=== PATIENT | female | born 1990 | race Caucasian/White ===

== ENCOUNTER 2020-01-20 15:25 | Outpatient (REF) | payer OTHER, MEDICAID, SELFPAY | END 2020-01-20 15:26 | disposition home or self-care (01) | LOC: HO.LAB 15:25 | PROVIDERS: Visit Provider Internal Medicine | DX: Z20.828 Contact with and (suspected) exposure to other viral communicable diseases (principal) | CPT/HCPCS: C9803; U0003 ==

== ENCOUNTER 2022-06-26 18:51 | Emergency (ER) | payer MEDICAID, SELFPAY ==
--- NOTE | ~2022-06-26 | US_ITS ---
EXAMINATION: US OB LIMITED CLINICAL INFORMATION: Fall. Assess movement, evaluate for hemorrhage. COMPARISON: None available. TECHNIQUE: Grayscale, Doppler, and cine images were obtained. FINDINGS: Single intrauterine gestation identified. heart rate measuring 115 bpm. Normal movement. Unremarkable-appearing posterior placenta. US/US OB limited IMPRESSION: Single intrauterine gestation with a heart rate measuring 115 bpm and normal movement. Unremarkable placenta.
[2022-06-26 18:55] VITALS: BP 105/61; PULSE 100; RESP 20; TEMP 36.6; O2SAT 100; BMI 34.7
[2022-06-26 19:29] LABS: MANUAL DIFF FLAG NO
[2022-06-26 19:31] LABS: Basophils Percent Auto 0.1 % (0-2); Eosinophils Absolute Auto 0.1 X10*3/uL (0.0-0.4); Eosinophils Percent Auto 0.8 % (0-4); Hematocrit 31.8 % (37.0-47.0); Hemoglobin 10.4 g/dl (12.0-16.0); Imm Gran Abs Auto 0.04 X10*3/uL (0.00-0.03); Imm Gran Pct Auto 0.5 % (0.0-0.4); Lymphocytes Absolute Auto 1.8 X10*3/uL (1.2-4.9); Lymphocytes Percent Auto 19.8 % (20-40); Mean Corpuscular HGB Conc 32.7 g/dl (31.0-35.0); Mean Corpuscular Hemoglobin 29.7 pg (27.0-33.0); Mean Corpuscular Volume 90.9 fL (80.0-98.0); Mean Platelet Volume 10.4 fL (9.4-12.3); Monocytes Absolute Auto 0.7 X10*3/uL (0.1-1.2); Monocytes Percent Auto 7.8 % (2-11); Neutrophils Absolute Auto 6.3 x10*3/uL (2.0-8.3); Platelet Count 218 X10*3/uL (160-400); Red Cell Distribution Width 11.9 % (11.0-16.0); White Blood Count 8.9 X10*3/uL (4.8-10.8)
[2022-06-26 19:46] LABS: COVID-19 Test Negative (Negative); IDNOW Serial# 08D9AD1C
[2022-06-26 19:54] LABS: Alanine Aminotransferase 9 U/L (0-31); Albumin Level 3.5 g/dL (3.5-5.0); Alkaline Phosphatase 88 U/L (39-117); Anion Gap 10 (12-20); Aspartate Amino Transferase 15 U/L (5-31); Bilirubin Total 0.2 mg/dL (0.0-1.0); Blood Urea Nitrogen 7 mg/dL (9-16); Calcium 8.8 mg/dL (8.4-10.2); Carbon Dioxide 25 mmol/L (22-29); Chloride 107 mmol/L (96-108); Creatinine Clr Calc Pharmacy 130.6; Estimated Glomerular Filt Rate > 60; Glucose Random 101 mg/dL (60-115); Magnesium 1.8 mg/dL (1.6-2.6); Potassium 4.1 mmol/L (3.3-5.1); Sodium 138 mmol/L (135-145); Total Protein 6.2 g/dL (6.5-8.0)
[2022-06-26 20:11] LABS: HCG Quantitative 29242 mIU/mL
[2022-06-26 20:16] VITALS: BP 99/46; PULSE 79
[2022-06-26 20:17] VITALS: BP 103/41; PULSE 80
[2022-06-26 20:20] VITALS: BP 101/51; PULSE 80
[2022-06-26 20:22] VITALS: BP 103/41; PULSE 82; RESP 16; TEMP 36.8; O2SAT 98
[2022-06-26] MEDS: 0.9 % Sodium Chloride 1,000 ML 999 ML IV (20:31)
[2022-06-26 20:40] LABS: Appearance Urine Cloudy; Color Urine Yellow; Glucose Urine UA Negative (Negative); Leukocyte Esterase Urine Trace (Negative); Nitrite Urine Negative (Negative); UMIC TRIGGER UACC YES; Urine Blood Negative (Negative); Urine Ketones Negative (Negative); Urine Protein Negative (Neg-Trace)
[2022-06-26 20:45] LABS: Bacteria Urine 3+ (None Seen); Hyaline Casts Urine 0-2 /LPF (0-2); RBC Urine 0-2 /HPF (0-2); WBC Urine 0-5 /HPF (0-5)
--- NOTE | 2022-06-26 20:46 | ED_ITS ---
HPI - General Adult General Chief complaint: Fall Stated complaint: Fall/Dizziness/7 months Time Seen by Provider: 06/26/22 19:56 Source: patient, family, RN notes reviewed, old records reviewed and flag signalman Mode of arrival: ambulatory Limitations: no limitations History of Present Illness HPI narrative: 32-year-old female with past medical history significant for anemia presents for evaluation of dizziness and fall. Patient reports that she is 29 weeks , . She states that around noon today she felt dizzy causing her to fall to the ground. She states that ?the room is spinning and I felt lightheaded. ? She states that this has happened in the past with her Patient complains of mild right hip pain Denies hitting head or losing consciousness. No abdominal pain, vaginal bleeding or discharge Related Data Previous Rx's Medication Instructions Recorded amoxicillin 500 mg tablet 500 mg PO TID #15 tabs 06/26/22 Allergies Allergy/AdvReac Type Severity Reaction Status Date / Time latex [LATEX] AdvReac Mild RASH Unverified 10/27/19 19:48 Review of Systems Constitutional: Constitutional: Reports as per HPI, Denies chills, Denies fatigue, Denies fever(s) and Denies headache(s) Comments: Reports dizziness ENT: Denies headache(s) Cardiovascular: Cardiovascular: Denies chest pain and Denies dyspnea Respiratory: Respiratory: Denies cough and Denies dyspnea Gastrointestinal: Gastrointestinal: Denies abdominal pain, Denies constipation and Denies vomiting Genitourinary: Genitourinary: Denies dysuria Musculoskeletal: Musculoskeletal: Reports arthralgias (Reports right hip pain) Neurologic: Denies headache(s) and Denies focal weakness Endocrine: Endocrine: Denies fatigue PMFSH Social History Social History Advance Directives: No Advance Directives Information Provided: No Physical Exam ED Vital Signs: Vital Signs - 24 hr 06/26/22 18:55 06/26/22 20:16 06/26/22 20:22 Temperature 97.9 F 98.2 F Pulse Rate 100 79 82 Respiratory Rate 20 16 Blood Pressure 105/61 99/46 L 103/41 L Pulse Oximetry 100 98 Oxygen Delivery Method Room Air Room Air 06/26/22 20:17 06/26/22 20:20 Temperature Pulse Rate 80 80 Respiratory Rate Blood Pressure 103/41 L 101/51 L Pulse Oximetry Oxygen Delivery Method BMI result Body Mass Index 34.7 Const General: healthy appearing, comfortable, no acute distress, alert and awake Nutritional Appearance: well nourished Orientation/consciousness: patient oriented x3 HENMT Head: Yes normocephalic and Yes atraumatic Eyes Eyelids: Yes eyelids normal Conjunctivae: conjunctivae normal Sclerae: sclerae normal Corneas: corneas normal Pupils: Equal, round and reactive pupils present EOM: EOMs intact bilaterally Neck Neck: Yes full ROM Resp Effort & Inspection: normal respiratory effort, able to speak in complete sentences, no audible wheezes and not labored Auscultation: clear to auscultation bilaterally Cardio Rate: regular rate Rhythm: regular rhythm GI Inspection: Yes distended (Gravid abdomen) Palpation (GI): nontender and no guarding Back/Spine/Pelvis Other: No visual or palpable deformities the hips or pelvis. Patient has full range of motion to the H lower extremities bilaterally without deformity. No tenderness to the hips bilaterally. Skin General skin exam: no rashes or lesions noted and elasticity normal Neuro General: patient oriented x3 Cranial nerves: Yes CN's II-XII intact bilaterally, Yes Equal, round and reactive pupils present and Yes Bilaterally intact EOM present Cognition (Neuro): normal cognition Extrem Other: Moving all extremities well without any obvious deformities Medications Administered Generic Name Dose Route Start Last Admin Trade Name Freq PRN Reason Stop Dose Admin Sodium Chloride 1,000 mls @ 999 mls/hr 06/26/22 20:30 06/26/22 20:31 Ns IV 06/26/22 21:30 999 mls/hr .Q1H1M SEGUNDO Administration Medical Decision Making Medical Decision Making [facility] Narrative: Patient complains of right hip pain no has no objective findings that area. She is able to stand without any difficulty, very low suspicion for hip or pelvis fracture. She was slightly hypotensive which could explain the patient's dizziness. She which she with IV fluids. She was not orthostatic. The patient has a history of anemia. She denies any bleeding from anywhere, denies black or bloody stool. She will follow-up with her OBGYN for this. Ultrasound does not show any evidence of traumatic subchronic hemorrhage or concerns with the fetus. All other mild anemia, the labs are without significant abnormality. The patient is ambulatory with a steady, even gait. Patient's urine sample has leukocyte esterase with 3+ bacteria. Difficult to determine if the specimen is contaminated versus actual UTI. Given that she is will treat with amoxicillin Differential Diagnosis Dizziness Orthostasis Vertigo UTI Dehydration Anemia Lab Data MDM Lab Attestation statement: I reviewed the patient's lab results. 06/26/22 19:25 06/26/22 19:25 Labs: Lab Results 06/26/22 06/26/22 06/26/22 Range/Units 19:25 19:25 19:25 WBC 8.9 (4.8-10.8) X10*3/uL RBC 3.50 L (4.20-5.50) X10*6/uL Hgb 10.4 L (12.0-16.0) g/dl Hct 31.8 L (37.0-47.0) % MCV 90.9 (80.0-98.0) fL MCH 29.7 (27.0-33.0) pg MCHC 32.7 (31.0-35.0) g/dl RDW 11.9 (11.0-16.0) % Plt Count 218 (160-400) X10*3/uL MPV 10.4 (9.4-12.3) fL Immature Gran % (Auto) 0.5 H (0.0-0.4) % Neut % (Auto) 71.0 (45-73) % Lymph % (Auto) 19.8 L (20-40) % [place] % (Auto) 7.8 (2-11) % Eos % (Auto) 0.8 (0-4) % Baso % (Auto) 0.1 (0-2) % Lymph # (Auto) 1.8 (1.2-4.9) X10*3/uL [place] # (Auto) 0.7 (0.1-1.2) X10*3/uL Eos # (Auto) 0.1 (0.0-0.4) X10*3/uL Baso # (Auto) 0.0 (0.0-0.2) X10*3/uL Abs Immat Gran (auto) 0.04 H (0.00-0.03) X10*3/uL Absolute Neuts (auto) 6.3 (2.0-8.3) x10*3/uL Absolute Nucleated RBC 0.000 (0.0-0.012) X10*3/uL Nucleated RBC % (auto) 0.0 (0.0-0.2) /100WBC Sodium 138 (135-145) mmol/L Potassium 4.1 (3.3-5.1) mmol/L Chloride 107 (96-108) mmol/L Carbon Dioxide 25 (22-29) mmol/L Anion Gap 10 L (12-20) BUN 7 L (9-16) mg/dL Creatinine 0.63 (0.5-1.4) mg/dL Estim Creat Clear Calc 130.6 Estimated GFR > 60 Random Glucose 101 (60-115) mg/dL Calcium 8.8 (8.4-10.2) mg/dL Magnesium 1.8 (1.6-2.6) mg/dL Total Bilirubin 0.2 (0.0-1.0) mg/dL AST 15 (5-31) U/L ALT 9 (0-31) U/L Alkaline Phosphatase 88 (39-117) U/L Total Protein 6.2 L (6.5-8.0) g/dL Albumin 3.5 (3.5-5.0) g/dL Beta HCG, Quant 41029 mIU/mL Urine Color Urine Appearance Urine pH (5.0-9.0) Ur Specific [place] (1.005-1.025) Urine Protein (Neg-Trace) mg/dL Urine Glucose (UA) (Negative) mg/dL Urine Ketones (Negative) mg/dL Urine Blood (Negative) Urine Nitrite (Negative) Ur Leukocyte Esterase (Negative) COVID-19 (JESUS) Negative (Negative) COVID-19 Clin Com See Note 06/26/22 Range/Units 20:33 WBC (4.8-10.8) X10*3/uL RBC (4.20-5.50) X10*6/uL Hgb (12.0-16.0) g/dl Hct (37.0-47.0) % MCV (80.0-98.0) fL MCH (27.0-33.0) pg MCHC (31.0-35.0) g/dl RDW (11.0-16.0) % Plt Count (160-400) X10*3/uL MPV (9.4-12.3) fL Immature Gran % (Auto) (0.0-0.4) % Neut % (Auto) (45-73) % Lymph % (Auto) (20-40) % [place] % (Auto) (2-11) % Eos % (Auto) (0-4) % Baso % (Auto) (0-2) % Lymph # (Auto) (1.2-4.9) X10*3/uL [place] # (Auto) (0.1-1.2) X10*3/uL Eos # (Auto) (0.0-0.4) X10*3/uL Baso # (Auto) (0.0-0.2) X10*3/uL Abs Immat Gran (auto) (0.00-0.03) X10*3/uL Absolute Neuts (auto) (2.0-8.3) x10*3/uL Absolute Nucleated RBC (0.0-0.012) X10*3/uL Nucleated RBC % (auto) (0.0-0.2) /100WBC Sodium (135-145) mmol/L Potassium (3.3-5.1) mmol/L Chloride (96-108) mmol/L Carbon Dioxide (22-29) mmol/L Anion Gap (12-20) BUN (9-16) mg/dL Creatinine (0.5-1.4) mg/dL Estim Creat Clear Calc Estimated GFR Random Glucose (60-115) mg/dL Calcium (8.4-10.2) mg/dL Magnesium (1.6-2.6) mg/dL Total Bilirubin (0.0-1.0) mg/dL AST (5-31) U/L ALT (0-31) U/L Alkaline Phosphatase (39-117) U/L Total Protein (6.5-8.0) g/dL Albumin (3.5-5.0) g/dL Beta HCG, Quant mIU/mL Urine Color Yellow Urine Appearance Cloudy Urine pH 7.0 (5.0-9.0) Ur Specific [place] 1.020 (1.005-1.025) Urine Protein Negative (Neg-Trace) mg/dL Urine Glucose (UA) Negative (Negative) mg/dL Urine Ketones Negative (Negative) mg/dL Urine Blood Negative (Negative) Urine Nitrite Negative (Negative) Ur Leukocyte Esterase Trace H (Negative) COVID-19 (JESUS) (Negative) COVID-19 Clin Com Radiology Impression Discussion of test interpretation with radiology: I have reviewed the radiologist's reading. (Unremarkable 29 week ultrasound) Discharge Plan Discharge Clinical Impression: Dizziness, , UTI (urinary tract infection) in in third trimester Patient Disposition: Home, Self-Care Instructions: Urinary Tract Infection in (ED) Additional Instructions: Your blood work showed a mild anemia. This is not likely to be the cause of your dizziness Your blood pressure was somewhat low and you will treat with IV fluids Your urine sample shows concern for urinary tract infection Take the amoxicillin 3 times daily for the next 5 days Follow-up with your OBGYN Prescriptions: New amoxicillin 500 mg tablet 500 mg PO TID Qty: 15 0RF
== END 2022-06-26 22:16 | disposition home or self-care (01) ==
PROVIDERS: Physician Assistant; Emergency Provider Internal Medicine
DX: O26.893 Other specified pregnancy related conditions, third trimester (principal); R42 Dizziness and giddiness; M25.551 Pain in right hip; O23.43 Unspecified infection of urinary tract in pregnancy, third trimester; N39.0 Urinary tract infection, site not specified; Z3A.29 29 weeks gestation of pregnancy; Z20.822 Contact with and (suspected) exposure to COVID-19
CPT/HCPCS: 76815; 80053; 81001; 83735; 84702; 85025; 87635; 96360; 96361; 99284; 99285

== ENCOUNTER 2023-03-19 09:17 | Emergency (ER) | payer MEDICAID, SELFPAY ==
--- NOTE | ~2023-03-19 | CT_ITS ---
EXAMINATION: CT ABDOMEN AND PELVIS WITH CONTRAST CLINICAL INFORMATION: Right lower quadrant abdominal pain COMPARISON: None available. TECHNIQUE: Multidetector volumetric images were obtained from the superior aspect of the liver through the pubic symphysis following administration 85 mL of Omnipaque 350 intravenous contrast. Sagittal and coronal reformatted images were obtained on the technologist's workstation. This CT examination was performed using dose optimization techniques as appropriate, variously including the following: *Automated exposure control *Adjustment of mA and/or kV according to patient size (this includes techniques or standardized protocols for targeted exams where dose is matched to indication/reason for exam; i.e. extremities or head) *Use of iterative reconstruction technique DLP: 459 mGy-cm FINDINGS: Visualized lung bases are well aerated. The liver is normal in size. The gallbladder is normal in appearance. The pancreas, spleen and adrenal glands are unremarkable. Symmetrically enhancing kidneys. No hydronephrosis of either kidney. Debris-filled stomach. Normal caliber loops of small and large bowel. Mild colonic stool burden. Normal appendix. Normal caliber abdominal aorta. Dilated refluxing bilateral ovarian veins, more prominent on the left. Mild bilateral periuterine varices. The bladder is normal in appearance. Anteverted uterus. Uterus appears adherent to the anterior abdominal wall, possibly a post change. Numerous follicles noted within the right ovary. Trace amount of free pelvic fluid, likely physiologic. No inguinal lymphadenopathy. No acute osseous abnormality. CT/CT abdomen pelvis w IV con IMPRESSION: 1. No CT evidence for acute abnormality within the abdomen or pelvis. Normal appendix. 2. Dilated refluxing bilateral ovarian veins, more prominent on the left. Mild bilateral periuterine varices. Findings are nonspecific but can be seen in the setting of retroperitoneal venous malformation. 3. Uterus appears adherent to the anterior abdominal wall, possibly a post change. Fleischner guidelines were followed.
[2023-03-19 09:20] VITALS: BP 108/49; PULSE 81; RESP 18; TEMP 36.4; O2SAT 97; BMI 29.5
[2023-03-19 09:39] LABS: MANUAL DIFF FLAG NO
[2023-03-19 09:40] LABS: Basophils Percent Auto 0.2 % (0-2); Eosinophils Absolute Auto 0.1 X10*3/uL (0.0-0.4); Eosinophils Percent Auto 1.7 % (0-4); Hematocrit 36.9 % (37.0-47.0); Hemoglobin 12.3 g/dl (12.0-16.0); Imm Gran Abs Auto 0.01 X10*3/uL (0.00-0.03); Imm Gran Pct Auto 0.2 % (0.0-0.4); Lymphocytes Absolute Auto 1.8 X10*3/uL (1.2-4.9); Lymphocytes Percent Auto 31.5 % (20-40); Mean Corpuscular HGB Conc 33.3 g/dl (31.0-35.0); Mean Corpuscular Hemoglobin 28.3 pg (27.0-33.0); Mean Corpuscular Volume 84.8 fL (80.0-98.0); Mean Platelet Volume 10.1 fL (9.4-12.3); Monocytes Absolute Auto 0.3 X10*3/uL (0.1-1.2); Monocytes Percent Auto 5.2 % (2-11); Neutrophils Absolute Auto 3.6 x10*3/uL (2.0-8.3); Neutrophils Percent Auto 61.2 % (45-73); Platelet Count 265 X10*3/uL (160-400); Red Blood Count 4.35 X10*6/uL (4.20-5.50); White Blood Count 5.8 X10*3/uL (4.8-10.8)
[2023-03-19 09:41] LABS: Appearance Urine Clear; Color Urine Yellow; Glucose Urine UA Negative (Negative); Leukocyte Esterase Urine Negative (Negative); Nitrite Urine Negative (Negative); PH 6.5 (5.0-9.0); Specific Gravity - Urine 1.025 (1.005-1.025); Urine Blood Negative (Negative); Urine Ketones Negative (Negative); Urine Protein Negative (Neg-Trace)
[2023-03-19 09:43] LABS: UPreg QC Valid YES; Urine Pregnancy NEGATIVE (NEGATIVE)
[2023-03-19 09:53] LABS: Bacteria Urine None Seen (None Seen); Hyaline Casts Urine 0-2 /LPF (0-2); RBC Urine 0-2 /HPF (0-2); WBC Urine 0-5 /HPF (0-5)
[2023-03-19 09:54] LABS: Alanine Aminotransferase 16 U/L (0-31); Albumin Level 4.2 g/dL (3.5-5.0); Alkaline Phosphatase 118 U/L (39-117); Anion Gap 11 (12-20); Aspartate Amino Transferase 16 U/L (5-31); Bilirubin Direct 0.2 mg/dL (0.0-0.5); Bilirubin Total 0.6 mg/dL (0.0-1.0); Blood Urea Nitrogen 10 mg/dL (9-16); Calcium 8.9 mg/dL (8.4-10.2); Carbon Dioxide 23 mmol/L (22-29); Chloride 108 mmol/L (96-108); Estimated Glomerular Filt Rate > 60; Glucose Random 94 mg/dL (60-115); Lipase 15 U/L (8-78); Potassium 3.8 mmol/L (3.3-5.1); Sodium 138 mmol/L (135-145); Total Protein 7.3 g/dL (6.5-8.0)
--- OUTSIDE RECORDS SUMMARY | 2023-03-19 09:59 | XMS_ITS | Continuity of Care Document ---
Author Name Unknown Organization [facility] Address [address] [place] [id number]- Care Team Providers Care Detail Maker And Fitter Name Role Phone Chitra Rodriguez MD Primary Care Physician Encounter [facility] [place] Date(s): 07/07/22 - 07/07/[address] [address]- Encounter Diagnosis Anemia(Final) - 07/07/22 (Final) - 07/07/22 Dizziness(Final) - 07/07/22 Discharge Disposition: Transferred to an intermediate care faci Attending Physician: Kellie Reeves MD Admitting Physician: Kellie Reeves MD Referring Physician: Not on Staff, Referring MD Allergies, Adverse Reactions, Alerts Substance Reaction Severity Status Latex Active Medications fluconazole 150 mg oral tablet See Instructions, 1 tablet By Mouth. May repeat in 3 days if symptoms persist., # 2 tablet, 0 Refills, Maintenance, 12/13/20 16:31:00 EDT, Tablet, [facility] #[id number], Partial fill upon patient request if the prescription is for a schedule II... Start Date: 12/13/20 Status: Ordered Ibuprofen 600 mg, By Mouth, Every 6 hours, Refills 0, Maintenance, 11/11/18 15:52:11 EDT Start Date: 11/11/18 Status: Ordered Ibuprofen 800 mg, By Mouth, Refills 0, Maintenance, 04/06/18 8:16:18 EST Start Date: 04/06/18 Status: Ordered Icy Hot - ointment 1 applicator, Topically, 2 times a day, 0 Refills, Maintenance, 04/06/18 8:27:33 EST Start Date: 04/06/18 Status: Ordered levOCARNitine 330 mg oral tablet 660 mg, 2, tablet, By Mouth, 3 times a day, # 540 tablet, Refills 6, Tot. Refills 6, Maintenance, 12/23/16 14:13:05, Print Requisition Start Date: 12/23/16 Stop Date: 09/14/18 Status: Ordered methocarbamol 750 mg oral tablet 2 tablet = 1,500 mg, By Mouth, 4 times a day, # 42 tablet, 0 Refills, Maintenance, 11/11/18 15:51:45 EDT, Tablet Start Date: 11/11/18 Stop Date: 11/18/18 Status: Ordered Performix P5 Performix P5, See Instructions, # 180 Gm, Refills 1, Tot. Refills 1, Maintenance, Ketamine 10% Baclofen 2% Cyclobenzaprine 2% Diclofenac 3% Gabapentin 10% Bupivicaine 2% in Liposomal cream, 06/08/18 16:04:38 EDT, Compound Start Date: 06/08/18 Status: Ordered PNV By Mouth, Daily, 0 Refills, Maintenance, 06/23/22 10:29:00 EDT, Partial fill upon patient request if the prescription is for a schedule II opioid drug. 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 Vital Signs Most recent to oldest [Reference Range]: 1 2 3 Height 158 cm (07/07/22 2:40 PM) Oxygen Saturation [94-100 %] 99 % (07/07/22 6:30 PM) 100 % (07/07/22 6:00 PM) 99 % (07/07/22 5:00 PM) Pulse Rate [55-90 bpm] 80 bpm (07/07/22 6:30 PM) 85 bpm (07/07/22 6:00 PM) 65 bpm (07/07/22 5:00 PM) Blood Pressure [90-138/55-84 mm Hg] 100/64mm Hg (07/07/22 6:30 PM) 90/64mm Hg (07/07/22 6:00 PM) 97/47mm Hg (07/07/22 5:00 PM) Respiratory Rate [16-30 br/min] 16 br/min (07/07/22 6:30 PM) 18 br/min (07/07/22 6:00 PM) 16 br/min (07/07/22 5:00 PM) Temperature [96.8-100.4 DegF] 98 DegF (07/07/22 6:00 PM) 98.3 DegF (07/07/22 2:40 PM) Mode of Delivery (Oxygen) Room air (07/07/22 6:30 PM) Room air (07/07/22 6:00 PM) Room air (07/07/22 5:00 PM) Temperature Route Oral (07/07/22 6:00 PM) Oral (07/07/22 2:40 PM) Social History Social History Type Response Smoking Status Former smoker, quit more than 30 days ago; Exposure to Secondhand Smoke: No; Tobacco user in household: No; Other: quit with ; entered on: 06/23/22 Sex Note * Sharron Jarvis MD: PERFORM, SIGN, VERIFY Event Display: Patient Education Handout Authored Date: [id number] Patient Care team information Care Team Personnel Name: Maegan Schmitz RN Position: [facility] ED RN W/OE and Tasks Member Role: Patient Care Provider Name: Sharron Jarvis MD Position: [facility] Resident Member Role: ED Resident Address: Address: [address] [place] [address] Name: Kellie Reeves MD Position: [facility] Resident Member Role: Admitting Physician Address: Address: [address] [place] [address] Care Team Related Persons Name: LUC BONDS Address: home [address] [place] [address] Name: MENA MOSHER Name: GEOVANY SHAW
--- OUTSIDE RECORDS SUMMARY | 2023-03-19 09:59 | XMS_ITS | Continuity of Care Document ---
Author Name Unknown Organization [facility] Address [address] [place] [address], [address] [place] [address]- Care Team Providers Care Recreational Facilities Motel Manager Name Role Phone Michael RHODES, Chitra Primary Care Physician [place] [facility] [place]04[place] - 08/11/[place] [facility] [address] [facility], [address]th [place] [address]- Attending Physician: Shady RHODES [OB], Adeline Angulo Referring Physician: Gustavo RHODES, Mariposa Escobedo Allergies, Adverse Reactions, Alerts Substance Reaction Severity Status Latex Active Immunizations Given and Recorded Vaccine Date Status Refusal Reason tetanus/diphtheria/pertussis, acel(Tdap) 07/17/22 Given tetanus/diphtheria/pertussis, acel(Tdap) 03/06/21 Recorded tetanus/diphtheria/pertussis, acel(Tdap) 02/05/17 Recorded influenza virus vaccine, inactivated 10/16/16 Shadi rded Medications clotrimazole 2% vaginal cream with applicator 1 application, Vaginally, Daily at bedtime, for 3 days, use as needed for yeast infection symptoms,# 21 Gm, 1 Refills, Acute 08/17/22 12:33:00 EDT, 08/11/22 12:33:00 EDT, Cream, [facility][id number], Partial fill upon patient request if the pr... Start Date: 08/11/22 Stop Date: 08/17/22 Status: Ordered iron sulfate By Mouth, 0 Refills, Maintenance, 07/21/22 11:10:00 EDT, Partial fill upon patient request if the prescription is for a schedule II opioid drug. Start Date: 07/21/22 Status: Ordered levOCARNitine 330 mg oral tablet 990 mg, 3, tablet, By Mouth, 4 times a day, with meals, # 360 tablet, Refills 3, Tot. Refills 3, Maintenance, 08/04/22 14:08:00 EDT, Route to Pharmacy Electronically, [facility] #[id number], Partial fill upon patient request if the prescription i... Start Date: 08/04/22 Status: Ordered MiraLax oral powder for reconstitution = 17 Gm, By Mouth, Daily, dissolve in water before taking, # 527 Gm, 0 Refills, Maintenance, 07/21/22 12:39:00 EDT, REC Powder, [facility] #[id number], Partial fill upon patient request if the prescription is for a schedule II opioid drug., 17 Gm... Start Date: 07/21/22 Status: Ordered PNV By Mouth, Daily, 0 Refills, Maintenance, 06/23/22 10:29:00 EDT, Partial fill upon patient request if the prescription is for a schedule II opioid drug. Start Date: 06/23/22 Status: Ordered Vandazole 0.75% vaginal gel with applicator 1 applicator, Vaginally, Daily at bedtime, for 5 days, # 70 Gm, 1 Refills, Acute 08/21/22 12:33:00 EDT, 08/11/22 12:33:00 EDT, Gel, [facility] #[id number], Partial fill upon patient request if the prescription is for a schedule II opioid drug., 1... Start Date: 08/11/22 Stop Date: 08/21/22 Status: Ordered Problem List Condition Confirmation Course Effective Dates Status Health St atus Informant Anemia Confirmed Active Carnitine degeneration Confirmed Active Size of fetus inconsistent with dates, antepartum Confirmed Active History of delivery affecting Confirmed Active History of HPV infection Confirmed Active Uses Moroccan as primary spoken language Confirmed Active Vital Signs Most recent to oldest [Reference Range]: 1 Height 158 cm (08/04/22 11:36 AM) Weight 68.65 kg (08/04/22 11:36 AM) Body Mass Index [18.5-24.99 kg/m2] 27.5 kg/m2 *H* (08/04/22 11:36 AM) Blood Pressure [90-138/55-84 mm Hg] 109/ 56mm Hg (08/04/22 11:36 AM) Blood pressure sites Arm, right (08/04/22 11:36 AM) Weight Obtained Via Standing scale (08/04/22 11:36 AM) Social History Social History Type Response Smoking Status Former smoker, quit more than 30 days ago; Exposure to Secondhand Smoke: No; Tobacco user in household: No; Other: quit with ; entered on: 06/23/22 Sex Patient Care team information Care Team Related Persons Name: LCU BONDS Address: [address] [address] Name: MENA MOSHER Name: CAROL ANN CROCKETT Address: home [address] [place] [address] Name: GEOVANY SHAW
--- OUTSIDE RECORDS SUMMARY | 2023-03-19 09:59 | XMS_ITS | Continuity of Care Document ---
Author Name Unknown [facility] Address [address] [facility] [address] [facility], [address] [place] [address]- Care Team Providers Care Inventory Transcriber Name Role Phone Chitra Rodriguez MD [id number] [address] [facility] [address] [facility]th [address] [place], [place] [address] Attending Physician: Not on Staff, Attending MD Referring Physician: Lakshmi Bhatia MD Allergies, Adverse Reactions, Alerts Substance Reaction Severity Status Latex Active Immunizations Given and Recorded Vaccine Date Status Refusal Reason tetanus/diphtheria/pertussis, acel(Tdap) 07/17/22 Given tetanus/diphtheria/pertussis, acel(Tdap) 03/06/21 Recorded tetanus/diphtheria/pertussis, acel(Tdap) 02/05/17 Recorded influenza virus vaccine, inactivated 10/16/16 Shadi rded Medications acetaminophen 500 mg oral tablet 2 tablet = 1,000 mg, By Mouth, Every 6 hours, PRN as needed for pain, , 90 day supply notindicated., # 50 tablet, 0 Refills, Maintenance, 09/04/22 8:30:00 EDT, Tablet, [facility]#[id number], Partial fill upon patient request if the pr... Start Date: 09/04/22 Status: Ordered ibuprofen 600 mg oral tablet 600 mg, 1, tablet, By Mouth, 4 times a day, PRN, , 90 day supply not indicated., # 120 tablet, Refills 0, Tot. Refills 0, Maintenance, for pain, 09/04/22 8:30:00 EDT, Route to Pharmacy Electronically, [facility] #[id number], Partial lindy... Start Date: 09/04/22 Status: Ordered iron sulfate By Mouth, 0 Refills, Maintenance, 07/21/22 11:10:00 EDT, Partial fill upon patient request if the prescription is for a schedule II opioid drug. Start Date: 07/21/22 Status: Ordered levOCARNitine 330 mg oral tablet 990 mg, 3, tablet, By Mouth, 3 times a day, with meals, # 360 tablet, Refills 3, Tot. Refills 3, Maintenance, 01/07/23 15:16:00 EST, Route to Pharmacy Electronically, [facility] #[id number], Partial fill upon patient request if the prescription i... Start Date: 01/07/23 Status: Ordered MiraLax oral powder for reconstitution = 17 Gm, By Mouth, Daily, dissolve in water before taking; , 90 day supply not indicated., # 255 Gm, 0 Refills, Maintenance, 09/04/22 8:30:00 EDT, REC Powder, [facility] #[id number], Partial fill upon patient request if the prescription... Start Date: 09/04/22 Status: Ordered MiraLax oral powder for reconstitution = 17 Gm, By Mouth, Daily, dissolve in water before taking, # 527 Gm, 0 Refills, Maintenance, 07/21/22 12:39:00 EDT, REC Powder, [facility] #[id number], Partial fill upon patient request if the prescription is for a schedule II opioid drug., 17 Gm... Start Date: 07/21/22 Status: Ordered oxyCODONE 5 mg oral tablet 5 mg, 1, tablet, By Mouth, Every 6 hours, PRN, , 90 day supply not indicated., # 10 tablet, Refills 0, Tot. Refills 0, Maintenance, for pain, 09/04/22 8:30:00 EDT, Route to Pharmacy Electronically, [facility] #[id number], Partial fill u... Start Date: 09/04/22 Status: Ordered PNV By Mouth, Daily, 0 Refills, Maintenance, 06/23/22 10:29:00 EDT, Partial fill upon patient request if the prescription is for a schedule II opioid drug. Start Date: 06/23/22 Status: Ordered senna - oral tablet 2 tablet, By Mouth, Daily at bedtime, PRN for constipation, , 90 day supply not indicated., # 60 tablet, 0 Refills, Maintenance, 09/04/22 8:30:00 EDT, Tablet, [facility] #[id number], Partial fill upon patient request if the prescription... 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
--- OUTSIDE RECORDS SUMMARY | 2023-03-19 09:59 | XMS_ITS | Continuity of Care Document ---
Author Name Unknown Organization [facility] [employer] [facility] Address [address], 4t [place] [address]- Care Team Providers Care Computer Systems Designer Name Role Phone Michael RHODES, Chitra Primary Care Phys[id number] Date(s): 07/25/22 - 08/01/22 [facility] [employer] [facility] [address], 4th [place] [address]- Attending Physician: Tova Bell MD Referring Physician: Delia Ortega MD Allergies, Adverse Reactions, Alerts Substance Reaction Severity Status Latex Active Immunizations Given and Recorded Vaccine Date Status Refusal Reason tetanus/diphtheria/pertussis, acel(Tdap) 07/17/22 Given tetanus/diphtheria/pertussis, acel(Tdap) 03/06/21 Recorded tetanus/diphtheria/pertussis, acel(Tdap) 02/05/17 Recorded influenza virus vaccine, inactivated 10/16/16 Shadi rded Medications iron sulfate By Mouth, 0 Refills, Maintenance, 07/21/22 11:10:00 EDT, Partial fill upon patient request if the prescription is for a schedule II opioid drug. Start Date: 07/21/22 Status: Ordered MiraLax oral powder for reconstitution = 17 Gm, By Mouth, Daily, dissolve in water before taking, # 527 Gm, 0 Refills, Maintenance, 07/21/22 12:39:00 EDT, REC Powder, [id number], Partial fill upon patient request if the prescription is for a schedule II opioid drug., 17 Gm... Start Date: 07/21/22 Status: Ordered PNV By Mouth, Daily, 0 Refills, Maintenance, 06/23/22 10:29:00 EDT, Partial fill upon patient request if the prescription is for a schedule II opioid drug. Start Date: 06/23/22 Status: Ordered Problem List Condition Confirmation Course Effective Dates Status Health St atus Informant Anemia Confirmed Active Carnitine degeneration Confirmed Active Size of fetus inconsistent with dates, antepartum Confirmed Active History of delivery affecting Confirmed Active History of HPV infection Confirmed Active Uses Moroccan as primary spoken language Confirmed Active Social History Social History Type Response Smoking Status Former smoker, quit more than 30 days ago; Exposure to Secondhand Smoke: No; Tobacco user in household: No; Other: quit with ; entered on: 06/23/22 Sex Radiology * Event Display: [facility] Standard Anatomy Survey, Lvl 1 * Event Display: [facility] Standard Anatomy Survey, Lvl 1 Authored Date: [id number] OBSTETRICS REPORT PATIENT INFO: CMRN: [id number] BMRN: [id number] : [birth year] (32 yrs)(F) Name: ANDRZEJ SERRANO Visit Date: 07/25/2022 08:09 am VIDHI PERFORMED BY: Performed By: Valerie Cruz RDMS Attending: Adeline Dc MD Referred By: Delia Ortega MD Location: [address] INDICATIONS: Size of fetus inconsistent with dates, O26.849 antepartum History of delivery affecting O34.219 EVALUATION: Num Of Fetuses: 1 Heart Rate(bpm): 150 Cardiac Activity: Present Presentation: Cephalic Placenta: Posterior Amniotic Fluid PENG FV: Within normal limits PENG Sum(cm) Largest Pocket(cm) 12.2 3.6 RUQ(cm) RLQ(cm) LUQ(cm) LLQ(cm) 2.7 3.5 3.6 2.4 BIOMETRY: BPD: 81.1 mm G.Age: 32w 4d 10 % HC: 296.3 mm G.Age: 32w 5d 2 % AC: 293.5 mm G.Age: 33w 2d 30 % FL: 61.9 mm G.Age: 32w 1d 4 % HUM: 55.8 mm G.Age: 32w 3d 24 % CI: 75.35 % 70 - 86 FL/HC: 20.9 % 19.4 - 21.8 HC/AC: 1.01 0.96 - 1.11 FL/BPD: 76.3 % 71 - 87 FL/AC: 21.1 % 20 - 24 Est. FW: 2064 gm 4 lb 9 oz 13 % GESTATIONAL AGE: LMP: 34w 1d Date: 11/28/21 STACY: 09/04/22 U/S Today: 32w 5d STACY: 09/14/22 Best: 34w 1d Det. By: LMP (11/28/21) STACY: 09/04/22 ANATOMY: Cranium: No anomalies seen Cavum: No anomalies seen Ventricles: No anomalies seen Choroid Plexus: No anomalies seen Cerebellum: NOT WELL SEEN Posterior Fossa: NOT WELL SEEN Nuchal Fold: Not measured due to GA Face: No anomalies but LIMITED views Lips: No anomalies but LIMITED views Heart: 4-chamber appeared normal RVOT: No anomalies seen LVOT: No anomalies seen Diaphragm: No anomalies seen Stomach: No anomalies seen Abdomen: No anomalies seen Abdominal Wall: NOT WELL SEEN Cord Vessels: 3-vessel cord Kidneys: No anomalies seen Bladder: No anomalies seen Spine: No anomalies but LIMITED views Upper Extremities: NOT WELL SEEN Lower Extremities: NOT WELL SEEN CERVIX UTERUS ADNEXA: Cervix Not well seen COMMENTS: The exam was limited due to late gestational age. Otherwise, the anatomy survey was unremarkable. growth is adequate. Adeline Dc MD Electronically Signed Final Report 07/25/2022 02:55 pm * Event Display: [facility] Standard Anatomy Survey, Lvl 1 Authored Date: [id number] Please click on pdf link to open report Patient Care team information Care Team Related Persons Name: LUC BONDS Address: [address] [address] Name: MENA MOSHER Name: CAROL ANN CROCKETT Address: home [address] [place] [address] Name: GEOVANY SHAW
--- OUTSIDE RECORDS SUMMARY | 2023-03-19 09:59 | XMS_ITS | Continuity of Care Document ---
Author Name Unknown Organization [facility] Address [address] [place] [address]- Care Team Providers Care Civil Service Clerk Name Role Phone Chitra Rodriguez MD Primary Care Physician [id number]10[facility] - 12/17/20 [facility] [address] [place] [address]- Encounter Diagnosis Pelvic pain(Discharge Diagnosis) - 12/10/20 Low back pain(Discharge Diagnosis) - 12/10/20 Attending Physician: Kerline Saxena MD Referring Physician: Chitra Rodriguez MD Allergies, Adverse Reactions, Alerts Substance Reaction Severity Status Latex Active Medications cyclobenzaprine 10 mg oral tablet 10 mg, 1, tablet, By Mouth, 2 times a day, PRN, for 10 days, # 20 tablet, Refills 0, Tot. Refills 0, Acute 12/20/20 16:26:00 EST, Spasm for spasm, 12/10/20 16:26:00 EDT, Route to Pharmacy Electronically, [facility] #[id number], Partial fill upo... Start Date: 12/10/20 Stop Date: 12/20/20 Status: Ordered fluconazole 150 mg oral tablet See Instructions, 1 tablet By Mouth. May repeat in 3 days if symptoms persist., # 2 tablet, 0 Refills, Maintenance, 12/13/20 16:31:00 EDT, Tablet, [facility] #[id number], Partial fill upon patient request if the [...] EDT, Compound Start Date: 06/08/18 Status: Ordered PredniSONE = 40 mg, By Mouth, Daily, 0 Refills, Maintenance, 11/11/18 15:48:40 EDT Start Date: 11/11/18 Stop Date: 11/14/18 Status: Ordered Problem List Diagnosis Diagnosis Type Effective Dates Health Status inical Service Informant Pelvic pain Discharge Diagnosis 12/10/20 Low back pain Discharge Diagnosis 12/10/20 Vital Signs Most recent to oldest [Reference Range]: 1 Height 155.7 cm (12/10/20 2:11 PM) Oxygen Saturation [94-100 %] 100 % (12/10/20 2:11 PM) Pulse Rate [55-90 bpm] 58 bpm (12/10/20 2:11 PM) Blood Pressure [90-138/55-84 mm Hg] 115/ 43mm Hg (12/10/20 2:11 PM) Temperature [96.8-100.4 DegF] 98.2 DegF (12/10/20 2:11 PM) Blood pressure sites Arm, right (12/10/20 2:11 PM) Temperature Route Temporal (12/10/20 2:11 PM)
--- OUTSIDE RECORDS SUMMARY | 2023-03-19 09:59 | XMS_ITS | Continuity of Care Document ---
Author Name Unknown Organization [facility] [employer] [facility] [facility] Address [address], 4t [place] [address]- Care Team Providers Care Manager Trust Name Role Phone Michael RHODES, Chitra Primary Care Physician [phone] [place] [facility] [place] - 08/25/22 [facility] [employer] [facility] [address], [address]th [place] [address]- Attending Physician: Shady RHODES [OB], Adeline Angulo [...] 08/04/22 14:08:00 EDT, Route to Pharmacy Electronically, [facility][id number], Partial fill upon patient request if the prescription i... Start Date: 08/04/22 Status: Ordered MiraLax oral powder for reconstitution = 17 Gm, By Mouth, Daily, dissolve in water before taking, # 527 Gm, 0 Refills, Maintenance, 07/21/22 12:39:00 EDT, REC Powder, [facility] #[id number], Partial fill upon patient request if the prescription is for a schedule II opioid drug., 17 Gm... Start Date: 07/21/22 Status: Ordered PNV By Mouth, Daily, 0 Refills, Maintenance, 06/23/22 10:29:00 EDT, Partial fill upon patient request if the prescription is for a schedule II opioid drug. Start Date: 06/23/22 Status: Ordered Valtrex 1 gm oral tablet 1 tablet = 1 Gm, By Mouth, 2 times a day, for 10 days, # 20 tablet, 0 Refills, Acute 08/28/22 10:36:00 EDT, 08/18/22 10:36:00 EDT, Tablet, [facility] #[id number], Partial fill upon patient request if the prescription is for a schedule II opioid d... Start Date: 08/18/22 Stop Date: 08/28/22 Status: Ordered Valtrex 500 mg oral tablet 500 mg, 1, tablet, By Mouth, 2 times a day, # 30 tablet, Refills 1, Tot. Refills 1, Acute 10/19/22 10:42:00 EDT, 08/28/22 10:36:00 EDT, Route to Pharmacy Electronically, [id number], Partial fill upon patient request if the prescriptio... 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 Uses Guatemalan as primary spoken language Confirmed Active Vital Signs Most recent to oldest [Reference Range]: 1 Height 158 cm (08/18/22 10:32 AM) Weight 70.83 kg (08/18/22 10:32 AM) Body Mass Index [18.5-24.99 kg/m2] 28.37 kg/m2 *H* (08/18/22 10:32 AM) Blood Pressure [90-138/55-84 mm Hg] 107/ 63mm Hg (08/18/22 10:32 AM) Blood pressure sites Arm, right (08/18/22 10:32 AM) Weight Obtained Via Standing scale (08/18/22 10:32 AM) Social History Social History Type Response Smoking Status Former smoker, quit more than 30 days ago; Exposure to Secondhand Smoke: No; Tobacco user in household: No; Other: quit with ; entered on: 06/23/22 Sex Patient Care team information Care Team Related Persons Name: LUC BONDS Address: [address] [address] Name: MENA MOSHER Name: CAROL ANN CROCKETT Address: [address] [place] [address] Name: GEOVANY SHAW
--- OUTSIDE RECORDS SUMMARY | 2023-03-19 09:59 | XMS_ITS | Continuity of Care Document ---
Author Name Unknown Organization [facility] Address [address], [address] [place] [address]- Care Team Providers Care Oxide Furnace Tender Name Role Phone Chitra Rodriguez MD Primary Care Physician [phone] [facility] [id number] Date(s): 01/19/23 - 02/18/23 [facility] [address], [address] [place], [place] [address] Attending Physician: AdmLin bowman Admitting Physician: AdmtrLin Referring Physician: Admtr, Lin Allergies, Adverse Reactions, Alerts Substance Reaction Severity [...] 0 Refills, Maintenance, 09/04/22 8:30:00 EDT, Tablet, [id number], Partial fill upon patient request if the pr... Start Date: 09/04/22 Status: Ordered ibuprofen 600 mg oral tablet 600 mg, 1, tablet, By Mouth, 4 times a day, PRN, , 90 day supply not indicated., # 120 tablet, Refills 0, Tot. Refills 0, Maintenance, for pain, 09/04/22 8:30:00 EDT, Route to Pharmacy Electronically, [facility] #[id number], Partial lindy... Start Date: 09/04/22 Status: Ordered [...] 01/07/23 15:16:00 EST, Route to Pharmacy Electronically, [facility] #[id number], Partial fill upon patient request if the prescription i... Start Date: 01/07/23 Status: Ordered MiraLax oral powder for reconstitution = 17 Gm, By Mouth, Daily, dissolve in water before taking; , 90 day supply not indicated., # 255 Gm, 0 Refills, Maintenance, 09/04/22 8:30:00 EDT, REC Powder, [facility] #[id number], Partial fill upon patient request if the prescription... Start Date: 09/04/22 Status: Ordered MiraLax oral powder for reconstitution = 17 Gm, By Mouth, Daily, dissolve in water before taking, # 527 Gm, 0 Refills, Maintenance, 07/21/22 12:39:00 EDT, REC Powder, [facility] #[id number], Partial fill upon patient request if the prescription is for a schedule II opioid drug., 17 Gm... Start Date: 07/21/22 Status: Ordered oxyCODONE 5 mg oral tablet 5 mg, 1, tablet, By Mouth, Every 6 hours, PRN, , 90 day supply not indicated., # 10 tablet, Refills 0, Tot. Refills 0, Maintenance, for pain, 09/04/22 8:30:00 EDT, Route to Pharmacy Electronically, [facility] #[id number], Partial fill u... Start Date: 09/04/22 Status: [...] 09/04/22 8:30:00 EDT, Tablet, [facility] #[id number], Partial fill upon patient request if the prescription... 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
--- OUTSIDE RECORDS SUMMARY | 2023-03-19 09:59 | XMS_ITS | Continuity of Care Document ---
Author Name Unknown Organization [facility] [facility] Address [address], 4t [place] [address]- Care Team Providers Care Tile Grader Name Role Phone Michael RHODES, Chitra Primary Care Physician [facility] [id number] Date(s): 08/04/22 - 09/03/22 [facility] [address], 4th [place] [address]- Allergies, Adverse Reactions, Alerts Substance Reaction Severity [...] 08/04/22 14:08:00 EDT, Route to Pharmacy Electronically, [facility] #[id number], Partial fill upon patient request if the prescription i... Start Date: 08/04/22 Status: Ordered MiraLax oral powder for reconstitution = 17 Gm, By Mouth, Daily, dissolve in water before taking, # 527 Gm, 0 Refills, Maintenance, 07/21/22 12:39:00 EDT, REC Powder, [facility] #[id number], Partial fill upon patient request if the prescription is for a schedule II opioid drug., 17 Gm... Start Date: 07/21/22 Status: Ordered PNV By Mouth, Daily, 0 Refills, Maintenance, 06/23/22 10:29:00 EDT, Partial fill upon patient request if the prescription is for a schedule II opioid drug. Start Date: 06/23/22 Status: Ordered Valtrex 500 mg oral tablet 500 mg, 1, tablet, By Mouth, 2 times a day, # 30 tablet, Refills 1, Tot. Refills 1, Acute 10/19/22 10:42:00 EDT, 08/28/22 10:36:00 EDT, Route to Pharmacy Electronically, [facility] #[id number], Partial fill upon patient request if the prescriptio... 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
--- OUTSIDE RECORDS SUMMARY | 2023-03-19 09:59 | XMS_ITS | Continuity of Care Document ---
Author Name Unknown Organization [facility] Address [address], 4t [place] [address]- Care Team Providers Care Burr Bench Hand Name Role Phone Michael RHODES, Chitra Primary Care Phys[id number] Date(s[facility] 07/17[facility]22 - 07/24/22 [facility] [facility] [address], [address]th [place] [address]- Attending Physician: Delia Ortega MD Allergies, Adverse Reactions, [...] Refills, Maintenance, 07/21/22 12:39:00 EDT, REC Powder, [facility] #[id number], Partial fill upon patient request if the [...] History of HPV infection Confirmed Active Uses Turkish as primary spoken language Confirmed Active Vital Signs Most recent to oldest [Reference Range]: 1 Height 158 cm (07/17/22 2:23 PM) Weight 67.2 kg (07/17/22 2:23 PM) Body Mass Index [18.5-24.99 kg/m2] 26.92 kg/m2 *H* (07/17/22 2:23 PM) Blood Pressure [90-138/55-84 mm Hg] 119/ 58mm Hg (07/17/22 2:23 PM) Blood pressure sites Arm, right (07/17/22 2:23 PM) Weight Obtained Via Standing scale (07/17/22 2:23 PM) Social History Social History Type Response Smoking Status Former smoker, quit more than 30 days ago; Exposure to Secondhand Smoke: No; Tobacco user in household: No; Other: quit with ; entered on: 06/23/22 Sex Laboratory * Event Display: CONSTRUCTION SITE CROSSING GUARD Pap Test, Non-BH Authored Date: * Event Display: CONSTRUCTION SITE CROSSING GUARD Pap Test, Non-BH Authored Date: Radiology * Event Display: Ultrasound Obstetric, Non-BH Authored Date: * Event Display: Ultrasound Obstetric, Non-BH Authored Date: * Event Display: Ultrasound Obstetric, Non-BH Authored Date: Patient Care team information Care Team Related Persons Name: LUC BONDS Address: home [address] [facility] [address] [place] [address] Name: MENA MOSHER Name: CAROL ANN CROCKETT Address: home [address] [place] [address] Name: GEOVANY SHAW
--- OUTSIDE RECORDS SUMMARY | 2023-03-19 09:59 | XMS_ITS | Continuity of Care Document ---
Author Name Unknown Organization [facility] [employer] [facility] Address [address], [address] [place] [address]- Care Team Providers Care Director Product Development Name Role Phone Michael RHODES, Chitra Primary Care Physician [phone] [place] [facility] [place] Date(s): 09/19/22 - 10/19/22 [facility] [employer] [facility] [address], [address]th [place] [address]- Allergies, Adverse Reactions, Alerts Substance Reaction Severity [...] 0 Refills, Maintenance, 09/04/22 8:30:00 EDT, Tablet, [id number], Partial fill upon patient request if the pr... Start Date: 09/04/22 Status: Ordered ibuprofen 600 mg oral tablet 600 mg, 1, tablet, By Mouth, 4 times a day, PRN, , 90 day supply not indicated., # 120 tablet, Refills 0, Tot. Refills 0, Maintenance, for pain, 09/04/22 8:30:00 EDT, Route to Pharmacy Electronically, [facility] #[id number], Partial lindy... Start Date: 09/04/22 Status: Ordered [...] 08/04/22 14:08:00 EDT, Route to Pharmacy Electronically, [facility] #[id number], Partial fill upon patient request if the prescription i... Start Date: 08/04/22 Status: Ordered MiraLax oral powder for reconstitution = 17 Gm, By Mouth, Daily, dissolve in water before taking; , 90 day supply not indicated., # 255 Gm, 0 Refills, Maintenance, 09/04/22 8:30:00 EDT, REC Powder, [facility] #[id number], Partial fill upon patient request if the prescription... Start Date: 09/04/22 Status: Ordered MiraLax oral powder for reconstitution = 17 Gm, By Mouth, Daily, dissolve in water before taking, # 527 Gm, 0 Refills, Maintenance, 07/21/22 12:39:00 EDT, REC Powder, [facility] #[id number], Partial fill upon patient request if the prescription is for a schedule II opioid drug., 17 Gm... Start Date: 07/21/22 Status: Ordered oxyCODONE 5 mg oral tablet 5 mg, 1, tablet, By Mouth, Every 6 hours, PRN, , 90 day supply not indicated., # 10 tablet, Refills 0, Tot. Refills 0, Maintenance, for pain, 09/04/22 8:30:00 EDT, Route to Pharmacy Electronically, [facility] #[id number], Partial fill u... Start Date: 09/04/22 Status: [...] 09/04/22 8:30:00 EDT, Tablet, [facility] #[id number], Partial fill upon patient request if the prescription... 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
--- OUTSIDE RECORDS SUMMARY | 2023-03-19 09:59 | XMS_ITS | Continuity of Care Document ---
Author Name Unknown Organization [facility] Address [address] [place] [address]- Care Team Providers Care Plastic Tile Setter Name Role Phone Michael RHODES, Chitra Primary Care Physician [place] [facility] [place]10[place] - 01/09[place]21 [facility] [address] [place], [place] [address] Attending Physician: Lin Dixon Admitting Physician: AdmtrLin Referring Physician: AdmtrLin Allergies, Adverse Reactions, Alerts Substance Reaction Severity Status Latex Active Medications fluconazole 150 mg oral tablet See Instructions, 1 tablet By Mouth. May repeat in 3 days if symptoms persist., # 2 tablet, 0 Refills, Maintenance, 12/13/20 16:31:00 EDT, Tablet, [facility] #[id number], Partial fill upon patient request if the [...]
--- OUTSIDE RECORDS SUMMARY | 2023-03-19 09:59 | XMS_ITS | Continuity of Care Document ---
Author Name Unknown Organization [facility] Address [address], [address]t [place] [address]- Care Team Providers Care Apprentice Lineman Third Step Name Role Phone Chitra Rodriguez MD [id number] Date(s): 10/21/22 - 10/28/22 [facility] [facility] [address], 4th [address] [place], [place] [address] Attending Physician: Lakshmi Bhatia MD Referring Physician: Shady RHODES [OB], Adeline Angulo Allergies, Adverse Reactions, Alerts Substance Reaction Severity [...] 0 Refills, Maintenance, 09/04/22 8:30:00 EDT, Tablet, [facility][id number], Partial fill upon patient request if the pr... Start Date: 09/04/22 Status: Ordered ibuprofen 600 mg oral tablet 600 mg, 1, tablet, By Mouth, 4 times a day, PRN, , 90 day supply not indicated., # 120 tablet, Refills 0, Tot. Refills 0, Maintenance, for pain, 09/04/22 8:30:00 EDT, Route to Pharmacy Electronically, [facility] #[id number], Partial lindy... Start Date: 09/04/22 Status: Ordered [...] 08/04/22 14:08:00 EDT, Route to Pharmacy Electronically, [facility] #[id number], Partial fill upon patient request if the prescription i... Start Date: 08/04/22 Status: Ordered MiraLax oral powder for reconstitution = 17 Gm, By Mouth, Daily, dissolve in water before taking; , 90 day supply not indicated., # 255 Gm, 0 Refills, Maintenance, 09/04/22 8:30:00 EDT, REC Powder, [facility] #[id number], Partial fill upon patient request if the prescription... Start Date: 09/04/22 Status: Ordered MiraLax oral powder for reconstitution = 17 Gm, By Mouth, Daily, dissolve in water before taking, # 527 Gm, 0 Refills, Maintenance, 07/21/22 12:39:00 EDT, REC Powder, [facility] #[id number], Partial fill upon patient request if the prescription is for a schedule II opioid drug., 17 Gm... Start Date: 07/21/22 Status: Ordered oxyCODONE 5 mg oral tablet 5 mg, 1, tablet, By Mouth, Every 6 hours, PRN, , 90 day supply not indicated., # 10 tablet, Refills 0, Tot. Refills 0, Maintenance, for pain, 09/04/22 8:30:00 EDT, Route to Pharmacy Electronically, [facility] #[id number], Partial fill u... Start Date: 09/04/22 Status: [...] 09/04/22 8:30:00 EDT, Tablet, [facility][id number], Partial fill upon patient request if the prescription... 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 Uses Thai as primary spoken language Confirmed Active Vital Signs Most recent to oldest [Reference Range]: 1 Height 158 cm (10/21/22 3:57 PM) Weight 65.18 kg (10/21/22 3:57 PM) Pulse Rate [55-90 bpm] 77 bpm (10/21/22 3:57 PM) Body Mass Index [18.5-24.99 kg/m2] 26.11 kg/m2 *H* (10/21/22 3:57 PM) Blood Pressure [90-138/55-84 mm Hg] 106/ 60mm Hg (10/21/22 3:57 PM) Respiratory Rate [16-30 br/min] 19 br/mi n (10/21/22 3:57 PM) Blood pressure sites Arm, right (10/21/22 3:57 PM) Dry Weight Obtained Via Standing scale (10/21/22 3:57 PM) Social History Social History Type Response Smoking Status Former smoker, quit more than 30 days ago; Exposure to Secondhand Smoke: No; Tobacco user in household: No; Other: quit with ; entered on: 06/23/22 Sex Note * Neha Franks: PERFORM, SIGN, VERIFY Event Display: Patient Education/Instruction Authored Date: [id number] [facility] *[facility] 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 Future Appointments ?[facility] [address] ?[address] ?[place],??[place],??[address] ?Phone:??--?Fax:??-- ?Appt. Date:??12/08/2022?10:00 AM ?Scheduled Provider:??Estuardo CORCORAN , Chelly Angulo ?*[facility] ?[address]??[place],??[place],??[address] ?Phone:??--?Fax:??-- ?Appt. Date:??01/19/2023?10:00 AM ?Scheduled Provider:??Garima Carolina Follow-Up Instructions ?? Diagnosis Anemia, unspecified; Encounter for sterilization; Maternal care for unspecified type scar from previous delivery; Other specified health status; Disorder of carnitine metabolism, unspecified Medications: Please continue your medications until treatment is completed or stopped by your provider. Discuss any questions related to medications with your provider. Medications to Continue with No Changes These medications were not printed or sent to your pharmacy Acetaminophen (acetaminophen 500 mg oral tablet) 2 tab(s) Oral every 6 hours as needed as needed for pain. , 90 day supply not indicated.. Refills: 0. Next Dose: Ferrous Sulfate (iron sulfate) Oral. Next Dose: Ibuprofen (ibuprofen 600 mg oral tablet) 1 tab(s) Oral 4 times a day as needed for pain. , 90 day supply not indicated.. Refills: 0. Next Dose: Levocarnitine (levOCARNitine 330 mg oral tablet) 3 tab(s) Oral 4 times a day. with meals. Refills: 3. Next Dose: Multivitamin, (PNV ) Oral Daily. Next Dose: Oxycodone (oxyCODONE 5 mg oral tablet) 1 tab(s) Oral every 6 hours as needed for pain. , 90 day supply not indicated.. Refills: 0. Next Dose: Polyethylene Glycol 3350 (MiraLax oral powder for reconstitution) 17 gram Oral Daily. dissolve in water before taking. Refills: 0. Next Dose: Polyethylene Glycol 3350 (MiraLax oral powder for reconstitution) 17 gram Oral Daily. dissolve in water before taking; , 90 day supply not indicated.. Refills: 0. Next Dose: Senna (senna - oral tablet) 2 tab(s) Oral Daily at Bedtime as needed for constipation. , 90 day supply not indicated.. Refills: 0. Next Dose: Allergy Info:?? Latex Medications Given This Visit Future Orders ?No future orders Vital Signs Height Weight BMI Blood Pressure / Temperature Pulse Rate Respiratory Rate 02 Sat Mode of Delivery / You can now view a summary of your hospital visit from the comfort of your home through a free online portal called [employer]. [employer] is a website that allows you to securely view your medical information including discharge summary, medications and follow-up visits. ??You can alsosend a secure electronic message to your doctor???s office to request appointments, renew medications or just ask a question. You can enroll at [email or web address] or register during your next office visit. Disclaimer:?? The information provided is of a general nature and is intended to be used in conjunction with the recommendations and advice of your health care practitioner. ??Every effort has been made to ensure that the information provided is accurate and complete at the time it is provided to you however, as your needs change, or, as new ??information becomes available, different or additional instructions may be required. If you have questions, please consult with your primary care provider or pharmacist, as appropriate. ??This information is not intended to serve as substitution for assessment and evaluation by a qualified health care provider. If you do not have a primary care provider, you may find a [facility] provider by calling [facility] [employer] [facility] at [phone]. [facility], in keeping with [facility] guidance, no longer requires face masks for staff, patientsor visitors in most situations. Similar to time spent indoors at other locations, there is the chance that you were exposed to respiratory viruses during your time with us (such as flu or COVID-19).? If you develop symptoms concerning for a viral respiratory infection, please seek testing (and treatment if indicated) from your medical provider or home test kit. For information about the plan of care including goals and instructions for your diagnosis, please see the patient education orders section of this document. Patient Education Materials?? The content of this educational material or handout may have been modified, supplemented, or adapted from its original content and format to support your individualized medical care. Please follow instructions discussed with your provider during this visit as well as any education documents you were given today. Patient Care team information Care Team Related Persons Name: RUTHY BONDSGAR Address: [place] [address] [address] Name: MENA MOSHER Address: [address] [address] Name: OMEGA CROWLEY Address: [address] Address: home [address] [place] [address] Name: CAROL ANN CROCKETT Address: home [address] [place] [address] Name: GEOVANY SHAW
--- OUTSIDE RECORDS SUMMARY | 2023-03-19 09:59 | XMS_ITS | Continuity of Care Document ---
Author Name Unknown Organization [facility] [employer] [email or web address] Address [address], [address] [place] [address]- Care Team Providers Care Recordings Librarian Name Role Phone Chitra Rodriguez MD Primary Care Physician [phone] [id number] Date(s): 08/11/22 - 08/18/22 [facility] [address], [address] [place], [place] [address] Attending Physician: Art Medina MD Referring Physician: Gustavo RHODES, Mariposa Escobedo Allergies, [...] 08/04/22 14:08:00 EDT, Route to Pharmacy Electronically, [facility] #[id number], Partial fill upon patient request if the prescription i... Start Date: 08/04/22 Status: Ordered MiraLax oral powder for reconstitution = 17 Gm, By Mouth, Daily, dissolve in water before taking, # 527 Gm, 0 Refills, Maintenance, 07/21/22 12:39:00 EDT, REC Powder, [facility] #[id number], Partial fill upon patient request if the [...] 08/28/22 10:36:00 EDT, 08/18/22 10:36:00 EDT, Tablet, [facility] #[id number], Partial fill upon patient request if the prescription is for a schedule II opioid d... Start Date: 08/18/22 Stop Date: 08/28/22 Status: Ordered Valtrex 500 mg oral tablet 500 mg, 1, tablet, By Mouth, 2 times a day, # 30 tablet, Refills 1, Tot. Refills 1, Acute 10/19/22 10:42:00 EDT, 08/28/22 10:36:00 EDT, Route to Pharmacy Electronically, [facility] #[id number], Partial fill upon patient request if the prescriptio... Start Date: 08/28/22 Stop Date: 10/19/22 Status: Ordered Vandazole 0.75% vaginal gel with applicator 1 applicator, Vaginally, Daily at bedtime, for 5 days, # 70 Gm, 1 Refills, Acute 08/21/22 12:33:00 EDT, 08/11/22 12:33:00 EDT, Gel, [facility] #[id number], Partial fill upon patient request if the [...] History of HPV infection Confirmed Active Uses Vietnamese as primary spoken language Confirmed Active Vital Signs Most recent to oldest [Reference Range]: 1 Height 158 cm (08/11/22 11:56 AM) Weight 70 kg (08/11/22 11:56 AM) Body Mass Index [18.5-24.99 kg/m2] 28.04 kg/m2 *H* (08/11/22 11:56 AM) Blood Pressure [90-138/55-84 mm Hg] 111/ 55mm Hg (08/11/22 11:56 AM) Blood pressure sites Arm, right (08/11/22 11:56 AM) Weight Obtained Via Standing scale (08/11/22 11:56 AM) Social History Social History Type Response Smoking Status Former smoker, quit more than 30 days ago; Exposure to Secondhand Smoke: No; Tobacco user in household: No; Other: quit with ; entered on: 06/23/22 Sex Patient Care team information Care Team Related Persons Name: LUC BONDS Address: [address] [address] Name: MENA MOSHER Name: CAROL ANN CROCKETT Address: [address] [place] [address] Name: GEOVANY SHAW
--- OUTSIDE RECORDS SUMMARY | 2023-03-19 09:59 | XMS_ITS | Continuity of Care Document ---
Author Name Unknown Organization [facility] Address [address], [address] [place] [address]- Care Team Providers Care Pan Washer Name Role Phone Michael RHODES, Chitra Primary Care Physician Encounter [facility] [id number] Date(s): 05/08/22 - 06/07/22 [facility] [address], [address] [place], [place] [address] Allergies, Adverse Reactions, Alerts Substance Reaction Severity Status Latex Active Medications fluconazole 150 mg oral tablet See Instructions, 1 tablet By Mouth. May repeat in 3 days if symptoms persist., # 2 tablet, 0 Refills, Maintenance, 12/13/20 16:31:00 EDT, Tablet, [facility] #[id number], Partial fill upon patient request if the [...] Date: 11/11/18 Stop Date: 11/14/18 Status: Ordered Patient Care team information Care Team Related Persons Name: LUC BONDS Address: home [address] [place] [address] Name: MENA MOSHER Name: GEOVANY SHAW
--- OUTSIDE RECORDS SUMMARY | 2023-03-19 10:00 | XMS_ITS | Continuity of Care Document ---
Author Name Unknown Organization [facility] Address [address], [address] [place] [address]- Care Team Providers Care Electric Powerline Examiner Name Role Phone Michael RHODES, Chitra Primary Care Physician Encounter [facility] Date(s): 08/25/22 - 09/01/22 [facility] [address], [address]th [place] [address]- Attending Physician: Delia Ortega MD Referring Physician: Mariposa Chen MD Allergies, Adverse Reactions, Alerts Substance Reaction [...] 08/04/22 14:08:00 EDT, Route to Pharmacy Electronically, [facility] #[id number], Partial fill upon patient request if the prescription i... Start Date: 08/04/22 Status: Ordered MiraLax oral powder for reconstitution = 17 Gm, By Mouth, Daily, dissolve in water before taking, # 527 Gm, 0 Refills, Maintenance, 07/21/22 12:39:00 EDT, REC Powder, [facility] #[id number], Partial fill upon patient request if the [...] 08/28/22 10:36:00 EDT, Route to Pharmacy Electronically, [facility] #[id number], Partial fill upon patient request if the prescriptio... 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 Uses Singaporean as primary spoken language Confirmed Active Vital Signs Most recent to oldest [Reference Range]: 1 Height 158 cm (08/25/22 9:21 AM) Weight 71.5 kg (08/25/22 9:21 AM) Body Mass Index [18.5-24.99 kg/m2] 28.64 kg/m2 *H* (08/25/22 9:21 AM) Blood Pressure [90-138/55-84 mm Hg] 99/5 3mm Hg (08/25/22 9:21 AM) Blood pressure sites Arm, right (08/25/22 9:21 AM) Dry Weight 71.5 kg (08/25/22 9:21 AM) Weight Obtained Via Standing scale (08/25/22 9:21 AM) Dry Weight Obtained Via Standing scale (08/25/22 9:21 AM) Social History Social History Type Response Smoking Status Former smoker, quit more than 30 days ago; Exposure to Secondhand Smoke: No; Tobacco user in household: No; Other: quit with ; entered on: 06/23/22 Sex Note * Neha Franks: PERFORM, SIGN, VERIFY Event Display: Patient Education/Instruction Authored Date: [id number] [facility] *[facility] [employer] Clinical Summary Name ANDRZEJ BRAVO Age 32 Years 1990 PCP PCP Phone Visit Date 08/25/2022 08:56:00 Additional Instructions: Scheduled Appointments?? Future Appointments ?[facility] ?[address]??[place],??[address] ?Phone:??[phone]?Fax:??-- ?Appt. Date:??09/02/2022?11:30 AM ?Scheduled Provider:??[id number] Follow-Up Instructions ?? Diagnosis state, incidental; Anemia, unspecified; Disorder of carnitine metabolism, unspecified; Maternal care for unspecified type scar from previous delivery; Herpesviral infection, unspecified; Uterine size-date discrepancy, unspecified trimester; Other specified health status Medications: Please continue your medications until treatment is completed or stopped by your provider. Discuss any questions related to medications with your provider. Medications to Continue with No Changes These medications were not printed or sent to your pharmacy Ferrous Sulfate (iron sulfate) Oral. Next Dose: Levocarnitine (levOCARNitine 330 mg oral tablet) 3 tab(s) Oral 4 times a day. with meals. Refills: 3. Next Dose: Multivitamin, (PNV ) Oral Daily. Next Dose: Polyethylene Glycol 3350 (MiraLax oral powder for reconstitution) 17 gram Oral Daily. dissolve in water before taking. Refills: 0. Next Dose: ValACYclovir (Valtrex 1 gm oral tablet) 1 tab(s) Oral twice a day for 10 Days. Refills: 0. Next Dose: ValACYclovir (Valtrex 500 mg oral tablet) 1 tab(s) Oral twice a day. Refills: 1. Next Dose: Allergy Info:?? Latex Medications Given This Visit Future Orders ?No future orders Vital Signs Height 158 cm Weight 71.5 kg BMI 28.64 kg/m2 Blood Pressure 99 mm Hg/53 mm Hg Temperature Pulse Rate Respiratory Rate 02 Sat Mode of Delivery / You can now view a summary of your hospital visit from the comfort of your home through a free online portal called [employer]. [employer] is a website that allows you to securely view your medical information including discharge summary, medications and follow-up visits. ??You can alsosend a secure electronic message to your doctor???s office to request appointments, renew medications or just ask a question. You can enroll at [email or web address] or register during your next office visit. [...] [facility] provider by calling [facility] [employer] at [phone]. For information about the plan of care [...] any education documents you were given today. * Neha Franks: PERFORM, SIGN, VERIFY Event Display: Patient Education/Instruction Authored Date: [id number] [facility] *[facility] MANA[facility] [employer]S Clinical Summary Name ANDRZEJ BRAVO Age 32 Years 1990 PCP PCP Phone Visit Date 08/25/2022 08:56:00 Additional Instructions: Scheduled Appointments?? Future Appointments ?[facility] ?[address]??[place],??[place],??[address] ?Phone:??[phone]?Fax:??-- ?Appt. Date:??09/02/2022?11:30 AM ?Scheduled Provider:??[id number] Follow-Up Instructions ?? Diagnosis state, incidental; Anemia, unspecified; Disorder of carnitine metabolism, unspecified; Maternal care for unspecified type scar from previous delivery; Herpesviral infection, unspecified; Uterine size-date discrepancy, unspecified trimester; Other specified health status Medications: Please continue your medications until treatment is completed or stopped by your provider. Discuss any questions related to medications with your provider. Medications to Continue with No Changes These medications were not printed or sent to your pharmacy Ferrous Sulfate (iron sulfate) Oral. Next Dose: Levocarnitine (levOCARNitine 330 mg oral tablet) 3 tab(s) Oral 4 times a day. with meals. Refills: 3. Next Dose: Multivitamin, (PNV ) Oral Daily. Next Dose: Polyethylene Glycol 3350 (MiraLax oral powder for reconstitution) 17 gram Oral Daily. dissolve in water before taking. Refills: 0. Next Dose: ValACYclovir (Valtrex 1 gm oral tablet) 1 tab(s) Oral twice a day for 10 Days. Refills: 0. Next Dose: ValACYclovir (Valtrex 500 mg oral tablet) 1 tab(s) Oral twice a day. Refills: 1. Next Dose: Allergy Info:?? Latex Medications Given This Visit Future Orders ?No future orders Vital Signs Height 158 cm Weight 71.5 kg BMI 28.64 kg/m2 Blood Pressure 99 mm Hg/53 mm Hg Temperature Pulse Rate Respiratory Rate 02 Sat Mode of Delivery / You can now view a summary of your hospital visit from the comfort of your home through a free online portal called [employer]. [employer] is a website that allows you to securely view your medical information including discharge summary, medications and follow-up visits. ??You can alsosend a secure electronic message to your doctor???s office to request appointments, renew medications or just ask a question. You can enroll at [email or web address] or register during your next office visit. [...] [facility] provider by calling [facility] [employer] at [phone]. For information about the plan of care [...] Persons Name: LUC BONDS Address: [address] [address] Name: MENA MOSHER Address: [address] [place] [address] Name: CAROL ANN CROCKETT Address: home [address] [place] [id number] Name: GEOVANY SHAW
--- OUTSIDE RECORDS SUMMARY | 2023-03-19 10:00 | XMS_ITS | Continuity of Care Document ---
Author Name Unknown Organization [facility] ter Address [address] [place] [id number] Care Team Providers Care Sql Dba Name Role Phone Chitra Rodriguez MD Primary Care Physician Encounter [facility] Date(s): 09/02/22 - 09/05/[address] [id number] Discharge Disposition: A-D/C Home Attending Physician: Shady RHODES [OB], Adeline Angulo Admitting Physician: Shady RHODES [OB], Adeline Angulo Referring Physician: Shady RHODES [OB]Adeline Allergies, Adverse Reactions, Alerts Substance Reaction Severity [...] 0 Refills, Maintenance, 09/04/22 8:30:00 EDT, Tablet, [facility][id number], Partial fill upon patient request if the pr... Start Date: 09/04/22 Status: Ordered Acetaminophen Tablet 650 mg, Tablet, By Mouth, (1-3), may give 325mg per patient preference and re- dose with 325mg within 4 hours if needed. Patient should only receive a total of 650mg of Acetaminophen every 4 hours., 09/05/22 11:00:00 EDT Start Date: 09/05/22 Stop Date: 09/05/22 Status: Completed ibuprofen 600 mg oral tablet 600 mg, 1, tablet, By Mouth, 4 times a day, PRN, , 90 day supply not indicated., # 120 tablet, Refills 0, Tot. Refills 0, Maintenance, for pain, 09/04/22 8:30:00 EDT, Route to Pharmacy Electronically, [facility] #[id number], Partial lindy... Start Date: 09/04/22 Status: Ordered [...] 08/04/22 14:08:00 EDT, Route to Pharmacy Electronically, [facility] #[id number], Partial fill upon patient request if the prescription i... Start Date: 08/04/22 Status: Ordered MiraLax oral powder for reconstitution = 17 Gm, By Mouth, Daily, dissolve in water before taking; , 90 day supply not indicated., # 255 Gm, 0 Refills, Maintenance, 09/04/22 8:30:00 EDT, REC Powder, [facility] #[id number], Partial fill upon patient request if the prescription... Start Date: 09/04/22 Status: Ordered MiraLax oral powder for reconstitution = 17 Gm, By Mouth, Daily, dissolve in water before taking, # 527 Gm, 0 Refills, Maintenance, 07/21/22 12:39:00 EDT, REC Powder, [facility] #[id number], Partial fill upon patient request if the prescription is for a schedule II opioid drug., 17 Gm... Start Date: 07/21/22 Status: Ordered oxyCODONE 5 mg oral tablet 5 mg, 1, tablet, By Mouth, Every 6 hours, PRN, , 90 day supply not indicated., # 10 tablet, Refills 0, Tot. Refills 0, Maintenance, for pain, 09/04/22 8:30:00 EDT, Route to Pharmacy Electronically, [facility] #[id number], Partial fill u... Start Date: 09/04/22 Status: Ordered OxyCODONE IR Tablet 5 mg, Tablet, By Mouth, Every 3 hours, PRN for Pain , Severe, (7-10), Routine, 09/03/22 17:35:00 EDT Start Date: 09/03/22 Stop Date: 09/05/22 Status: Discontinued PNV By Mouth, Daily, 0 Refills, Maintenance, 06/23/22 10:29:00 EDT, Partial fill upon patient request if the prescription is for a schedule II opioid drug. Start Date: 06/23/22 Status: Ordered senna - oral tablet 2 tablet, By Mouth, Daily at bedtime, PRN for constipation, , 90 day supply not indicated., # 60 tablet, 0 Refills, Maintenance, 09/04/22 8:30:00 EDT, Tablet, [facility] #[id number], Partial fill upon patient request if the prescription... Start Date: 09/04/22 Status: Ordered Valtrex 500 mg oral tablet 500 mg, 1, tablet, By Mouth, 2 times a day, # 30 tablet, Refills 1, Tot. Refills 1, Acute 10/19/22 10:42:00 EDT, 08/28/22 10:36:00 EDT, Route to Pharmacy Electronically, [facility] #[id number], Partial fill upon patient request if the prescriptio... 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 Uses Belarusian as primary spoken language Confirmed Active Procedures Procedure Date Related Diagnosis Body Site Status delivery only; 09/02/22 C ompleted Vital Signs Most recent to oldest [Reference Range]: 1 2 3 Height 158 cm (09/05/22 8:00 AM) 158 cm (09/05/22 12:00 AM) 158 cm (09/04/22 4:13 PM) Weight 71 kg (09/02/22 11:00 AM) 71 kg (09/02/22 10:16 AM) Oxygen Saturation [94-100 %] 97 % (09/05/22 8:00 AM) 100 % (09/05/22 12:00 AM) 100 % (09/04/22 4:13 PM) Pulse Rate [55-90 bpm] 90 bpm (09/05/22 8:00 AM) 95 bpm *H* (09/05/22 12:00 AM) 85 bpm (09/04/22 4:13 PM) Body Mass Index [18.5-24.99 kg/m2] 28.44 kg/m2 *H* (09/02/22 10:16 AM) Blood Pressure [90-138/55-84 mm Hg] 105/58mm Hg (09/05/22 8:00 AM) 111/58mm Hg (09/05/22 12:00 AM) 110/56mm Hg (09/04/22 4:13 PM) Respiratory Rate [16-30 br/min] 18 br/min (09/05/22 11:03 AM) 18 br/min (09/05/22 11:03 AM) 18 br/min (09/05/22 10:03 AM) Temperature [96.8-100.4 DegF] 97.9 DegF (09/05/22 8:00 AM) 98.0 DegF (09/05/22 12:00 AM) 99.1 DegF (09/04/22 4:13 PM) Mode of Delivery (Oxygen) Room air (09/05/22 8:00 AM) Room air (09/05/22 12:00 AM) Room air (09/04/22 12:08 AM) Blood pressure sites Arm, right (09/05/22 8:00 AM) Arm, right (09/05/22 12:00 AM) Arm, right (09/04/22 12:08 AM) Temperature Route Oral (09/05/22 8:00 AM) Oral (09/05/22 12:00 AM) Oral (09/04/22 4:13 PM) Dry Weight 71 kg (09/02/22 10:16 AM) Social History Social History Type Response Smoking Status Former smoker, quit more than 30 days ago; Exposure to Secondhand Smoke: No; Tobacco user in household: No; Other: quit with ; entered on: 06/23/22 Sex History and physical note * Yane Velasquez MD: PERFORM Event Display: History and Physical Hospital Authored Date: [id number] Patient: ??LUCRECIA BRAVO ? Age:??32 Years?Sex:??Female?:??1990?? OB Reason for Admission OB Reason for Admission Reason for admission: Repeat Reason for Planned : Elective repeat LMP/EGA/STACY Gestational Age (EGA) and STACY? * Note: EGA calculated as of 09/02/2022 ?? STACY:??09/06/2022?EGA*:??39 weeks 3 days ? History?(1,0,0,1)?Method:??Last Menstrual Period??(11/28/2021) History of Present Illness Lucrecia is a 32 yo at 39+2 presenting for scheduled repeat delivery and bilateral salpingectomy. Today she feels well. No contractions, bleeding, or leaking of fluid. Last PO intake 8 am. Physical Exam Vitals & Measurements T:??98.3?F?? HR:??55??(Peripheral)?? RR:??18?? BP:??127/64?? HT:??158??cm?? WT:??71??kg?? BMI:??28.44?? Constitutional:??No acute distress, resting comfortably. Respiratory:??Normal work of breathing. Lungs clear to auscultation bilaterally. Cardiovascular:??Regular rate and rhythm, no murmurs.? Abdomen/GI:??Gravid uterus. Soft, nontender. Extremities:??No calf tenderness or edema. Skin:??No rash or jaundice. Neurological/Psychiatric:??Mood and affect congruent and stable. OB Assessment Reassuring FH on bedside doppler Assessment/Plan Assessment:??Lucrecia is a 32 yo at 39+2 presenting for scheduled repeat delivery and bilateral salpingectomy. ?? section consent signed with patient. Risks of procedure discussed, including bleeding, infection, damage to surrounding structures (fallopian tubes, ovaries, bladder, bowel, blood vessels). Patient accepts these risks. She will accept a blood transfusion in the event of significant blood loss. ?? Discussed that given last PO intake was this morning her delivery will be delayed until 4 pm this afternoon. ?? Anemia (D64.9):? Admission??hgb 10.3 ?? 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 She was not found tohave the gene, but did have deficiency on multiple testing. She was treated with carnitine for a while but was lost to follow up Asymptomatic Restarted supplement at genetics recommendations: - oral levocarnitine (L-carnitine) supplementation. 100 mg/kg/day, divided in 3 doses. ?? 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 History of delivery affecting (O34.219):? Planned RCS and bilateral salpingectomy Placenta posterior 2 grams ancef Proceed to OR ?? Uses Belarusian as primary spoken language (Z78.9):? sole polisher to be used for this encounter ? History and plan reviewed with Dr. Caruso. OB History History?(1,0,0,1)? # 1 ?Baby 1 ?Outcome Date:??01/20/2015?Outcome or Result:?Gest Age:??41 weeks ? Outcome:??Live ? Sex:??Male?Wt:?3515 g ?Comment:??failure to progress Labs Labs Labs & Tests ABO: A (08/25/22) Antibody Screen: Negative (09/01/22) Blood Type: A Positive (09/01/22) Creatinine-Blood:??0.4 mg/dL??Low (07/07/22) Glucose 50 Gm, +60 Minutes: 120 mg/dL (07/17/22) Hct:??31.8 %??Low (09/02/22) Hemoglobinopathy Interpretation: Normal hemoglobins, with anemia. (07/17/22) Hgb:??10.3 Gm/dL??Low (09/02/22) RH Test Only: Positive (08/25/22) RPR Titer Result: NOT INDICATED (07/17/22) Syphilis Screen by SHARON: NEGATIVE (07/17/22) Transcribed Labs Amphetamine Urine Screen-Transcribed: Negative (02/26/22) Antibody Screen-Transcribed Result: Negative (02/26/22) Barbiturate Urine Screen-Transcribed: Negative (02/26/22) Benzodiazepine Urine Screen-Transcribed: Negative (02/26/22) Blood Type-Transcribed Result: A (02/26/22) Cannabinoid Urine Screen-Transcribed: Positive (02/26/22) Chlamydia-Transcribed Result: Negative (02/28/22) Cocaine Urine Screen-Transcribed ??Result: Negative (02/26/22) Fentanyl Urine-Transcribed Result: Negative (02/26/22) Gonorrhea-Transcribed Result: Negative (02/28/22) Hematocrit-Transcribed Result: 35 (02/26/22) Hemoglobin-Transcribed Result: 11.3 (02/26/22) Hep B Surface Antigen-Transcribed Result: Negative (02/26/22) HIV-Transcribed Result: Negative (02/26/22) Opiate Screen Urine-Transcribed Result: Negative (02/26/22) Oxycodone Screen Urine-Transcribed: Negative (02/26/22) Platelet-Transcribed Result: 221 (02/26/22) Rh-Transcribed Result: Positive (02/26/22) Rubella IgG -Transcribed Result: Positive (02/26/22) Syphilis screen-Transcribed Result: Negative (02/26/22) Varicella-Transcribed Result: Negative (02/26/22) Problem List Active Active Problem List Anemia: (Medical) Carnitine degeneration: (Medical) History of delivery affecting : (Medical) History of HPV infection: (Medical) HSV-2 infection: (Medical) : (Obstetric) (11/28/21) Size of fetus inconsistent with dates, antepartum: (Medical) Uses Belarusian as primary spoken language: (Medical) Procedure/Surgical History section: 01/1899 Jaw Home Medications Ferrous Sulfate: By Mouth Levocarnitine: 990 mg = 3 tablet, By Mouth, 4 times a day, with meals Multivitamin, : By Mouth, Daily Polyethylene Glycol 3350: 17 Gm, By Mouth, Daily, dissolve in water before taking ValACYclovir: 500 mg = 1 tablet, By Mouth, 2 times a day Allergies Latex Social History Alcohol Use: Past. Frequency: 1-2 times per week. Alcohol use in household: No. Other: occasional use on weekends prior to . Electronic Cigarette/Vaping Electronic Cigarette Use: Never. 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 Other: Works for [employer]. Exercise Self assessment: Good condition. Home/Environment Living situation: Home/Independent. Lives with: Children, Spouse, no pets. Nutrition/Health Diet: Regular. Sexual Sexually involved in last 6 months: Yes. Gender identity: Identifies as female. Self described orientation: Straight or heterosexual. Preferred pronoun: She/her. Substance Abuse Substance abuse in household: No. Tobacco Use: Former smoker, quit more than 30 days ago. Other: quit with . Exposure to Secondhand Smoke: No. Tobacco user in household: No. Family History Mother: Arthritis; Cancer; Cancer of ovary; Depression; High blood pressure ? 2015 23:30:17<$> Father: Cancer Mat. Grandmother: Alzheimer's disease Sister: Asthma Plan No Data Found * Shady RHODES [OB], Adeline Angulo: PERFORM Event Display: History and Physical Hospital Authored Date: ?Attending Attestation:??I have seen and evaluated this patient. ??I have discussed the caseand its management with the resident and agree with the findings and plan as documented above in the resident???s note. ?Pt ate breakfast, case delayed into afternoon. Hospital Progress note * Susan Tracy RN: PERFORM, SIGN, VERIFY Event Display: Progress Note Hospital Authored Date: [id number] Patient: LUCRECIA BRAVO Age: 32 years Sex: Female : 1990 Associated Diagnoses: None Author: Susan Tracy RN Patient discharged home. Discharge instructions given, patient verbalized understanding. * Susan Tracy RN: PERFORM, SIGN, VERIFY Event Display: Progress Note Hospital Authored Date: Patient: LUCRECIA BRAVO Age: 32 years Sex: Female : 1990 Associated Diagnoses: None Author: Susan Tracy RN Patient 3 days s/p c/s. Abdomen soft. Patient voiding, passing gas, no BM yet. Fundus firm, -1. Mild flow. Incision well approximated, no drainage noted, steri strips in place. Anticipating d/c Findings Problem Related to Alteration in Comfort : Alteration in Comfort/new 09/05/2022 10:00 EDT Alteration in Comfort Related to Surgery, Other: pp c/s Goals & Outcomes: Comfort Pt will report acceptable level of comfort & pain control Interventions Implemented: Comfort Assess pain using appropriate pain scale/tools, Assess aggravating factors & prevent them accordingly, Assess alleviating factors & promote them accordingly Goals/Interventions, Comfort Yes Comfort, Problem Start 09/02/2022 19:46 Reviewed plan with, Comfort Patient Patient Progression, Comfort Pt progressing according to plan Comfort, Problem Ongoing Yes . * Yenni Dolan RN: PERFORM, SIGN, VERIFY Event Display: Progress Note Hospital Authored Date: Patient: LUCRECIA BRAVO Age: 32 years Sex: Female : 1990 Associated Diagnoses: None Author: Yenni Dolan RN Pt alert and oriented x3, VSS, and resting comfortably. Pt OOB and ambulating independently in room. Incision is well approximated, clean, dry, and intact. Fundus is -1 with mild lochia rubra. Abdomen is soft, non distended. Pt is responding appropriately to medication as needed. Pt is voiding independently and /formula feeding with no difficulties. FOB in room providing supportive care to pt and baby. Call choudhury within reach. Findings Problem Related to Alteration in Comfort : Alteration in Comfort/new 09/04/2022 19:00 EDT Alteration in Comfort Related to Surgery, Other: pp c/s Goals & Outcomes: Comfort Pt will report acceptable level of comfort & pain control Interventions Implemented: Comfort Assess pain using appropriate pain scale/tools Goals/Interventions, Comfort Yes Comfort, Problem Start 09/02/2022 19:46 Reviewed plan with, Comfort Patient Patient Progression, Comfort Pt progressing according to plan Comfort, Problem Ongoing Yes . Note * Emma Pacheco: PERFORM Event Display: Care Team Progress Note Authored Date: [id number] Patient: ??LUCRECIA BRAVO ? Age:??32 Years?Sex:??Female?:??1990?? Subjective cart ??2 assessment for assistance Patient??some previous experience Patient used shield with first baby Feeding sheet?? adequately filled out Patient?? obtained personal pump Belarusian Speaking only Assessment/Plan Used Language Line for interpretation. Lucrecia reports that she nursed the baby every 2-3 hours throughout the night and the baby has been doing well. She is using the shield which she has experienceusing from her first child. She was not as successful with her first baby and is hoping to breastfeed longer with this child. She is feeling discouraged that she seems to get less colostrum with pumping than she did the first time pumping. Education on how milk changes and that stimulation is the most important thing- adding HE to pumping can help yield more volume . Lucrecia says that she can feel some tingling and such in her breasts like she did and is feeling like it might be the start of milk coming. Encouragement to trust the process and keep stimulating and using the shield. Discussed how to transition off the shield over time. Once milk is in and baby latches- shield can be removed mid feeding and attempts without shield should be made. Follow up care with to help transition off shield over time. As long as shield is being used- pumping for increased stimulation should be 3x per day. discharge plan today- ensured family has contact information and known supports available. OB Summary : 2 Parity: 1 . Baby A - Weight: 2.774 kg Baby A - Date, Time of : 09/02/22 16:51:00 Baby A - Gender: Female Baby A - Complications: None EGA at Documented Date, Time: 39W 3D Weight at Delivery Baby A - Delivery Type: , low transverse OB History History?(1,0,0,1)? # 1 ?Baby 1 ?Outcome Date:??01/20/2015?Outcome or Result:?Gest Age:??41 weeks ? Outcome:??Live ? Sex:??Male?Wt:?3515 g ?Comment:??failure to progress Active Problem List Active Problem List Anemia: (Medical) Carnitine degeneration: (Medical) History of delivery affecting : (Medical) History of HPV infection: (Medical) HSV-2 infection: (Medical) : (Obstetric) (11/28/21) Size of fetus inconsistent with dates, antepartum: (Medical) Uses Belarusian as primary spoken language: (Medical) Home Medications Acetaminophen: 1,000 mg = 2 tablet, By Mouth, Every 6 hours, PRN (as needed for pain), , 90 day supply not indicated. Ferrous Sulfate: By Mouth Ibuprofen: 600 mg = 1 tablet, By Mouth, 4 times a day, PRN (for pain), , 90 day supply not indicated. Levocarnitine: 990 mg = 3 tablet, By Mouth, 4 times a day, with meals Multivitamin, : By Mouth, Daily Oxycodone: 5 mg = 1 tablet, By Mouth, Every 6 hours, PRN (for pain), , 90 day supply not indicated. Polyethylene Glycol 3350: 17 Gm, By Mouth, Daily, dissolve in water before taking Polyethylene Glycol 3350: 17 Gm, By Mouth, Daily, dissolve in water before taking; , 90 day supply not indicated. Senna: 2 tablet, By Mouth, Daily at bedtime, PRN (for constipation), , 90 day supply not indicated. ValACYclovir: 500 mg = 1 tablet, By Mouth, 2 times a day Medications Medications (22) Active SCHEDULED: (12) Acetaminophen 325 mg Tablet (Acetaminophen Tablet) ??650 mg, By Mouth, Every 4 hours Docusate Sodium 100 mg Capsule (Docusate Sodium Capsule) ??100 mg 1 capsule, By Mouth, 2 times a day Enoxaparin 40 mg Inj (Enoxaparin Inj) ??40 mg 0.4 mL, Subcutaneous Injection, Every 24 hours Etonogestrel 68 mg Implant (Nexplanon 68mg SQ Implant) ??68 mg 1 each, Intradermal, side framer to Procedure Famotidine 20 mg Tablet (Famotidine Tablet) ??20 mg, By Mouth, 2 times a day Ferrous Sulfate 325 mg EC Tablet (ferrous sulfate 325 mg oral enteric coated tablet) ??325 mg, By Mouth, Daily Ibuprofen 800 mg Tablet (Ibuprofen Tablet) ??800 mg, By Mouth, Every 8 hours Levocarnitine 330 mg Tablet (levOCARNitine 330 mg oral tablet) ??990 mg, By Mouth, 4 times a day Lidocaine 5% Topical Patch (Lidocaine 5% Patch) ??2 each, Topically, Daily Multivitamin Tablet ( Multivitamin Tablet) ??1 tablet, By Mouth, Daily Remove Patch (Remove Lidocaine Patch) ??2 each, Topically, Daily at bedtime ValACYclovir 500 mg Tablet (Valtrex 500 mg oral tablet) ??500 mg, By Mouth, 2 times a day CONTINUOUS: (1) Lactated Ringers (1000 mL) Cont IV 1,000 mL (Lactated Ringers 1,000 mL) ??1,000 mL, IV Infusion, 125 mL/hr PRN: (9) diphenhydrAMINE 25 mg Tablet (DiphenhydrAMINE Tablet) ??25 mg, By Mouth, Every 4 hours diphenhydrAMINE 50 mg/mL Inj (DiphenhydrAMINE Inj) ??25 mg 0.5 mL, IV Push, Once FENTanyl 50 mcg/mL Inj (2 mL) (FENTanyl Inj) ??25 mcg 0.5 mL, IV Push, Every 5 minutes Metoclopramide 5 mg/mL Inj (2 mL) (Metoclopramide Inj) ??10 mg, IV Push, Every 6 hours nalOXONE ??400mcg/mL Inj (nalOXONE Inj) ??0.1 mg 0.25 mL, IV Push Slowly, Every 15 minutes Ondansetron 2mg/mL Inj (2mL Vial) (Ondansetron Inj) ??4 mg, IV Push, Once OxyCODONE 5 mg IR Tablet (OxyCODONE IR Tablet) ??5 mg, By Mouth, Every 3 hours Polyethylene Glycol 17 Gm Powder (Polyethylene Glycol Powder) ??8.5 Gm 0.5 pack/packet, By Mouth, Daily Simethicone 80 mg Chewable Tablet (Simethicone Tablet) ??80 mg, Chew, 3 times a day * Susan Tracy RN: PERFORM Event Display: Discharge/Transfer Note Hospital Authored Date: [id number] Nursing Discharge Note Entered On: 09/05/2022 13:34 EDT Performed On: 09/05/2022 13:34 EDT by Susan Tracy RN Nursing Discharge Note 2 Discharge Time : 09/05/2022 13:20 EDT Discharge Level of Care at Discharge : Home/Longterm/Foster Care Patient Left Unit Via : Ambulatory Patient Accompanied Off Unit with : Significant other DC Instructions Provided & Signed by Pt : Yes Patient Understands D/C Instructions : Yes Verbalized Understanding of D/C Plan By : Patient Patient Instructions Discharge Signed : Yes Did Pt have Specialty Bed or Wound Vac : No Susan Tracy RN - 09/05/2022 13:34 EDT * Yane Velasquez MD: PERFORM, MODIFY Event Display: Discharge/Transfer Note Hospital Authored Date: [id number] Patient: ??LUCRECIA BRAVO ? Age:??32 Years?Sex:??Female?:??1990?? Admit Date Admission Date: 09/02/2022 Discharge Date 09/05/2022 OB Reason for Admission OB Reason for Admission Reason for admission: Repeat Reason for Planned : [facility] Course Lucrecia is a 32 yo G2 now P2 s/p??scheduled repeat delivery on 09/02. Her delivery and course were uncomplicated. ?? Patient is feeling well and would like to be discharged today. States her pain is well controlled with routine medications. Her lochia is light. She is ambulating, voiding spontaneously s/p [place], tolerating regular diet and passing flatus. She has no concerns at this time. ?? Discussed self care, and depression. Patient was counseled on warning signs for calling or returning to care including but not limited to fever of 100.4 or greater, heavy vaginal bleeding, foul-smelling vaginal discharge, difficulty or burning with urination, nausea and vomiting with inability to tolerate food, pain not controlled by medications, shortness of breath or chest pain, and depression. Counseled to place nothing in the vagina in the next 4-6wks. Patient verbalized understanding.?? Objective/Physical Exam on Day of Discharge Vitals & Measurements T:??98.0?F?? HR:??95??(Peripheral)?? RR:??18?? BP:??111/58?? SpO2:??100%?? HT:??158??cm?? WT:??71??kg?? BMI:??28.44?? Constitutional: No acute distress, resting comfortably. Respiratory: Normal work of breathing. Abdomen/GI: Soft, non-distended, no guarding, no rebound tenderness. Fundus firm at umbilicus with mild tenderness. Low transverse incision covered with steri strips, appears clean, dry and intact. Gynecologic: Minimal lochia. Extremities: No calf tenderness or edema. Skin: No rash or jaundice. Neurological/Psychiatric: Mood and affect congruent and stable. Assessment/Plan/Discharge Diagnosis Assessment:??Lucrecia is a 32 yo G2 now P2 s/p??scheduled repeat delivery 09/02. She is meeting post-op milestones. Lidocaine patch ordered for pain at right side of incision. Appropriate for discharge at this time, pending nexplanon placement. ?? 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 Asymptomatic - oral levocarnitine (L-carnitine) supplementation. 100 mg/kg/day, divided in 3 doses. ?? 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 examination following delivery (Z39.2):? Continue routine & postoperative care Pain Management: continue Ibuprofen & Tylenol, oxy as needed (x) Rx on discharge Incision: appears well healing Infant feeding: Breast and formula [place]: removed, voiding spontaneously VTE prophylaxis: SCDs while in bed, encourage ambulation Contraception: Nexplanon ( ) ?? hemorrhage (O72.1):? QBL 1347 Hgb stable Lovenox while in-patient for VTE prophylaxis ?? Uses Belarusian as primary spoken language (Z78.9):? sole polisher to be used for this encounter ?? Delivery Summary Delivery Summary Maternal Information ??Delivery Information ?Gestational Age at Delivery: ??39W 3D ?Blood Loss - Quantitative: ??1347 mL ? Baby A ??Delivery Information ?Delivery Type: ??, low transverse ?Reason for : ??Elective repeat ?Date, Time of : ??09/02/22 16:51:00 ?Delayed Cord Clamping: ??Yes ?Placenta Delivery Date/Time: ??09/02/22 16:53:00 ?Placenta Delivery Method: ??Assisted ?Placenta Appearance: ??Normal ??Labor Information ?3rd Stage, Length of Labor: ??2 min ? monitoring: ??Handheld Doppler ?? Information ? Outcome: ??Live ? Weight: ??2.774 kg ? Score 1 minute: ??8 ? Score 5 minute: ??9 ? Score 10 minute: ??9 ?Transferred To: ?? Care area with Family ?Umbilical Cord Description: ??3 vessel cord, Nuchal cord ?Nuchal cord times: ??1 ?Nuchal cord tension: ??Loose ?Gender: ??Female ? Discharge Medications ???Acetaminophen (acetaminophen 500 mg oral tablet)???Ferrous Sulfate (iron sulfate)???Ibuprofen (ibuprofen 600 mg oral tablet)???Levocarnitine (levOCARNitine 330 mg oral tablet)???Multivitamin, (PNV )???Oxycodone (oxyCODONE 5 mg oral tablet)???Polyethylene Glycol 3350 (MiraLax oral powder for reconstitution)???Polyethylene Glycol 3350 (MiraLax oral powder for reconstitution)???Senna (senna - oral tablet)???ValACYclovir (Valtrex 500 mg oral tablet) Immunizations during Hospitalization Vaccine Date Status tetanus/diphtheria/pertussis, acel(Tdap) 07/17/2022 Given tetanus/diphtheria/pertussis, acel(Tdap) 03/06/2021 Recorded tetanus/diphtheria/pertussis, acel(Tdap) 02/05/2017 Recorded influenza virus vaccine, inactivated 10/16/2016 Recorded Feeding Method Feeding Method: , Formula (09/02/22 17:50:00) Patient Instructions Discharge:??Home ?? Please call the office with any concerns including:?? Heavy vaginal bleeding?? Fever of 100.4 or greater Foul-smelling vaginal discharge Difficulty or burning with urination Nausea and vomiting with inability to tolerate food Pain not controlled by the medications listed below Shortness of breath or chest pain. Swelling of the extremities. ?? General Instructions: - Avoid lifting anything 15 lbs or greater until cleared by doctor. - Limit stairs to once per day the first day. - Stairs are OK but avoid multiple trips/ skipping steps and go slowly. - Walk as often as you are able. - Do not put anything in the vagina. No intercourse, tampons, or douching - Continue using stool softeners as needed??(examples: colace/docusate, senna, miralax) - Shower as usual, do NOT scrub incision. Avoid tubs / soaking / pools. - Remove steri strips 5-7 days after surgery if they have not fallen off on their own. ?? Pain Control Instructions: Continue Tylenol and ibuprofen scheduled and only take opiates as prescribed??for breakthrough painin the first few days after you get home.??You may fill less than the prescribed amount, and you should store them in a safe location in a childproof prescription bottle.??Any unused opiates should be returned to a prescription drop-box, such as the one at the [facility]. No one other than you should take your opiates, and you should not use them for anything other than your postoperative pain. You should not drive while taking opiates. ?? Please call the office with pain that is not controlled with this regimen. ?? Thank you for allowing us to be part of your care team. * Gloria RHODES, Claudine Valverde: PERFORM Event Display: Discharge/Transfer Note Hospital Authored Date: ?Attending Attestation:??I have seen and evaluated this patient. ??I have discussed the caseand its management with ??Ron and agree with the findings and plan as documented in the note below. OK for discharge today. * Rossana CHAND, Susan: PERFORM Event Display: Patient Education/Instruction Authored Date: Inpatient Adult Discharge Instructions [address] [address] Name: LUCRECIA MOSHER : 1990 Visit: 09/02/2022 10:16:00 Current Date: 09/05/2022 11:39 Account: [id number] Inpatient Adult Discharge Instructions We would like to thank you for allowing us to assist you with your healthcare needs. The following includes patient education materials and information regarding your injury/illness. Our entire staffstrives to provide an excellent experience for our patients and their families. PLEASE ENSURE YOU FOLLOW-UP PER THE INSTRUCTIONS BELOW! ?? YOUR OPINION IS IMPORTANT TO US! Please complete the survey you may receive by mail or email. Your feedback will be used to make improvements to the healthcare experiences of our patients and their families. Surveys are administered by [employer] ?? If further treatment with your primary care physician or another doctor is recommended, it is important for you to keep the appointment. Call your primary care physician or return to the Emergency Department immediately if your condition worsens, fails to improve, or new symptoms develop. If you need to find a doctor, you can call [facility] [employer] for a referral at [phone] or toll free at [phone] or log in to [email or web address].. ?? You can view and manage your care through the patient portal or by using a health care kayleigh of your choosing. [employer] is a website that allows you to securely view your medical information including your hospital discharge summary, office visit summaries, medications and follow-up visits. You can also request appointments, renew medications, and request access to your medical information using a health care kayleigh of your choosing, or just ask a question. You can enroll at [email or web address] or register during your next office visit. You have been discharged from [facility], Patient Care Unit: WIN[facility]. If you have any questions regarding these instructions after you leave, please call us and we will be happy to assist you. [facility] Your Care Team Attending Physician Shady RHODES [OB], Adeline Medina MD, Art Discharging Providers RonYane miner MD Reason for Admission Repeat Your Diagnosis HSV-2 infection Anemia Carnitine deficiency History of delivery affecting Uses Belarusian as primary spoken language hemorrhage examination following delivery Tests Performed Below is a partial list of the tests performed during your hospitalization. You may have had other tests and procedures not included in this list. Please discuss all test results with your provider. CBC Advance Directive Health Care Proxy on File Yes - Health Care Proxy Discharge Vitals Temperature: 97.9 DegF Height: 158 cm Pulse Rate: 90 bpm Weight: 71 kg Respiratory Rate: 18 br/min Body Mass Index:??28.44 kg/m2??High Respiratory Rate: 18 br/min Body surface area: 1.77 Systolic Blood Pressure: 105 mm Hg ?? Diastolic Blood Pressure: 58 mm Hg ?? Oxygen Saturation: 97 % ?? Studies Pending All tests and labs ordered during this hospital stay have been completed unless listed below. Please discuss all pending results with your provider listed above in these instructions. ?? COVID-19 (2019 Novel Coronavirus) PCR What to do next Instructions From Your Doctor Discharge:??Home ?? Please call the office with any concerns including:?? Heavy vaginal bleeding?? Fever of 100.4 or greater Foul-smelling vaginal discharge Difficulty or burning with urination Nausea and vomiting with inability to tolerate food Pain not controlled by the medications listed below Shortness of breath or chest pain. Swelling of the extremities. ?? General Instructions: - Avoid lifting anything 15 lbs or greater until cleared by doctor. - Limit stairs to once per day the first day. - Stairs are OK but avoid multiple trips/ skipping steps and go slowly. - Walk as often as you are able. - Do not put anything in the vagina. No intercourse, tampons, or douching - Continue using stool softeners as needed??(examples: colace/docusate, senna, miralax) - Shower as usual, do NOT scrub incision. Avoid tubs / soaking / pools. - Remove steri strips 5-7 days after surgery if they have not fallen off on their own. ?? Pain Control Instructions: Continue Tylenol and ibuprofen scheduled and only take opiates as prescribed??for breakthrough painin the first few days after you get home.??You may fill less than the prescribed amount, and you should store them in a safe location in a childproof prescription bottle.??Any unused opiates should be returned to a prescription drop-box, such as the one at the [facility]. No one other than you should take your opiates, and you should not use them for anything other than your postoperative pain. You should not drive while taking opiates. ?? Please call the office with pain that is not controlled with this regimen. ?? Thank you for allowing us to be part of your care team. Discharge Orders You Need to Schedule the Following Appointments Follow Up with??[facility] [phone] Why: Please, call and schedule f/u appointment in 4-6 weeks Discharge Medications LUCRECIA BRAVO :1990 Visit Date:09/02/2022 Medications: Please continue your medications until treatment is completed or stopped by your provider. Medications not listed below should be discontinued. Discuss any questions related to medications with your provider. What How Much When Why Instructions Next Dose New Acetaminophen (acetaminophen 500 mg oral tablet) 2 tab(s) Oral Every 6 hours as needed for as needed for pain , 90 day supply not indicated. ?? Pickup at [facility] #[id number] today 4pm New Ibuprofen (ibuprofen 600 mg oral tablet) 1 tab(s) Oral 4 times a day as needed for for pain , 90 day supply not indicated. ?? Pickup at [facility] #[id number] today 4pm New Oxycodone (oxyCODONE 5 mg oral tablet) 1 tab(s) Oral Every 6 hours as needed for for pain , 90 day supply not indicated. ?? Pickup at [facility] #[id number] today 4pm New Senna (senna - oral tablet) 2 tab(s) Oral Daily at Bedtime as needed for for constipation , 90 day supply not indicated. ?? Pickup at [facility] #[id number] today 9pm Changed Polyethylene Glycol 3350 (MiraLax oral powder for reconstitution) 17 gram Oral Daily dissolve in water before taking ?? Changed Polyethylene Glycol 3350 (MiraLax oral powder for reconstitution) 17 gram Oral Daily dissolve in water before taking; , 90 day supply not indicated. ?? Pickup at [facility] #[id number] tomorrow 9am Unchanged Ferrous Sulfate (iron sulfate) Oral Unchanged Levocarnitine (levOCARNitine 330 mg oral tablet) 3 tab(s) Oral 4 times a day Carnitine deficiency with meals ?? Unchanged Multivitamin, (PNV ) Oral Daily Unchanged ValACYclovir (Valtrex 500 mg oral tablet) 1 tab(s) Oral Twice a day Pharmacy Information [id number]: [address] [place], [place] [id number] [phone] Test Results Below is a partial list of the most recent Laboratory test results done prior to this discharge. You may have had other tests and procedures not included in this list. Please discuss all test resultswith your provider. CBC (09/02/2022) ???WBC - 10.0 k/mm3???RBC - 3.14 m/mm3???Hgb - 9.1 Gm/dL???Hct - 28.7 %???MCV - 91.4 femtoliters???MCH - 29.0 pg???MCHC - 31.7 g/dL???Platelet Count - 190 k/mm3???RDW-SD - 47.2 femtoliters???MPV - 11.2 femtoliters???Nucleated RBC (Automated) - 0.0 #/100 WBC'S???Abs. NRBC - 0.0 k/mm3 Allergies (NKA means No Known Allergies) Latex Problems Active Problems??(8) Anemia?? Carnitine degeneration?? History of delivery affecting ?? History of HPV infection?? HSV-2 infection? Size of fetus inconsistent with dates, antepartum?? Uses Belarusian as primary spoken language?? Education Materials Below is the list of Educational Leaflet Providered with your Discharge Instructions. OB PP [facility]- Discharge Instructions?? Valuables and Belongings I fully understand and agree that [facility] accepts no responsibility for all my personal property including clothing, toilet articles, radios, jewelry, dentures, hearing aids, rings, money, or any other property that is in my possession or is brought to me after admission. I understand certain valuables may be placed in a hospital safe for a short period of time. I understand that the hospital is not liable for loss or damage due to accident, fire, or other natural occurrence while said property is in the safe. I accept full responsibility for any personal property that I keep with me, and will not hold the hospital responsible in case of loss or disappearance. I acknowledge that i have been encouraged to send valuables and belongings home. ?? No Valuables/Belongings: No valuables/belongings present Date for Pt to Sign Valuables/Belongings: 09/02/22 17:50:00 ?? Other Discharge Information ? Pulmonary Rehab Status?? Pulmonary Rehab Discharge Status?? Respiratory Rate: 18 br/min Respiratory Rate: 18 br/min ? Common Emergency Awareness Tips IS IT A STROKE? Act FAST and Check for these signs: FACE Does the face look uneven? ARM Does one arm drift down? SPEECH Does their speech sound strange? TIME Call at any sign of stroke ?? Heart Attack Signs Chest discomfort: Most heart attacks involve discomfort in the center of the chest and lasts more than a few minutes, or goes away and comes back. It can feel like uncomfortable pressure, squeezing, fullness or pain. Discomfort in upper body: Symptoms can include pain or discomfort in one or both arms, back, neck, jaw or stomach. Shortness of breath: With or without discomfort. Other signs: Breaking out in a cold sweat, nausea, or lightheaded. Remember, MINUTES DO MATTER. If you experience any of these heart attack warning signs, call to get immediate medical attention! ?? Smoking can increase your chances of developing chronic health problems and can cause harmful effects to other family members in your house. If you smoke, you are strongly encouraged to quit. Please call [facility] [employer] [facility] at [phone] or [phone] ([phone]) or log in to [email or web address] for referrals to smoking cessation programs. ?? 836 Suicide & Crisis Lifeline is available 01/09 if you or someone you know needs to find a reason to keep living. By calling 521 you'll be connected to a skilled, trained counselor at a crisis center in your area. INPATIENT DISCHARGE INSTRUCTIONS SIGNATURE PAGE LUCRECIA BRAVO Location:[facility] Registration Date and Time:09/02/2022 10:16 EDT Primary Care Physician: Chitra Rodriguez MD, Attending Physician: Art Medina MD, Shady RHODES [OB], Adeline Angulo, I LUCRECIA BRAVO, have received the above patient education materials/instructions and have verbalized understanding. If ambulance or transport services are being used I further acknowledge being given a choice of service. ?? If you need to contact me, please call me at this number: . Patient/Burlap Worker Name: Patient/Burlap Worker Signature: Relationship to Patient: Witness Name/Signature: Date: * Susan Tracy RN: PERFORM, SIGN, VERIFY Event Display: Patient Education Handout Authored Date: [id number] * Susan Tracy RN: PERFORM Event Display: Patient Education Leaflets Authored Date: OB PP [facility]- Discharge Instructions ?? 212 Instrucciones de cuido de moustapha para la nueva felicity?? y el beb?? [Discharge Care Instructions for the New Mom and Baby] [place] un momento para leer estas instrucciones ??tiles antes de salir del hospital.?? Thomson enfermera responder?? cualquier pregunta que pueda tener con mucho gusto.?? Tambi??n puede encontrar esta y m??s informaci??n en el folleto p??rpura Formando robert kendall, la Gu??a de nuevos comienzos de [employer] la Gu??a para servicios de consulta de lactancia, entregados a usted despu??s del nacimiento de thomson beb??.?? Tambi??n puede llamar a nuestras estaciones de enfermeras si tiene m??s preguntas.?? [facility]:?? Primer piso ([phone]), sybil piso ([phone]).?? Llame a thomson m??dico si tiene cualquier pregunta o preocupaci??n antes de thomson pr??xima nadira. Para recibir ayuda continua, por favor tova clic a ???Me gusta?? en nuestra p??oscar ???[employer]s [employer]?? en Facebook y [employer]??base a nuestro bolet??n de noticias por correo electr??nicoen [email or web address].?? Se le enviar??n noticias e informaci??n hasta que thomson beb?? cumpla roseanne a??os. Instrucciones para la nueva madre [Instructions for the New Mother] Actividad: [Activity:] Francois las pr??ximas 2 semanas en casa - no levante objetos pesados, evite subir escaleras innecesariamente y no conduzca (especialmente si est?? tomando medicamentos que le puedan causar apoorva??o o siente que no crews dormido lo suficiente).?? Francois las pr??ximas 4 a 6 semanas - no utilice tampones, no se tova irrigaci??n vaginal, no tengarelaciones sexuales. Use thomson botella perineal para enjuagar thomson perineo hasta que se detenga thomson flujo vaginal.?? Si tiene puntos de sutura en thomson trasero, generalmente se disuelven en 7 o 10 d??as.?? Apl??quese Tucks o pa??os de hamamelis hasta que el dolor haya pasado.?? Use el ba??o en casa cada 3 a 4 horas, enju??guesey cambie jihan toallas sanitarias. Las duchas tibias se sienten muy cm para los m??sculos, espaldas y traseros adoloridos. Ejercicio: [Exercise:] Caminar es la mejor forma de ejercicio.?? Espere hasta thomson nadira de seguimiento con thomson m??dico de 4 a6 semanas antes de participar en actividades m??s extenuantes. Dieta: [Diet:] Rajni suficientes l??quidos para evitar el estre??imiento y ayudar a thomson recuperaci??n. Coma suficientes alimentos ricos en johan rosa la carne cinda, cereales enriquecidos con johan rosa Total y Cream of Wheat, pasas, ciruelas, hojas verdes y espinacas.?? Estos le ayudar??n a subir surecuento sangu??ashly ya que todas las mujeres pierden algo de justine despu??s del parto.?? Tambi??n,a??ada alimentos ricos en vitamina C rosa las fresas, chinas/naranjas, papayas, col rizada y pimientos. Contin??e tomando jihan vitaminas prenatales si est?? amamantando.?? Si no est?? amamantando, siga las instrucciones de thomson m??dico.?? Si le recetaron suplementos de johan rosa sulfato de johan, es importante continuar usando estos hasta que thomson m??dico o partera le indique que pare. ?? Cuidado de los senos para madres lactantes [Breast Care for Nursing Mothers:] Use un sost??n de maternidad c??modo y firme.?? No se recomienda un sost??n con aros. Extraiga gotas de leche materna y p??selas sobre jihan pezones y areola (jaspreet evans??n) antes y despu??s de cada alimentaci??n para proteger y sanar la piel sensitiva y despu??s, seque jihan pezones al aire.?? Si est?? sintiendo alg??n dolor, puede comprar cremas para el pez??n rosa [employer] o [employer].?? Util??liss de la siguiente manera: termine thomson sesi??n de alimentaci??n o bombeo, extr??igase elcalostro sobre thomson pez??n y d??jelo secar al aire. Aplique la crema al pez??n y areola.?? Util??celaen rajesh??as cantidades para obtener mejores resultados. Si est?? teniendo dificultad para lograr que el beb?? se pegue al seno debido a la hinchaz??n de laareola, intente aplicar presi??n con jihan dedos por un par de minutos por encima y por debajo del pez??n y, mueva jihan dedos hacia afuera, ablandando el ??shamar y empujando la hinchaz??n hacia afuera.?? Esta t??cnica es conocida rosa ablandamiento de presi??n inversa.?? Para demostraciones de esta y otras t??cnicas rosa la t??cnica de Expresi??n de mano de [place] (???[place] Hand Expression?? ), por favor refi??rase a la secci??n de recursos de la Gu??a de servicios de consulta de lactancia materna que recibi?? de parte de los servicios de lactancia. Puede que experimente congesti??n la primera vez que llegue thomson leche, generalmente entre 3 a 5 d??as despu??s del parto.?? Jihan senos pueden volverse sensibles e hinchados.?? Las compresas fr??as funcionan muy cm para ayudar con las molestias y reducir la hinchaz??n. Mejorar?? en un par de d??as.?? Contin??e amamantando a thomson beb?? frecuentemente.?? Llame al Servicio de consulta de lactancia materna del [facility] m??dico de [facility] [phone], oprima 1 para programar robert nadira ambulatoria u oprima 3 y robert consultora le devolver?? thomson llamada samara mismo d??a o al siguiente si llama despu??s de las 3 p. m. Cuidado de los senos para madres que alimentan con biber??n [Breast Care for Bottle Feeding Mothers:] Puede ocurrir congesti??n francois la primera semana postparto.?? Jihan senos pueden volverse duros y muy sensibles.?? Robert compresa fresca de hojas de col rosanne, crudas y limpias aplicada a los senos y cambiada seg??n las hojas se marchitan crews demostrado ser ??til para muchas mujeres.?? Las bolsas de hielo o bolsas de guisantes congelados tambi??n trabajan cm para aliviar las molestias.?? La sensibilidad solo durar?? un par de d??as. Mant??ngase de espaldas hacia el agua mientras se ducha para reducir la estimulaci??n de los senos. Utilice un sost??n ajustado, por ejemplo, un sost??n deportivo. Cuidado de incisi??n despu??s de robert ligadura de trompas o yadi??shamar: [Incision Care Following Tubal or Section:] Puede ducharse seg??n le indique thomson doctor o partera.?? Seque (sin frotar) thomson incisi??n con robert toalla limpia.?? No necesitar?? robert venda despu??s del primer d??a. Llame a thomson doctor o partera si encuentra cualquier se??al de infecci??n rosa robert incisi??n dura, caliente o inflamada, especialmente si la piel alrededor de la incisi??n tiene un color gallego o drew.?? Supuraciones lula con olor tambi??n pueden ser robert se??al de infecci??n que debe informar. Llame a thomson doctor o partera si la incisi??n comienza a separarse. Si tiene cintas est??tobias en la incisi??n (steri-strips), es probable que se caigan en la primera semana.?? Si no se jeronimo ca??do luego de 10 d??as despu??s del parto, se las puede remover. M??todos anticonceptivos: [ Control:] Thomson doctor o partera conversar?? con usted sobre m??todos anticonceptivos cuando sea yadira de moustapha del hospital o en thomson chequeo postparto.?? Aseg??rese de dejarle saber a thomson m??dico si est?? amamantando. Se le coloc?? un dispositivo intrauterino (IUD, por thomson sigla en ingl??s) Paragard el .?? Kathy m??todo anticonceptivo es efectivo por 10 a??os. Se le coloc?? robret Liletta el .?? Kathy m??todo anticonceptivo es efectivo hasta por 5 a??os. Se le coloc?? un Nexplanon el .?? Kathy m??todo anticonceptivo es efectivo hasta por3 a??os. Recibi?? robert inyecci??n Depo Provera el .?? Kathy m??todo anticonceptivo es efectivomientras lo repita cada 3 meses.?? Programe thomson pr??xima dosis antes del .?? . Tiene robert receta para p??ldoras anticonceptivas .?? Es importante blaise robert p??ldora todos los d??as a la misma hora para tener robert protecci??n anticonceptiva efectiva.?? Manejo del dolor: [Pain Management:] Los calambres despu??s del parto son comunes y aumentan en fuerza con cada beb?? que tenga.?? Si siente calambres dolorosos y no es al??rgica al acetaminofeno (Tylenol) o ibuprofeno (Motrin), puede continuar tomando estos medicamentos rosa lo hizo en el hospital.?? El ibuprofeno tambi??n ayuda con los claudia de espalda despu??s de las anestesias epidurales, los claudia perineales despu??s de un parto vaginal y claudia moderados en la incisi??n despu??s de robert yadi??shamar o cirug??a de ligadura detrompas.?? Si siente distensi??n de gases, especialmente despu??s de robert cirug??a, puede blaise un medicamento sin receta llamado simeticona.? T??mese estas tabletas masticables 4 veces al d??a seg??n sea necesario e indicado en las instrucciones.?? Siga movi??ndose.?? Caminar o mecerse en robert silla ayudar?? a pasar el gas.? T?? de jengibre hecho con hernán ambar calentado (en vez de agua) y robert bolsa det??, agitado para disolver la carbonataci??n (burbujas) es robert bebida ??til para aliviar un est??reece gaseoso. Se??ales de advertencia de un problema que debe notificar a thomson doctor o partera: [Warning Signs of a Problem to Notify Your Doctor or Supervising Appraiser of:] Sangrado vaginal abundante ??? es cuando empapa robert toalla sanitaria cada hora con justine cinda brillante. Co??gulos de sangres del jose alejandro??o de un huevo o mayores. Robert incisi??n que no lucrecia. Robert temperatura mayor o igual al 100.4 ??F (38 ??C), especialmente si est?? acompa??ada por cualquiera de los siguientes s??ntomas ??? dolor al orinar, orina frecuente; dolor dioni de espalda o del costado, dolor en el abdomen bajo con un mal olor del flujo vaginal, robert jaspreet cinda, dura y caliente en thomson seno.?? Dolor de padmini dioni que no desaparece despu??s de blaise acetaminofeno o ibuprofeno.?? Un dolor de padmini que cambia thomson vista, esto incluye el carl manchas o borroso. Dolor al lado derecho de la parte superior del abdomen a lo bridger de la caja tor??cica. Dolor en jihan piernas que es c??lido y sensible al tacto. Los s??ntomas de la depresi??n postparto pueden incluir ??? perdida de inter??s en thomson beb??, sentirse propensa al llanto, dificultad para concentrarse, p??rdida de peso sin apetito, agotamiento, sentirse abrumada o ansiosa, desesperaci??n, pensamientos de lastimarse a usted misma o thomson beb??.?? Estos s??ntomas son importantes y deben ser discutidos con thomson doctor o partera. La depresi??n postparto puede desarrollarse con el tiempo y necesita atenci??n m??dica inmediata.?? No sufra en silencio.?? Tanto en el folleto de Formando robert kendall rosa en la Gu??a de nuevos comienzos de [facility] hay unaherramienta de detecci??n utilizada para identificar a las mujeres en riesgo, llamada la [place], la cual usted ya vy?? en la oficina antes del parto y otra vez francois thomson estad??a en elhospital.?? Verifique con thomson m??dico de roseanne a cuatro semanas despu??s de thomson parto y antes de thomson nadira de postparto, tome esta prueba y comparta jihan resultados con thomson m??dico.?? Aseg??rese de mencionar cualquier puntuaci??n de 10 o m??s.?? Muchas mujeres e incluso, algunas parejas, pueden sentir la tristeza del beb?? o ???baby blues?? .?? [place] es un estado de sentimientos abrumadores y de llanto.? Molestias por el parto, cambios hormonales, cansancio, cambios a thomson cuerpo y estilo de blanquita son algunas de las cosas que contribuyen a las altas y bajas a las cuales se enfrentan los nuevos padres.?? No tenga miedo en pedirle ayuda a thomson natalia, kendall o amigos en la casa para poder descansar o tener algunos minutos para usted.?? Los???blues?? pasar??n r??pidamente. Seguridad personal: [Personal Safety:] Toda persona tiene derecho a sentirse harris en thomson casa y a vivir adriana de da??os f??sicos o emocionales.?? Si crews sufrido abuso f??sico o mental en thomson casa, no est?? aurelio.?? Hay ayuda.?? Por favor llame a la l??juanita de ayuda al o al programa [facility] al [phone]. CUIDADO PARA EL RECI??N NACIDO [ CARE] Ba??o: [Bathing:] Krzysztof un ba??o con esponja a thomson beb?? hasta que se le caiga el cord??n umbilical en aproximadamente 1 a 3 semanas.?? No es necesario ba??ar a thomson beb?? todos los d??as, generalmente es suficiente ba??jett cada dos o roseanne d??as.?? Mantenga el ??shamar del cord??n umbilical seca.?? Algunas beb??s tendr??nun rajesh??o flujo vaginal de justine. No hay necesidad de preocuparse ya que esto es normal. No es necesario utilizar lociones en la piel del beb??.?? No se recomiendan los polvos ni los aceites.?? A menudo, los beb??s tienen sarpullido de reci??n nacido en thomson piel que viene y se va r??pidamente y no requiere socorro??n cuidado especial.?? El sarpullido ocasionado por los pa??ales puede ser tratado con robert preparaci??n de ??xido de zinc rosa Desitin o crema de pa??ales Balmex. Cuidado de la circuncisi??n: [Circumcision Care] Thomson enfermera le ense??ar?? c??mo cuidar la circuncisi??n de thomson beb?? dependiendo de la circuncisi??n que thomson doctor o partera haya realizado.?? La mayor??a de las circuncisiones requieren larry??ento A&D por unos 4 a 5 d??as.?? Sea generosa con la cantidad de A&D que utiliza ya que esto va a evitar que el pa??al se pegue cuando lo vaya a cambiar. Si se realiz?? robert circuncisi??n con pinzas pl??sticas, el anillo pl??stico alrededor del pene se caer?? m??s o menos en robert semana. Pa??ales: [Diapers:] Despu??s de los primeros d??as, el beb?? empezar?? a mojarse m??s a menudo.?? Un beb?? amamantado se mojar?? unas 6 a 8 veces al d??a robert vez tome leche materna ??? generalmente el 4?? o 5?? d??a.?? [place] es robert buena se??al de que el beb?? est?? comiendo lo suficiente.?? Puede que note robert marcie burton anaranjada en el pa??al, lo cual es normal en los primeros d??as. Las primeras evacuaciones del beb?? son pegajosas, negras y alquitranadas.?? A medida que el beb?? comience a alimentarse m??s a menudo francois los pr??ximos d??as, las heces cambiar??n a un color verdoso amarillento y eventualmente, heces blandas rosa mostaza para un beb?? amamantado y heces lula m??s formadas para un beb?? alimentado con biber??n. Amamantando thomson beb??: [ your Baby:] ?Felicidades por decidir amamantar a thomson beb??! Usted est?? proporcionando a thomson beb?? la natalya de alimento m??s nutritiva en el planeta, thomson leche materna.?? Se??ales rosa movimientos de buscar conla boca, succionar, lamer y estar inquieto pueden significar que thomson beb?? est?? listo para comer ??? y es hora de ofrecer jihan pechos. Las primeras semanas posteriores al nacimiento son un momento para que usted y thomson beb?? aprendan.?? El beb?? puede tener apoorva??o el primer d??a despu??s del nacimiento con 8 a 12 intentos de amamantamiento ??? incluyendo de 2 a 4 buenas alimentaciones.?? Francois lospr??ximos d??as el beb?? estar?? m??s despierto, se alimentar?? 8 a 12 veces al d??a y tendr?? m??s pa??ales sucios.?? La alimentaci??n agrupada, especialmente francois la tarde/noche, es normal.?? Est?? atenta a sonidos que indiquen que el beb?? est?? tragando y levar c??mo se va relajando en el pecho ??? ambas son buenas se??ales de que el beb?? est?? obteniendo robert buena cantidad de leche.?? Abst??ngase de fumar o ingerir marihuana comestible mientras est?? amamantando. Aunque la marihuanaes legal en el estado de [place], es da??aileen para thomson beb??. Se queda en la leche materna por un bridger periodo de tiempo y el THC puede ser encontrado en la orina del beb?? hasta por 3 semanas. El humo de segunda mano tambi??n puede aumentar el riesgo de S??ndrome de muerte s??jaelyn infantil (SIDS, por thomson sigla en ingl??s). ?? La lactancia es maravillosa scott muchas felicity??s y beb??s tienen alg??n jazmin de dificultad con jose al principio. ??No se rinda!?? Hay muchos recursos disponibles para ayudarle a superar estos problemas temporales. Thomson pediatra quiere saber de usted si est?? teniendo dificultades para amamantar y puede ofrecerle muchas soluciones ??tiles.?? Algunas oficinas tienen consultoras de lactancia en el personal. El Servicio de consulta de lactancia materna del centro m??dico de [facility] est?? disponible 7 d??as a la semana, de 8 a.m. a 3 p.m. Anat al [phone].?? Oprima 1 para programar robert nadira ambulatoria.?? Oprima 3 para dejar un mensaje a la consultora de lactancia, robert consultora le devolver?? thomson l lamada samara mismo d??a o al siguiente si llama despu??s de las 3 p.m. Grupos de apoyo para la lactancia - [facility], [facility] ofrece reuniones semanales gratis para felicity??s y beb??s.? Todos los grupos se re??nen en el 2?? piso de [facility], generalmente la toyin de conferencias [facility], los mi??rcoles de 1 a 2 p.m.?? [employer] es robert organizaci??n mundial de lactancia con apoyo comunitario local, apoyo de madre a madre.?? Puede encontrar informaci??n en [email or web address] Alimentando a thomson beb?? con f??rmula: [Formula Feeding your Baby:] Los beb??s alimentados con f??rmula deben comer cada 3 a 4 horas.?? Busque se??ales de que thomson beb??est?? listo ??? tales rosa movimientos de buscar con la padmini, succionar, lamer y mostrarse inquieto.?? El est??reece del beb?? es rajesh??o al nacer y puede blaise unos 10 a 15 ml de f??rmula.?? En los pr??ximos d??as el beb?? estar?? m??s despierto y se alimentar?? m??s seguido, aumentando gradualmente las cantidades de f??rmula tomadas en la alimentaci??n.?? Thomson pediatra le krzysztof?? instrucciones sobre c??mo aumentar la cantidad.?? Consulte el empaque para las instrucciones de preparaci??n de f??rmula, dependiendo del tipo de f??rmula que compre ??? en polvo, concentrada o lista para blaise. Seguridad del beb??: [ Safety:] RECUERDE SIEMPRE - ??DORMIR BOCA ARRIBA! [ALWAYS REMEMBER - BACK TO SLEEP!] La posici??n m??s harris para que duerman los beb??s es boca arriba.?? Siempre.?? En todo momento.?? Todas las siestas. Los beb??s necesitan robert superficie firme con robert s??bana bajera cm ajustada.?? NO debe paul ropa de cama suelta.?? NO debe paul almohadas.?? NO debe paul protectores o rollos acolchonados.?? NOdebe paul mantas pesadas o abultadas. NO debe paul peluches. No es seguro que thomson beb?? duerma en thomson cama, en robert silla o en un sof??.?? Thomson beb?? no deber??a dormir con usted ni con nadie. Asiento de seguridad: Coloque siempre a thomson beb?? en un asiento de seguridad que ritu hacia atr??s en el asiento trasero del auto. Los suplementos que vengan con el asiento de seguridad del auto pueden ser utilizados ya que son puestos a prueba contra impacto junto con el asiento de seguridad.?? No debe comprar suplementos adicionales.?? [place] al beb?? con ropa adecuada para el clima.?? Evite ropas de capa gruesa rosa trajes de armando o chaquetas ya que el beb?? puede retorcerse en el asiento, aflojando las correas de hombro y salirse por encima del arn??s si usted necesita frenar muy dioni o tiene un accidente.?? Robert vez el beb?? est?? asegurado en thomson asiento, puede cubrir a thomson rajesh??o con roebrt manta si es necesario.?? Si thomson beb?? naci?? prematuro, siga las instrucciones que le dieron.?? Si no lo crews hecho ya, verifique que thomson asiento de seguridad est?? instalado correctamente. Verifique con el cuerpo de bomberos y la polic??a local si ofrecen inspecciones para asientos de seguridad en un lugar cercano. Los beb??s pueden moverse: ?? No deje a thomson beb?? sin supervisi??n en ninguna superficie, elevada o plana, ni mientras lo ba??a.?? Pueden retorcerse, caerse o lastimarse.?? Ajuste el cintur??n de seguridad siempre que utilice un asiento para beb?? o mecedora, ya que pueden inclinarse hacia niles ycaerse. Lavarse cm las nazia es la mejor forma de proteger al beb?? de demasiados g??rmenes y prevenir infecciones.?? Cuando la kendall y los amigos visiten, p??dales que se laven las nazia antes de cargara thomson beb??.?? Tambi??n, evite las multitudes en el primer mes de blanquita de thomson beb?? para protegerle de resfriados y gripes. Sacudir a un beb?? por frustraci??n puede causar da??os graves y duraderos, incluso la muerte a un beb??.?? Si siente que se est?? molestando o se siente abrumada, coloque al beb?? en un lugar seguroy al??kiya.?? Llame a un amigo o familiar.?? Si no le pueden ofrecer ayuda inmediata, llame a la l??juanita de emergencia para padres en estr??s al , robert natalya de ayuda an??reema 01/09. Se??ales de advertencia que debe notificar a thomson pediatra: [Warning Signs to notify your casino controller of:] La mayor??a de los beb??s desarrollan robert rajesh??a cantidad de ictericia (piel de color amarillento) en la donna y la parte superior del pecho alrededor de los 3 d??as de edad.?? Si el color amarillo se extiende por debajo de la marybeth del beb?? o si el beb?? tiene mucho apoorva??o y no se alimenta cm, llame a thomson pediatra. Robert temperatura rectal de 100.4 ??F (38 ??C) ya que pudiera ser robert se??al de infecci??n. V??mitos explosivos que contin??en con cada alimentaci??n pueden indicar reflujos o un problema conla f??rmula. Somnolencia extrema o muy inquieto. S??ntomas de resfr??o con congesti??n nasal, especialmente si el beb?? est?? teniendo dificultades para alimentarse. Estre??imiento con heces duras. Color kourtney u oscuro, llame al 911. Si thomson beb?? necesita permanecer en el hospital: [If Your Baby Needs to Remain in the Hospital:] Por favor deje puestos los brazaletes de identificaci??n de thomson beb?? si thomson beb?? necesita permanecer en el hospital despu??s que usted es yadira de moustapha. El n??alan de tel??fono de la Unidad de cuidados intensivos neonatales (NICU, por thomson sigla en ingl??s) es el [phone]. El n??alan de tel??fono de la Unidad de enfermer??a de cuidados cr??ticos (CCN, por thomson sigla en ingl??s) es el [phone]. El n??alan de tel??fono de la toyin de reci??n nacidos D Deejay 2 es el [phone]. Madres lactantes deben bombearse cada 2 o 3 horas u 8 a 12 veces en 24 horas.?? Si no se puede colocar el beb?? en el pecho, si est?? teniendo dificultad para que el beb?? se pegue o si el beb?? permanece en el hospital despu??s de que le maggie de moustapha ??? traiga la leche bombeada al hospital, etiquetada con nombre, fecha y hora.?? Ll??montana en robert hielera rajesh??a o bolsa de pa??ales con robert bolsa de hielo y tr??igala la pr??xima vez que visite a thomson beb??.?? El Servicio de consulta de lactancia materna est?? disponible si necesita alquilar o comprar robert bomba o productos de lactancia.?? Llame ydeje un mensaje al [phone] ??? Oprima 3 y robert consultora le devolver?? thomson llamada samara mismo d??a o al siguiente si llama despu??s de las 3 p.m. ? * Susan Carvajal: PERFORM Event Display: Care Team Progress Note Authored Date: [id number] Patient: ??LUCRECIA BRAVO ? Age:??32 Years?Sex:??Female?:??1990?? Subjective cart rounds day??1 assessment for assistance Patient??has previous experience Feeding sheet??is adequately filled out Patient has obtained personal pump Worked with a patient's friend translating per patient request. Assessment/Plan Patient has been feeding at the breast and supplementing with formula.?? Some of the amounts are documented at 1.5 ozs.?? Encouraged patient to keep binging the baby to the breast and try to keep thesupplementation to 5-15mls.?? Patient latched baby at visit.?? Baby latched well ?? Stimulation and Milk Supply Education Breast milk supply is created in the first two weeks Stimulate every 2-3 hours for optimal supply Don't go longer than 4 hours without stimulation Stimulation includes hand expression, latching or pumping Hormones release with initial touch, therefore frequent touch is supportive ? Basic education discussed with mother/family including:? Positioning infant for optimal feeding Asymmetric latch technique Frequent breast stimulation for initiation and maintenance of milk supply Engorgement prevention and management (page 12 guide) How to know your baby is getting enough (page 14 guide) Hand expression When to use a breast pump Consultation reference guide given to mother with contact information for services and ongoing support as needed.?? OB Summary : 2 Parity: 1 . Baby A - Weight: 2.774 kg Baby A - Date, Time of : 09/02/22 16:51:00 Baby A - Gender: Female Baby A - Complications: None EGA at Documented Date, Time: 39W 3D Weight at Delivery Baby A - Delivery Type: , low transverse OB History History?(1,0,0,1)? # 1 ?Baby 1 ?Outcome Date:??01/20/2015?Outcome or Result:?Gest Age:??41 weeks ? Outcome:??Live ? Sex:??Male?Wt:?3515 g ?Comment:??failure to progress Active Problem List Active Problem List Anemia: (Medical) Carnitine degeneration: (Medical) History of delivery affecting : (Medical) History of HPV infection: (Medical) HSV-2 infection: (Medical) : (Obstetric) (11/28/21) Size of fetus inconsistent with dates, antepartum: (Medical) Uses Belarusian as primary spoken language: (Medical) Home Medications Ferrous Sulfate: By Mouth Levocarnitine: 990 mg = 3 tablet, By Mouth, 4 times a day, with meals Multivitamin, : By Mouth, Daily Polyethylene Glycol 3350: 17 Gm, By Mouth, Daily, dissolve in water before taking ValACYclovir: 500 mg = 1 tablet, By Mouth, 2 times a day Medications Medications (21) Active SCHEDULED: (9) Acetaminophen 325 mg Tablet (Acetaminophen Tablet) ??650 mg, By Mouth, Every 4 hours Docusate Sodium 100 mg Capsule (Docusate Sodium Capsule) ??100 mg 1 capsule, By Mouth, 2 times a day Enoxaparin 40 mg Inj (Enoxaparin Inj) ??40 mg 0.4 mL, Subcutaneous Injection, Every 24 hours Famotidine 20 mg Tablet (Famotidine Tablet) ??20 mg, By Mouth, 2 times a day Ferrous Sulfate 325 mg EC Tablet (ferrous sulfate 325 mg oral enteric coated tablet) ??325 mg, By Mouth, Daily Ibuprofen 800 mg Tablet (Ibuprofen Tablet) ??800 mg, By Mouth, Every 8 hours Levocarnitine 330 mg Tablet (levOCARNitine 330 mg oral tablet) ??990 mg, By Mouth, 4 times a day Multivitamin Tablet ( Multivitamin Tablet) ??1 tablet, By Mouth, Daily ValACYclovir 500 mg Tablet (Valtrex 500 mg oral tablet) ??500 mg, By Mouth, 2 times a day CONTINUOUS: (1) Lactated Ringers (1000 mL) Cont IV 1,000 mL (Lactated Ringers 1,000 mL) ??1,000 mL, IV Infusion, 125 mL/hr PRN: (11) diphenhydrAMINE 25 mg Tablet (DiphenhydrAMINE Tablet) ??25 mg, By Mouth, Every 4 hours diphenhydrAMINE 50 mg/mL Inj (DiphenhydrAMINE Inj) ??25 mg 0.5 mL, IV Push, Once FENTanyl 50 mcg/mL Inj (2 mL) (FENTanyl Inj) ??25 mcg 0.5 mL, IV Push, Every 5 minutes Metoclopramide 5 mg/mL Inj (2 mL) (Metoclopramide Inj) ??10 mg, IV Push, Every 6 hours nalOXONE ??400mcg/mL Inj (nalOXONE Inj) ??0.1 mg 0.25 mL, IV Push Slowly, Every 15 minutes Ondansetron 2mg/mL Inj (2mL Vial) (Ondansetron Inj) ??4 mg, IV Push, Once OxyCODONE 5 mg IR Tablet (OxyCODONE IR Tablet) ??5 mg, By Mouth, Every 3 hours OxyCODONE 5 mg IR Tablet (OxyCODONE IR Tablet) ??10 mg, By Mouth, Every 3 hours OxyCODONE 5 mg IR Tablet (OxyCODONE IR Tablet) ??5 mg, By Mouth, Every 3 hours Polyethylene Glycol 17 Gm Powder (Polyethylene Glycol Powder) ??8.5 Gm 0.5 pack/packet, By Mouth, Daily Simethicone 80 mg Chewable Tablet (Simethicone Tablet) ??80 mg, Chew, 3 times a day Patient Care team information Care Team Personnel Name: Susan Tracy RN Position: S OB RN Member Role: Patient Care Provider Name: Yenni Dolan RN Position: S OB RN Member Role: Patient Care Provider Care Team Related Persons Name: LUC BONDS Address: home [address] [address] Name: MENA MOSHER Address: [address] [address] Name: CAROL ANN CROCKETT Address: [address] [address] Name: GEOVANY SHAW Name: LUCRECIA BRAVO GIRL Address: [address] Address: home [address] [place] [address]
--- OUTSIDE RECORDS SUMMARY | 2023-03-19 10:00 | XMS_ITS | Continuity of Care Document ---
Author Name Unknown Organization [facility] Deejayjoe cassidyWarwick [employer] Techn[employer] [facility] Address [address] [place] [address]- Care Team Providers Care Transport Assistant Name Role Phone Michael RHODES, Chitra Primary Care Physician [phone] Encounter [facility] [id number] Date(s): 07/21/22 - 07/28/22 [facility] Melvinjoe RodriguezWarwick [employer] [facility] [address] [place] [address]- Attending Physician: Mariposa Chen MD Referring Physician: Delia Ortega MD Allergies, [...] 0 Refills, Maintenance, 07/21/22 12:39:00 EDT, REC [facility], [id number], Partial fill upon patient request if the [...] History of HPV infection Confirmed Active Uses Ukrainian as primary spoken language Confirmed Active Vital Signs Most recent to oldest [Reference Range]: 1 Height 158 cm (07/21/22 11:09 AM) Weight 66.36 kg (07/21/22 11:09 AM) Body Mass Index [18.5-24.99 kg/m2] 26.58 kg/m2 *H* (07/21/22 11:09 AM) Blood Pressure [90-138/55-84 mm Hg] 100/ 52mm Hg (07/21/22 11:09 AM) Blood pressure sites Arm, right (07/21/22 11:09 AM) Weight Obtained Via Standing scale (07/21/22 11:09 AM) Social History Social History Type Response Smoking Status Former smoker, quit more than 30 days ago; Exposure to Secondhand Smoke: No; Tobacco user in household: No; Other: quit with ; entered on: 06/23/22 Sex Note * Neha Franks: PERFORM, SIGN, VERIFY Event Display: Patient Education/Instruction Authored Date: [id number] [facility] *Rohit HARRISG INDUCTION COORDINATION POWER ENGINEER Clinical Summary Name ANDRZEJ BRAVO Age 32 Years 1990 PCP PCP Phone Visit Date 07/21/2022 11:03:00 Additional Instructions: Scheduled Appointments?? Future Appointments ?*Rohit??[facility]G??INDUCTION COORDINATION POWER ENGINEER ?Phone:??--?Fax:??-- ?Appt. Date:??07/25/2022?8:00 AM ?Scheduled Provider:??[facility] [address] ?*[facility]??[facility]??INDUCTION COORDINATION POWER ENGINEER ?[address],??[address] ?Phone:??--?Fax:??-- ?Appt. Date:??08/04/2022?11:20 AM ?Scheduled Provider:??Shady RHODES, Adeline Angulo ?*[facility]??[facility]??INDUCTION COORDINATION POWER ENGINEER ?[address]??[place],??[address] ?Phone:??--?Fax:??-- ?Appt. Date:??08/11/2022?11:20 AM ?Scheduled Provider:??Starling CNM , Laura S ?*[facility]??[facility]??INDUCTION COORDINATION POWER ENGINEER ?[address],??[address] ?Phone:??--?Fax:??-- ?Appt. Date:??08/18/2022?10:20 AM ?Scheduled Provider:??Shady RHODES, Adeline Angulo ?*[facility]??[facility]??INDUCTION COORDINATION POWER ENGINEER ?[address],??[place],??[address] ?Phone:??--?Fax:??-- ?Appt. Date:??08/25/2022?9:00 AM ?Scheduled Provider:??Laura Mitchell CNM Follow-Up Instructions ?? Diagnosis Medications: Please continue your medications until treatment is completed or stopped by your provider. Discuss any questions related to medications with your provider. Medications to Continue with No Changes These medications were not printed or sent to your pharmacy Ferrous Sulfate (iron sulfate) Oral. Next Dose: Multivitamin, (PNV ) Oral Daily. Next Dose: Allergy Info:?? Latex Medications Given This Visit Future Orders ?No future orders Vital Signs Height 158 cm Weight 66.36 kg BMI 26.58 kg/m2 Blood Pressure 100 mm Hg/52 mm Hg Temperature Pulse Rate Respiratory Rate 02 Sat Mode of Delivery / You can now view a summary of your hospital visit from the comfort of your home through a free online portal called [employer]Wave. Dragon[employer] is a website that allows you to securely view your medical information including discharge summary, medications and follow-up visits. ??You can alsosend a secure electronic message to your doctor???s office to request appointments, renew medications or just ask a question. You can enroll at [email or web address] or register during your next office visit. [...] primary care provider, you may find a [facility] provider by calling [facility] at [phone]. For information about the plan of care [...] documents you were given today. * Neha Frnaks: PERFORM, SIGN, VERIFY Event Display: Patient Education/Instruction Authored Date: [id number] [facility] *[facility] INDUCTION COORDINATION POWER ENGINEER Clinical Summary Name ANDRZEJ BRAVO Age 32 Years 1990 PCP PCP Phone Visit Date 07/21/2022 11:03:00 Additional Instructions: Scheduled Appointments?? Future Appointments ?*[facility]??[facility]??INDUCTION COORDINATION POWER ENGINEER ?Phone:??--?Fax:??-- ?Appt. Date:??07/25/2022?8:00 AM ?Scheduled Provider:??[facility] [address] ?*[facility]??[facility]??INDUCTION COORDINATION POWER ENGINEER ?[address],??[place],??[address] ?Phone:??--?Fax:??-- ?Appt. Date:??08/04/2022?11:20 AM ?Scheduled Provider:??Shady RHODES, Adeline Angulo ?*[facility]??[facility]??INDUCTION COORDINATION POWER ENGINEER ?[address],??[place],??[address] ?Phone:??--?Fax:??-- ?Appt. Date:??08/11/2022?11:20 AM ?Scheduled Provider:??Starling CNM , Laura S ?*[facility]??[facility]??INDUCTION COORDINATION POWER ENGINEER ?[address],??[place],??[address] ?Phone:??--?Fax:??-- ?Appt. Date:??08/18/2022?10:20 AM ?Scheduled Provider:??Shady RHODES, Adeline Angulo ?*[facility]??[facility]??INDUCTION COORDINATION POWER ENGINEER ?[address],??[address] ?Phone:??--?Fax:??-- ?Appt. Date:??08/25/2022?9:00 AM ?Scheduled Provider:??Laura Mitchell CNM Follow-Up Instructions ?? Diagnosis Medications: Please continue your medications until treatment is completed or stopped by your provider. Discuss any questions related to medications with your provider. Medications to Continue with No Changes These medications were not printed or sent to your pharmacy Ferrous Sulfate (iron sulfate) Oral. Next Dose: Multivitamin, (PNV ) Oral Daily. Next Dose: Allergy Info:?? Latex Medications Given This Visit Future Orders ?No future orders Vital Signs Height 158 cm Weight 66.36 kg BMI 26.58 kg/m2 Blood Pressure 100 mm Hg/52 mm Hg Temperature Pulse Rate Respiratory Rate 02 Sat Mode of Delivery / You can now view a summary of your hospital visit from the comfort of your home through a free online portal called DragonWave. DragonWave is a website that allows you to securely view your medical information including discharge summary, medications and follow-up visits. ??You can alsosend a secure electronic message to your doctor???s office to request appointments, renew medications or just ask a question. You can enroll at [email or web address] or register during your next office visit. [...] primary care provider, you may find a [facility] provider by calling [facility] at [phone]. For information about the plan of care [...] Persons Name: LUC BONDS Address: [address] [place] [address] Name: MENA MOSHER Name: CAROL ANN CROCKETT Address: [address] [place] [address] Name: GEOVANY SHAW
--- NOTE | 2023-03-19 10:12 | ED.ABDPAIN ---
HPI - Abdominal Pain General Chief Complaint: Abdominal Pain Stated Complaint: abd pain/ back pain Time Seen by Provider: 03/19/23 09:42 Source: patient, old records reviewed and court interpreter Mode of arrival: ambulatory Limitations: no limitations History of Present Illness HPI narrative: 33 yo female no sig PMH other than c section she is not s/p delivery in August no issues she comes in with a couple months of worsening RLQ and RUQ pain worse with movements and eating. No vomiting but has diarrhea. No fevers. MD elicited complaint: abdominal pain Pertinent past history: none Onset (ago): month(s) Pain Consistency: constant Location: RUQ and RLQ Severity: moderate Quality: cramping Radiation: none Migration to: no migration Exacerbating factors: eating and movement Relieving factors: nothing Associated symptoms: diarrhea Related Data Previous Rx's Medication Instructions Recorded amoxicillin 500 mg tablet 500 mg PO TID #15 tabs 06/26/22 cyclobenzaprine 10 mg tablet 10 mg PO TID PRN muscle spasm #20 03/19/23 tabs ibuprofen 600 mg tablet 600 mg PO Q6H PRN pain #30 tabs 03/19/23 Allergies Allergy/AdvReac Type Severity Reaction Status Date / Time latex [LATEX] AdvReac Mild RASH Unverified 10/27/19 19:48 Review of Systems Review of Systems Constitutional : No Weight loss, No Fever, No Chills ENT/Mouth : No sore throat, No Rhinorrhea Eyes: No Swelling, No Redness Cardiovascular : No Chest Pain, No SOB, NoEdema Respiratory : No Cough, No Sputum, No Wheezing Gastrointestinal : no Nausea, no Vomiting, positive Diarrhea, positive abdominal Pain, No Hematochezia, No Melena Genitourinary : No Dysuria, No Urinary Frequency, No Hematuria, No Urgency Musculoskeletal : No joint pain, No Myalgias, No Joint Swelling Skin : No Skin Lesions, No rash Neuro : No Weakness, No Numbness, No Dizziness, No Headache Psych : No Anxiety/Panic, No Depression All other systems reviewed and are negative. [facility] Past Medical History Attestation statement: The following information was validated with the patient. Source: old records reviewed Medical History No pertinent past medical history Surgical History H/O section Social History Social History Alcohol intake: never Patient Tobacco Use Status: Never used Tobacco Advance Directives: No Advance Directives Information Provided: No Physical Exam ED Vital Signs: Vital Signs - 24 hr 03/19/23 09:20 Temperature 97.5 F Pulse Rate 81 Respiratory Rate 18 Blood Pressure 108/49 L Pulse Oximetry 97 Oxygen Delivery Method Room Air BMI result Body Mass Index 29.5 Appearance: Alert. Oriented X3. No acute distress. Eyes: Pupils equal, round and reactive to light. ENT: Pharynx normal. Neck: Normal inspection. Neck supple. CVS: Normal heart rate and rhythm. Pulses normal. Respiratory: No respiratory distress. Breath sounds normal. Abdomen: Soft and moderate RLQ and RUQ ttp no rebound Skin: Skin warm and dry. Normal skin color. Normal skin turgor. Extremities: No lower extremity edema. No calf ttp Neuro: Oriented X 3. No motor deficit. No sensory deficit. Medical Decision Making Medical Decision Making [facility] Narrative: 33 yo female with months of RUQ and RLQ pain worsening no menses since August and only prior c section at this time will need labs, IVF, IV toradol and CT scan to evaluate for colitis, mass, renal colic, could be ovarian mass but given amount and degree of pain will obtain CT scan first Differential Diagnosis Differential Diagnoses: The differential diagnosis associated with the presentation includes colitis, mass, renal colic, could be ovarian mass Admission/Observation Consideration of admission/observation: Escalation of care including admission/observation considered Lab Data [facility] Lab Attestation statement: I reviewed the patient's lab results. 03/19/23 09:32 03/19/23 09:32 Labs: Lab Results 03/19/23 03/19/23 Range/Units 09:32 09:34 WBC 5.8 (4.8-10.8) X10*3/uL RBC 4.35 D (4.20-5.50) X10*6/uL Hgb 12.3 (12.0-16.0) g/dl Hct 36.9 L (37.0-47.0) % MCV 84.8 (80.0-98.0) fL MCH 28.3 (27.0-33.0) pg MCHC 33.3 (31.0-35.0) g/dl RDW 13.0 (11.0-16.0) % Plt Count 265 (160-400) X10*3/uL MPV 10.1 (9.4-12.3) fL Immature Gran % (Auto) 0.2 (0.0-0.4) % Neut % (Auto) 61.2 (45-73) % Lymph % (Auto) 31.5 (20-40) % Greene % (Auto) 5.2 (2-11) % Eos % (Auto) 1.7 (0-4) % Baso % (Auto) 0.2 (0-2) % Lymph # (Auto) 1.8 (1.2-4.9) X10*3/uL Greene # (Auto) 0.3 (0.1-1.2) X10*3/uL Eos # (Auto) 0.1 (0.0-0.4) X10*3/uL Baso # (Auto) 0.0 (0.0-0.2) X10*3/uL Abs Immat Gran (auto) 0.01 (0.00-0.03) X10*3/uL Absolute Neuts (auto) 3.6 (2.0-8.3) x10*3/uL Absolute Nucleated RBC 0.000 (0.0-0.012) X10*3/uL Nucleated RBC % (auto) 0.0 (0.0-0.2) /100WBC Sodium 138 (135-145) mmol/L Potassium 3.8 (3.3-5.1) mmol/L Chloride 108 (96-108) mmol/L Carbon Dioxide 23 (22-29) mmol/L Anion Gap 11 L (12-20) BUN 10 (9-16) mg/dL Creatinine 0.64 (0.5-1.4) mg/dL Estim Creat Clear Calc 117.0 Estimated GFR > 60 Random Glucose 94 (60-115) mg/dL Calcium 8.9 (8.4-10.2) mg/dL Total Bilirubin 0.6 (0.0-1.0) mg/dL Direct Bilirubin 0.2 (0.0-0.5) mg/dL AST 16 (5-31) U/L ALT 16 (0-31) U/L Alkaline Phosphatase 118 H (39-117) U/L Total Protein 7.3 (6.5-8.0) g/dL Albumin 4.2 (3.5-5.0) g/dL Lipase 15 (8-78) U/L Urine Color Yellow Urine Appearance Clear Urine pH 6.5 (5.0-9.0) Ur Specific [place] 1.025 (1.005-1.025) Urine Protein Negative (Neg-Trace) mg/dL Urine Glucose (UA) Negative (Negative) mg/dL Urine Ketones Negative (Negative) mg/dL Urine Blood Negative (Negative) Urine Nitrite Negative (Negative) Ur Leukocyte Esterase Negative (Negative) Urine RBC 0-2 (0-2) /HPF Urine WBC 0-5 (0-5) /HPF Ur Squamous Epith Cells 3-5 (0-2) /HPF Urine Bacteria None Seen (None Seen) Hyaline Casts 0-2 (0-2) /LPF Urine Test NEGATIVE (NEGATIVE) Independent Interpretation I performed an independent interpretation of an: CT Scan Radiology Impression Discussion of test interpretation with radiology: I have reviewed the radiologist's reading. External Record Review External record reviewed: Inpatient record Medications Administered Discontinued Medications Generic Name Dose Route Start Last Admin Trade Name Freq PRN Reason Stop Dose Admin Sodium Chloride 1,000 mls @ 999 mls/hr 03/19/23 10:15 03/19/23 11:10 Ns IV 03/19/23 11:15 999 mls/hr .Q1H1M SEGUNDO Administration Ketorolac Tromethamine 15 mg 03/19/23 10:11 03/19/23 11:12 Ketorolac Tromethamine 15 Mg/Ml Vial IVPUSH 03/19/23 10:12 15 mg ONCE ONE Administration Discharge Plan Discharge Clinical Impression: Pelvic congestion syndrome Patient Disposition: Home, Self-Care Instructions: Pelvic Pain (ED) Additional Instructions: CT scan shows likely congestion of the pelvic veins you need to follow up with your OBGYN. Your uterus is also possibly scarred to the abdominal wall post c section again please follow up with your OBGYN. return for fevers, vomiting, worsening pain or any other concerns. La tomograf?a computarizada muestra robert posible congesti?n de las venas p?lvicas y debe realizar un seguimiento con garcia obstetra. Es posible que garcia ?tero tambi?n tenga cicatrices en la pared abdominal despu?s de la yadi?shamar nuevamente. Leta un seguimiento con garcia obstetra. Regrese si tiene fiebre, v?mitos, dolor que empeora o cualquier otra inquietud. Prescriptions: New cyclobenzaprine 10 mg tablet 10 mg PO TID PRN (Reason: muscle spasm) Qty: 20 0RF ibuprofen 600 mg tablet 600 mg PO Q6H PRN (Reason: pain) Qty: 30 0RF No Action amoxicillin 500 mg tablet 500 mg PO TID Qty: 15 0RF Print Language: Indonesian
[2023-03-19] MEDS: 0.9 % Sodium Chloride 1,000 ML 999 ML IV (11:10)
[2023-03-19] MEDS: Ketorolac Tromethamine 15 MG/ML VIAL IVPUSH (11:12)
[2023-03-19 14:40] VITALS: BP 100/56; PULSE 78; RESP 16; TEMP 36.8; O2SAT 99
== END 2023-03-19 14:47 | disposition home or self-care (01) ==
PROVIDERS: Emergency Provider Emergency Medicine
DX: N94.89 Other specified conditions associated with female genital organs and menstrual cycle (principal); R10.31 Right lower quadrant pain; R10.11 Right upper quadrant pain; M54.50 Low back pain, unspecified; R19.7 Diarrhea, unspecified; Z79.899 Other long term (current) drug therapy
CPT/HCPCS: 36415; 74177; 80048; 80076; 81001; 81025; 83690; 85025; 96361; 96374; 99284; 99285; J1885

== ENCOUNTER 2023-04-30 09:22 | Emergency (ER) | payer MEDICAID, SELFPAY ==
--- NOTE | ~2023-04-30 | US_ITS ---
EXAMINATION: US ABDOMEN LIMITED CLINICAL INFORMATION: Epigastric pain. COMPARISON: None available. TECHNIQUE: Real-time imaging of the right upper quadrant abdominal viscera. FINDINGS: PANCREAS: Normal. LIVER: Normal. The liver is normal in size. The liver contour is normal. Parenchymal echogenicity is normal. No focal hepatic lesion. There is no intrahepatic biliary duct dilatation seen. GALLBLADDER: Normal. The gallbladder is physiologically distended without evidence of stones, sludge, polyps, wall thickening or pericholecystic fluid. COMMON BILE DUCT: Normal in caliber measuring 0.3 cm in diameter. RIGHT KIDNEY: Normal. No hydronephrosis. No renal calculi or focal parenchymal lesions. The kidney measures 11.4 cm in maximum dimension. FREE FLUID: None. US/US abdomen limited IMPRESSION: Negative exam.
[2023-04-30 09:40] VITALS: BP 117/52; PULSE 79; RESP 17; TEMP 36.7; O2SAT 100; BMI 28.9
--- NOTE | 2023-04-30 09:50 | ECG_ITS ---
Test Reason : EPIGASTRIC PAIN Blood Pressure : / mmHG Vent. Rate : 071 BPM Atrial Rate : 071 BPM P-R Int : 146 ms QRS Dur : 080 ms QT Int : 394 ms P-R-T Axes : 060 040 009 degrees QTc Int : 428 ms Normal sinus rhythm with sinus arrhythmia Nonspecific ST and T wave abnormality Borderline ECG No previous ECGs available Referred By: Generic ED Physician Electronically Signed By:LILY DELGADO
[2023-04-30 10:11] LABS: MANUAL DIFF FLAG NO
[2023-04-30 10:13] LABS: Appearance Urine Cloudy; Color Urine Yellow; Glucose Urine UA Negative (Negative); Leukocyte Esterase Urine Negative (Negative); Nitrite Urine Negative (Negative); PH 6.5 (5.0-9.0); Urine Blood Negative (Negative); Urine Ketones Negative (Negative); Urine Protein Negative (Neg-Trace)
[2023-04-30 10:15] LABS: UPreg QC Valid YES; Urine Pregnancy NEGATIVE (NEGATIVE)
[2023-04-30 10:20] LABS: Basophils Percent Auto 0.2 % (0-2); Eosinophils Percent Auto 0.4 % (0-4); Hematocrit 37.7 % (37.0-47.0); Hemoglobin 12.4 g/dl (12.0-16.0); Imm Gran Abs Auto 0.02 X10*3/uL (0.00-0.03); Imm Gran Pct Auto 0.4 % (0.0-0.4); Lymphocytes Absolute Auto 1.4 X10*3/uL (1.2-4.9); Lymphocytes Percent Auto 27.5 % (20-40); Mean Corpuscular HGB Conc 32.9 g/dl (31.0-35.0); Mean Corpuscular Hemoglobin 27.7 pg (27.0-33.0); Mean Corpuscular Volume 84.2 fL (80.0-98.0); Mean Platelet Volume 9.8 fL (9.4-12.3); Monocytes Absolute Auto 0.2 X10*3/uL (0.1-1.2); Monocytes Percent Auto 3.8 % (2-11); Neutrophils Absolute Auto 3.5 x10*3/uL (2.0-8.3); Neutrophils Percent Auto 67.7 % (45-73); Platelet Count 284 X10*3/uL (160-400); Red Blood Count 4.48 X10*6/uL (4.20-5.50); Red Cell Distribution Width 13.4 % (11.0-16.0); White Blood Count 5.2 X10*3/uL (4.8-10.8)
[2023-04-30 10:28] LABS: Alanine Aminotransferase 17 U/L (0-31); Albumin Level 4.1 g/dL (3.5-5.0); Alkaline Phosphatase 85 U/L (39-117); Anion Gap 11 (12-20); Aspartate Amino Transferase 19 U/L (5-31); Bilirubin Direct < 0.2 mg/dL (0.0-0.5); Bilirubin Total 0.2 mg/dL (0.0-1.0); Blood Urea Nitrogen 7 mg/dL (9-16); Calcium 8.5 mg/dL (8.4-10.2); Carbon Dioxide 22 mmol/L (22-29); Chloride 110 mmol/L (96-108); Creatinine Clr Calc Pharmacy 115.9; Estimated Glomerular Filt Rate > 60; Glucose Random 98 mg/dL (60-115); Lipase 16 U/L (8-78); Potassium 3.2 mmol/L (3.3-5.1); Sodium 140 mmol/L (135-145); Total Protein 7.7 g/dL (6.5-8.0)
[2023-04-30 10:49] LABS: Influenza A PCR NEGATIVE (Negative); Influenza B PCR NEGATIVE (Negative); Resp Syncy Virus RNA Qual PCR NEGATIVE (Negative); SARS COV2 PCR INHOUSE NEGATIVE (Negative)
--- NOTE | 2023-04-30 12:07 | ED.ABDPAIN ---
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 No travel, antibiotic exposures, did eat at [employer] over the weekend. No sick contacts. Has never had this before. She feels she has a lot of acid in her stomach. She notes every time she eats her stomach hurts then she has nonbloody diarrhea. MD elicited complaint: abdominal pain Pertinent past history: none Onset (ago): day(s) (Thursday) Pain Consistency: constant Location: epigastric and RUQ Severity: moderate Quality: cramping and aching Radiation: none Migration to: no migration Exacerbating factors: eating Relieving factors: nothing Associated symptoms: nausea, vomiting and diarrhea Related Data Previous Rx's Medication Instructions Recorded amoxicillin 500 mg tablet 500 mg PO TID #15 tabs 06/26/22 cyclobenzaprine 10 mg tablet 10 mg PO TID PRN muscle spasm #20 03/19/23 tabs ibuprofen 600 mg tablet 600 mg PO Q6H PRN pain #30 tabs 03/19/23 omeprazole 20 mg capsule,delayed 20 mg PO DAILY #14 caps 04/30/23 release ondansetron 4 mg disintegrating 4 mg PO Q8H PRN nausea and 04/30/23 tablet vomiting #20 tabs Allergies Allergy/AdvReac Type Severity Reaction Status Date / Time latex [LATEX] AdvReac Mild RASH Verified 04/30/23 09:39 Review of Systems Review of Systems Constitutional : No Weight loss, No Fever, No Chills ENT/Mouth : No sore throat, No Rhinorrhea Eyes: No Swelling, No Redness Cardiovascular : No Chest Pain, No SOB, NoEdema Respiratory : No Cough, No Sputum, No Wheezing Gastrointestinal : Positive Nausea, Positive Vomiting, positive Diarrhea, positive abdominal Pain, No Hematochezia, No Melena Genitourinary : No Dysuria, No Urinary Frequency, No Hematuria, No Urgency Musculoskeletal : No joint pain, No Myalgias, No Joint Swelling Skin : No Skin Lesions, No rash Neuro : No Weakness, No Numbness, No Dizziness, No Headache Psych : No Anxiety/Panic, No Depression Heme/Lymph: No Bruising, No Lymphadenopathy Endocrine : No Polyuria, No Polydipsia All other systems reviewed and are negative. [facility] Past Medical History Attestation statement: The following information was validated with the patient. Source: old records reviewed Medical History (Updated 04/30/23 @ 13:23 by Emilia Nation DO) Carnitine deficiency No pertinent past medical history Surgical History H/O section Social History Social History Alcohol intake: never Patient Tobacco Use Status: Never used Tobacco Smoked in Last 30 Days: No Use of substances other than those prescribed or required for medical reasons: No Advance Directives: No Physical Exam ED Vital Signs: Vital Signs - 24 hr 04/30/23 09:40 04/30/23 12:53 04/30/23 13:00 Temperature 98.1 F Pulse Rate 79 81 Respiratory Rate 17 16 15 Blood Pressure 117/52 L 105/55 L Pulse Oximetry 100 99 Oxygen Delivery Method Room Air Room Air BMI result Body Mass Index 28.9 Appearance: Alert. Oriented X3. No acute distress. drinking sprite in room Eyes: Pupils equal, round and reactive to light. ENT: Pharynx normal. Neck: Normal inspection. Neck supple. CVS: Normal heart rate and rhythm. Pulses normal. Respiratory: No respiratory distress. Breath sounds normal. Abdomen: Soft and moderate epigastric and RUQ pain neg trevino's Skin: Skin warm and dry. Normal skin color. Normal skin turgor. Extremities: No lower extremity edema. No calf ttp Neuro: Oriented X 3. No motor deficit. No sensory deficit. Medical Decision Making Medical Decision Making [facility] [place] Narrative: 33 yo female with PMH of carnitine deficiency here with c/o upper abdominal pain and n/v/d no recent travel or antibiotic use. At this time will need basic labs, IVF, zofran, pepcid, morphine replete K, US to evaluate the gallbladder. Stools studies ordered. No prior hx of inflammatory bowel disease. Differential Diagnosis Differential Diagnoses: The differential diagnosis associated with the presentation includes gastritis, colitis, food toxicity, viral syndrome, biliary colit Admission/Observation Consideration of admission/observation: Escalation of care including admission/observation considered tolerating PO no diarrhea here labs and US reassuring stable for DC Lab Data MDM Lab Attestation statement: I reviewed the patient's lab results. 04/30/23 10:05 04/30/23 10:05 Labs: Lab Results 04/30/23 Range/Units 10:05 WBC 5.2 (4.8-10.8) X10*3/uL RBC 4.48 (4.20-5.50) X10*6/uL Hgb 12.4 (12.0-16.0) g/dl Hct 37.7 (37.0-47.0) % MCV 84.2 (80.0-98.0) fL MCH 27.7 (27.0-33.0) pg MCHC 32.9 (31.0-35.0) g/dl RDW 13.4 (11.0-16.0) % Plt Count 284 (160-400) X10*3/uL MPV 9.8 (9.4-12.3) fL Immature Gran % (Auto) 0.4 (0.0-0.4) % Neut % (Auto) 67.7 (45-73) % Lymph % (Auto) 27.5 (20-40) % Allen % (Auto) 3.8 (2-11) % Eos % (Auto) 0.4 (0-4) % Baso % (Auto) 0.2 (0-2) % Lymph # (Auto) 1.4 (1.2-4.9) X10*3/uL Allen # (Auto) 0.2 (0.1-1.2) X10*3/uL Eos # (Auto) 0.0 (0.0-0.4) X10*3/uL Baso # (Auto) 0.0 (0.0-0.2) X10*3/uL Abs Immat Gran (auto) 0.02 (0.00-0.03) X10*3/uL Absolute Neuts (auto) 3.5 (2.0-8.3) x10*3/uL Absolute Nucleated RBC 0.000 (0.0-0.012) X10*3/uL Nucleated RBC % (auto) 0.0 (0.0-0.2) /100WBC Sodium 140 (135-145) mmol/L Potassium 3.2 L (3.3-5.1) mmol/L Chloride 110 H (96-108) mmol/L Carbon Dioxide 22 (22-29) mmol/L Anion Gap 11 L (12-20) BUN 7 L (9-16) mg/dL Creatinine 0.64 (0.5-1.4) mg/dL Estim Creat Clear Calc 115.9 Estimated GFR > 60 Random Glucose 98 (60-115) mg/dL Calcium 8.5 (8.4-10.2) mg/dL Total Bilirubin 0.2 (0.0-1.0) mg/dL Direct Bilirubin < 0.2 (0.0-0.5) mg/dL AST 19 (5-31) U/L ALT 17 (0-31) U/L Alkaline Phosphatase 85 (39-117) U/L Total Protein 7.7 (6.5-8.0) g/dL Albumin 4.1 (3.5-5.0) g/dL Lipase 16 (8-78) U/L Urine Color Yellow Urine Appearance Cloudy Urine pH 6.5 (5.0-9.0) Ur Specific Virgie 1.020 (1.005-1.025) Urine Protein Negative (Neg-Trace) mg/dL Urine Glucose (UA) Negative (Negative) mg/dL Urine Ketones Negative (Negative) mg/dL Urine Blood Negative (Negative) Urine Nitrite Negative (Negative) Ur Leukocyte Esterase Negative (Negative) Urine Test NEGATIVE (NEGATIVE) Influenza Type A (PCR) NEGATIVE (Negative) Influenza Type B (PCR) NEGATIVE (Negative) RSV RNA Qual (PCR) NEGATIVE (Negative) SARS-CoV-2 RNA (RT-PCR) NEGATIVE (Negative) Independent Interpretation I performed an independent interpretation of an: EKG and Ultrasound (normal ) Interpretation: Rate: 71 Rhythm: NSR [place]: normal Normal P waves. Normal RAMAN. Normal QRS complex. ST T wave : normal no RAMESH qTC: normal prior studies: no acute ischemia The study has been interpreted contemporaneously by me. . Radiology Impression Discussion of test interpretation with radiology: I have reviewed the radiologist's reading. External Record Review External record reviewed: Outpatient record Prescription Management I considered prescription management with: Other Medications Administered Generic Name Dose Route Start Last Admin Trade Name Freq PRN Reason Stop Dose Admin Sodium Chloride 1,000 mls @ 999 mls/hr 04/30/23 12:30 04/30/23 12:59 Ns IV 04/30/23 13:30 999 mls/hr .Q1H1M SEGUNDO Administration Discontinued Medications Generic Name Dose Route Start Last Admin Trade Name Freq PRN Reason Stop Dose Admin Famotidine 20 mg 04/30/23 12:16 04/30/23 13:01 Famotidine/Pf 20 Mg/2 Ml Vial IVPUSH 04/30/23 12:17 20 mg ONCE ONE Administration Morphine Sulfate 4 mg 04/30/23 12:16 04/30/23 13:00 Morphine Sulfate 4 Mg/Ml Cartridge IVPUSH 04/30/23 12:17 4 mg ONCE ONE Administration Protocol Ondansetron HCl 4 mg 04/30/23 12:16 04/30/23 13:01 Ondansetron Hcl 4 Mg/2 Ml Vial IVPUSH 04/30/23 12:17 4 mg ONCE ONE Administration Potassium Chloride 40 meq 04/30/23 12:22 04/30/23 12:52 Potassium Chloride Packet 20 Meq Packet PO 04/30/23 12:23 40 meq ONCE ONE Administration Discharge Plan Discharge Clinical Impression: Acute hypokalemia Gastritis Qualifiers: Gastritis type: unspecified gastritis Chronicity: acute Gastritis bleeding: without bleeding Qualified Code(s): K29.00 - Acute gastritis without bleeding Diarrhea Qualifiers: Diarrhea type: unspecified type Qualified Code(s): R19.7 - Diarrhea, unspecified Patient Disposition: Home, Self-Care Instructions: Gastritis (ED), Hypokalemia (ED), Acute Diarrhea (ED) Additional Instructions: return for worsening symptoms, increased pain, fevers vomiting it is okay to take immodium. fill your prescriptions stay hydrated follow up with your primary care doctor Prescriptions: New omeprazole 20 mg capsule,delayed release(DR/EC) 20 mg PO DAILY Qty: 14 0RF ondansetron 4 mg tablet,disintegrating 4 mg PO Q8H PRN (Reason: nausea and vomiting) Qty: 20 0RF No Action amoxicillin 500 mg tablet 500 mg PO TID Qty: 15 0RF cyclobenzaprine 10 mg tablet 10 mg PO TID PRN (Reason: muscle spasm) Qty: 20 0RF ibuprofen 600 mg tablet 600 mg PO Q6H PRN (Reason: pain) Qty: 30 0RF Stand Alone Forms: Work/School Release
[2023-04-30] MEDS: Potassium Chloride Packet 20 MEQ PACKET 40 MEQ PO (12:52)
[2023-04-30 12:53] VITALS: BP 105/55; PULSE 81; RESP 16; O2SAT 99
[2023-04-30] MEDS: 0.9 % Sodium Chloride 1,000 ML 999 ML IV (12:59)
[2023-04-30 13:00] VITALS: RESP 15
[2023-04-30] MEDS: Morphine Sulfate 4 MG/ML CARTRIDGE IVPUSH (13:00)
[2023-04-30] MEDS: Famotidine/PF 20 MG/2 ML VIAL IVPUSH (13:01)
[2023-04-30] MEDS: ondansetron HCL 4 MG/2 ML VIAL IVPUSH (13:01)
--- NOTE | 2023-04-30 14:00 | PC.NURSE ---
md renteria aware no stool samples able to be collected as pt had no bm here- ok to d/c per md renteria
[2023-04-30 14:10] VITALS: BP 110/66; PULSE 75; RESP 15; TEMP 36.7; O2SAT 98
[2023-04-30 14:26] VITALS: BP 110/66; PULSE 68; RESP 16; TEMP 36.7; O2SAT 98
== END 2023-04-30 14:18 | disposition home or self-care (01) ==
PROVIDERS: Emergency Provider Emergency Medicine
DX: K29.00 Acute gastritis without bleeding (principal); R10.13 Epigastric pain; E87.6 Hypokalemia; I49.9 Cardiac arrhythmia, unspecified; R11.2 Nausea with vomiting, unspecified; Z11.52 Encounter for screening for COVID-19; Z79.899 Other long term (current) drug therapy; Z20.822 Contact with and (suspected) exposure to COVID-19
CPT/HCPCS: 0241U; 76705; 80048; 80076; 81003; 81025; 83690; 85025; 93005; 96361; 96374; 96375; 99284; 99285; J2270; J2405

== ENCOUNTER → 2023-04-30 09:50 | Outpatient (BNV) | payer MEDICAID, SELFPAY | PROVIDERS: Emergency Provider Emergency Medicine; Visit Provider Internal Medicine | DX: I49.9 Cardiac arrhythmia, unspecified (principal) | CPT/HCPCS: 93010 ==

== ENCOUNTER 2024-05-09 12:24 | Emergency (ER) | payer MEDICAID, SELFPAY ==
--- NOTE | ~2024-05-09 | CT_ITS ---
EXAMINATION: CT FACIAL BONES WITHOUT CONTRAST CLINICAL INFORMATION: Right jaw pain. Feels stuck mph. COMPARISON: None available. TECHNIQUE: Contiguous axial images through the maxillofacial bones using 3 mm collimation with bone and soft tissue algorithm. Sagittal and coronal reformatted images acquired. This CT examination was performed using dose optimization techniques as appropriate, variously including the following: *Automated exposure control *Adjustment of mA and/or kV according to patient size (this includes techniques or standardized protocols for targeted exams where dose is matched to indication/reason for exam; i.e. extremities or head) *Use of iterative reconstruction technique. DLP: 337.13 mGy centimeter. FINDINGS: Nasal bones, nasal septum and vomer are intact. Nasal cavity, vestibule and nostrils are aerated. The orbits are intact. No masses or fluid collections in the intraconal or the extraconal compartments. The eyeballs are intact. Zygomatic arcs are intact. Maxilla and pterygoid plates are intact. Mandible is intact. Temporal mandibular joints are intact with the normal alignment. No gross sialolithiasis. Mild desiccation seen the stylohyoid ligament, bilaterally.. No air-fluid levels in the paranasal sinuses. Tympanic cavities and mastoid cells are aerated. CT/CT facial bones wo IV con IMPRESSION: No acute fracture, maxillofacial. Electronically signed by: Ananda Rivas MD 05/09/2024 02:23 PM EDT
--- NOTE | ~2024-05-09 | CT_ITS ---
EXAMINATION: CT HEAD WITHOUT IV CONTRAST HISTORY: headache. TECHNIQUE: Unenhanced helical CT of the head was performed per standard departmental protocol. Coronal and sagittal reformats of the head were also evaluated. One or more of the following techniques was used for dose reduction: Automated exposure control, adjustment of the mA and/or kV according to patient size, use of iterative reconstruction technique. DLP: 575 mGy-cm COMPARISON: There are no prior studies for comparison. FINDINGS: BRAIN: The brain parenchyma is unremarkable. There is normal galaviz/white differentiation. The ventricular system is normal in size and configuration. There is no mass effect or midline shift. No intra- or extra-axial fluid collections are identified. SINUSES: The visualized paranasal sinuses are clear. The mastoid air cells and middle ear cavities are well pneumatized. ORBITS: The visualized orbits are unremarkable. BONES/SOFT TISSUES: The extracranial soft tissues are unremarkable. The calvarium is intact. No suspicious lytic or sclerotic lesions. CT/CT head/brain wo IV con IMPRESSION: Unremarkable unenhanced head CT. Electronically signed by: Eugene Bernal MD 05/09/2024 02:13 PM EDT
--- NOTE | ~2024-05-09 | CT_ITS ---
EXAMINATION: CT CERVICAL SPINE WITHOUT CONTRAST CLINICAL INFORMATION: Posterior neck pain. COMPARISON: None available. TECHNIQUE: Spiral CT imaging of the cervical spine performed in axial plane without contrast. Multiplanar reformatted images were constructed from the axial data set. This CT examination was performed using dose optimization techniques as appropriate, variously including the following: *Automated exposure control *Adjustment of mA and/or kV according to patient size (this includes techniques or standardized protocols for targeted exams where dose is matched to indication/reason for exam; i.e. extremities or head) *Use of iterative reconstruction technique FINDINGS: CORONAL ALIGNMENT: -There is a gentle right convex scoliosis. SAGITTAL ALIGNMENT: -There is a mild reversal of the normal lordosis centered at C4. C1-C2 AND CRANIOCERVICAL JUNCTION: -Intact and normally aligned. VERTEBRAL BODIES AND FACETS: -No fracture, compression deformity, or traumatic subluxation. No suspicious bone lesion. -Normal facet alignment without significant facet arthrosis. DISCS: -Preserved throughout. CENTRAL CANAL: -No evidence of high-grade central canal narrowing or large disc herniation allowing for modality limitations. PREVERTEBRAL AND PARAVERTEBRAL SOFT TISSUES: -Normal in appearance. -Normal-appearing thyroid. LUNG APICES: -Clear bilaterally. CT/CT cervical spine wo IV con IMPRESSION: 1. No CT evidence of acute cervical spine fracture or injury. 2. Minimal right convex scoliosis and mild reversal of the normal lordosis. Electronically signed by: Octavio Cardenas MD 05/09/2024 02:19 PM EDT
[2024-05-09 12:31] VITALS: BP 109/55; PULSE 85; RESP 16; TEMP 36.4; O2SAT 100; BMI 30.9
--- NOTE | 2024-05-09 12:45 | ED_ITS ---
HPI - General Adult General Chief complaint: Headache Stated complaint: Head Pain Time Seen by Provider: 05/09/24 19:23 History of Present Illness ED Provider: Cris GROVER narrative: The patient is a 34-year-old female who has a history of some kind of problems with her jaw, possibly temporomandibular joint problems. She reports that she has in the past had steroid injections for her jaw problems at a maxillofacial Clinic in [place]. The patient says that early last week she developed a gradual onset of a headache that got worse over several days. She also had worsening of pain near the right jaw and the right side of her neck and has felt dizzy. She has had a sore throat. She says she does not have a history of migraines or headaches. She does not know if she has had a fever. Related Data Previous Rx's ?Medication ?Instructions ?Recorded amoxicillin 500 mg tablet 500 mg PO TID #15 tabs 06/26/22 cyclobenzaprine 10 mg tablet 10 mg PO TID PRN muscle spasm #20 03/19/23 tabs ibuprofen 600 mg tablet 600 mg PO Q6H PRN pain #30 tabs 03/19/23 omeprazole 20 mg capsule,delayed 20 mg PO DAILY #14 caps 04/30/23 release ondansetron 4 mg disintegrating 4 mg PO Q8H PRN nausea and 04/30/23 tablet vomiting #20 tabs acetaminophen 500 mg capsule 1,000 mg (2 x 500 mg) PO Q8H PRN 05/09/24 fever or pain #14 caps Allergies Allergy/AdvReac Type Severity Reaction Status Date / Time latex [LATEX] AdvReac Mild RASH Verified 05/09/24 12:32 Review of Systems 2 Review of Systems: Yes all other systems are reviewed and are negative [facility] Past Medical History Medical History (Updated 05/10/24 @ 00:01 by Conor Webster) Carnitine deficiency No pertinent past medical history Surgical History H/O section Social History Social History Alcohol intake: never Patient Tobacco Use Status: Never used Tobacco Smoked in Last 30 Days: Yes Use of substances other than those prescribed or required for medical reasons: No Advance Directives: No Advance Directives Information Provided: No Patient : No Physical Exam ED Vital Signs: Vital Signs - 24 hr 05/09/24 19:33 05/09/24 21:29 Temperature 97.6 F 97.9 F Pulse Rate 65 67 Respiratory Rate 14 16 Blood Pressure 102/46 L 110/67 Pulse Oximetry 99 99 Oxygen Delivery Method Room Air Room Air BMI result Body Mass Index 30.9 Const Other: The patient was lying on a stretcher in a dark room. she seemed to prefer to keep her eyes closed and looked mildly uncomfortable. Her mental status seemed clear. HENMT Other: No obvious asymmetry to the patient's face. No facial swelling. Tympanic membranes are normal bilaterally. The posterior pharynx was slightly injected but not severely so. No tonsillar tissue was visualized. No exudate. The patient reported some discomfort with opening her mouth. She had tenderness at the left TMJ and just under the angle of the left jaw. Eyes General: appearance normal, both eyes and all related structures Eyelids: Yes eyelids normal Conjunctivae: conjunctivae normal Sclerae: sclerae normal Pupils: Equal, round and reactive pupils present EOM: EOMs intact bilaterally Neck Other: The patient reported significant tenderness along the right side of the neck, mostly under the right side of the jaw. I did not appreciate any definite soft tissue swelling. No adenopathy appreciated. The patient reported pain with moving her neck. Resp Effort & Inspection: normal respiratory effort Auscultation: clear to auscultation bilaterally Cardio Rate: regular rate Rhythm: regular rhythm Heart sounds: S1 normal heart sound present and S2 normal heart sound present Skin Other: Skin was unremarkable. No erythema or swelling to the skin of the face or the neck or elsewhere. Neuro Other: The patient was awake. She seems somewhat photophobic. She had a subdued demeanor but seemed to have a normal mental status otherwise. Cranial nerves seemed intact. She seems to have intact strength and sensation in her extremities. No obvious focal neurological deficit appreciated. Cranial nerves: Yes Equal, round and reactive pupils present Extrem General: Yes normal to inspection and Yes full ROM Course Course Course Narrative: RME: 34 yold female with TMJ presents to the ED for mutlipe complaints. first complain is posterior headache, neck pain radating right shoulder for 5 days without any trauma. Secondary complaint is hearing clicking sound in right jaw/pain and afraid it will get stuck. Patient third complaint is right lower molar dental pain. Physical exam positive for right lower molar with filling in the back with yellow collection. positive posterior cervical cercivcal tenderness on palpation. Scan ordered. no sublingual swelling, trismus, neck swelling, or jaw swelling. Medications Administered Discontinued Medications Generic Name Dose Route Start Last Admin Trade Name Davidq PRN Reason Stop Dose Admin Ketorolac Tromethamine 30 mg 05/09/24 20:01 05/09/24 20:14 Ketorolac Tromethamine 30 Mg/Ml Vial IM 05/09/24 20:02 30 mg ONCE ONE Administration Prochlorperazine Edisylate 10 mg 05/09/24 20:01 05/09/24 20:15 Prochlorperazine Edisylate 10 Mg/2 Ml Vial IM 05/09/24 20:02 10 mg ONCE ONE Administration Medical Decision Making Medical Decision Making [facility] Narrative: The patient is a 34-year-old woman who presents with a headache and with pain in the right side of her face and a sore throat. A noncontrast CT of the face, head, and cervical spine were ordered at triage and these are all negative. She has a negative rapid strep and a negative viral panel. CBC and CRP are unremarkable. the patient has clinical appearance suggested she might have a migraine. She also seems to have a lot of pain in the right side of her neck. I do not have any significant suspicion for an acute infectious process given her unremarkable workup and her clinical appearance. She seems to have a history of some kind of a jaw problem which I suspect is TMJ syndrome. She was treated with IM ketorolac and prochlorperazine with the improvement in her symptoms. I think she is well enough for discharge. Apparently she has been seen at a maxillofacial Clinic in [place] in the past and she is advised to follow up with them once again. Lab Data 05/09/24 20:14 05/09/24 20:14 Labs: Lab Results 05/09/24 05/09/24 Range/Units 20:08 20:14 WBC 8.8 (4.8-10.8) X10*3/uL RBC 4.44 (4.20-5.50) X10*6/uL Hgb 12.7 (12.0-16.0) g/dl Hct 38.7 (37.0-47.0) % MCV 87.2 (80.0-98.0) fL MCH 28.6 (27.0-33.0) pg MCHC 32.8 (31.0-35.0) g/dl RDW 13.2 (11.0-16.0) % Plt Count 261 (160-400) X10*3/uL MPV 9.9 (9.4-12.3) fL Immature Gran % (Auto) 0.3 (0.0-0.4) % Neut % (Auto) 51.7 (45-73) % Lymph % (Auto) 40.1 H (20-40) % Giles % (Auto) 6.1 (2-11) % Eos % (Auto) 1.5 (0-4) % Baso % (Auto) 0.3 (0-2) % Lymph # (Auto) 3.5 (1.2-4.9) X10*3/uL Giles # (Auto) 0.5 (0.1-1.2) X10*3/uL Eos # (Auto) 0.1 (0.0-0.4) X10*3/uL Baso # (Auto) 0.0 (0.0-0.2) X10*3/uL Abs Immat Gran (auto) 0.03 (0.00-0.03) X10*3/uL Absolute Neuts (auto) 4.5 (2.0-8.3) x10*3/uL Absolute Nucleated RBC 0.000 (0.0-0.012) X10*3/uL Nucleated RBC % (auto) 0.0 (0.0-0.2) /100WBC Sodium 141 (135-145) mmol/L Potassium 3.7 (3.3-5.1) mmol/L Chloride 107 (96-108) mmol/L Carbon Dioxide 26 (22-29) mmol/L Anion Gap 12 (12-20) BUN 9 (9-16) mg/dL Creatinine 0.68 (0.5-1.4) mg/dL Estim Creat Clear Calc 107.4 Estimated GFR > 60 Random Glucose 86 (60-115) mg/dL Calcium 9.3 D (8.4-10.2) mg/dL C-Reactive Protein 0.44 (< or = 0.50) mg/dL Beta HCG, Quant < 2 mIU/mL Influenza Type A (PCR) NEGATIVE (Negative) Influenza Type B (PCR) NEGATIVE (Negative) RSV RNA Qual (PCR) NEGATIVE (Negative) SARS-CoV-2 RNA (RT-PCR) NEGATIVE (Negative) S. pyogenes GrpA ARSENIO Negative (Negative) Discharge Plan Discharge Clinical Impression: Headache, Jaw pain Patient Disposition: Home, Self-Care Additional Instructions: your testing in the emergency room today is very reassuring. Please use acetaminophen ( Tylenol) as needed for pain. Please contact your maxillofacial office in the morning to arrange follow up and further evaluation. Also follow up with your regular doctor. Return to the emergency room if significantly worse. Prescriptions: New acetaminophen 500 mg capsule 1,000 mg PO Q8H PRN (Reason: fever or pain) Qty: 14 0RF No Action amoxicillin 500 mg tablet 500 mg PO TID Qty: 15 0RF cyclobenzaprine 10 mg tablet 10 mg PO TID PRN (Reason: muscle spasm) Qty: 20 0RF ibuprofen 600 mg tablet 600 mg PO Q6H PRN (Reason: pain) Qty: 30 0RF omeprazole 20 mg capsule,delayed release(DR/EC) 20 mg PO DAILY Qty: 14 0RF ondansetron 4 mg tablet,disintegrating 4 mg PO Q8H PRN (Reason: nausea and vomiting) Qty: 20 0RF Referrals: [facility] [Primary Care Provider] - Interventions: ED Discharge Assessment Last Done: 05/09/24 21:29 Discharge Date/Time: 05/09/24 21:31 Print Language: [place]
--- OUTSIDE RECORDS SUMMARY | 2024-05-09 19:23 | XMS_ITS | Clinical Summary ---
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 Role Phone Yovanny Joya MD Primary Care Provider [phone] Surgical History Surgery Date Site/Laterality Comments SECTION 01/20/2015 PROCEDURE: HISTORICAL DELIVERY; COMMENT: Failed Induction Medical History Medical History Date Comments Asthma DX:Asthma Hypotension DX:Hypotension; COMMENT: Patient reported Family History Medical History Relation Name Comments No Known Problems Brother Other cancer Father Reports blood cancer No Known Problems Maternal Grandfather Alzheimer's disease Maternal Grandmother Arthritis Mother Depression Mother severe Hypertension Mother Ovarian cancer Mother No Known Problems Paternal Grandfather No Known Problems Paternal Grandmother Asthma Sister Eczema Son Breast cancer Neg Hx Colon cancer Neg Hx Pancreatic cancer Neg Hx Prostate cancer Neg Hx Uterine cancer Neg Hx Relation Name Status Comments Brother Alive Father Maternal Grandfather Maternal Grandmother Mother Alive Paternal Grandfather Paternal Grandmother Sister Alive Son Alive Social History Tobacco Use Types Packs/Day Years Used Date Smoking Tobacco: Former Cigarettes Smokeless Tobacco: Never Alcohol Use Standard Drinks/Week Comments Not Currently 0.8 (1 standard drink = 0.6 oz p ure alcohol) Comments Unknown Sex and Gender Information Value Date Recorded Sex Assigned at Not on file Legal Sex Female 8:58 AM EST Gender Identity Not on file Sexual Orientation Not on file Obstetrics History Last Filed Vital Signs Vital Sign Reading Time Taken Comments Blood Pressure 101/58 02/28/2022 2:27 PM EST Pulse 89 02/28/2022 2:27 PM EST Temperature - - Respiratory Rate - - Oxygen Saturation - - Inhaled Oxygen Concentration - - Weight 55.2 kg (121 lb 9.6 oz) 02/28/2022 2:27 P M EST Height - - Body Mass Index - - Plan of Treatment Health Maintenance Due Date Last Done Comments Hepatitis B Vaccines (1 of 3 - 19+ 3-dose series) 2009 Depression Screening 01/12/2022 HIV Screening 01/12/2022 Hepatitis C Screening 01/12/2022 Social Influencers of Health Screening 01/12/2022 Cervical Cancer Screening: P ap Smear 07/20/2023 07/19/2020, 01/11/2018, 01/11/2018 COVID-19 Vaccine ( - 2023-2 5 season) 2023 Influenza Vaccine (#1) 2023 10/16/2016 DTaP,Tdap,and Td Vaccines (3 - Td or Tdap) 03/06/2031 03/06/2021, 02/05/2017 HIB Vaccines Aged Out No longer eligi ble based on patient's age to complete this topic HPV Vaccines Aged Out No longer eligi ble based on patient's age to complete this topic Hepatitis A Vaccines Aged Out No long er eligible based on patient's age to complete this topic IPV Vaccines Aged Out No longer eligi ble based on patient's age to complete this topic MMR Vaccines Aged Out No longer eligi ble based on patient's age to complete this topic Meningococcal ACWY Vaccine Aged Out N o longer eligible based on patient's age to complete this topic Meningococcal B Vacine Aged Out No lo nger eligible based on patient's age to complete this topic Pneumococcal Vaccine: Pediatrics (0 to 5 Years) and At-Risk Patients (6 to 64 Years) Aged Out No longer eligible b ased on patient's age to complete this topic RSV Immunization Patients Under 20 months Aged Out No longer eligible b ased on patient's age to complete this topic Varicella Vaccines Aged Out No longer eligible based on patient's age to complete this topic Procedures Procedure Name Priority Date/Time Associated Diagnosis Comments PAP SMEAR Routine 07/19/2020 from Last 3 Months or Most Recently Relevant to Health Maintenance Results * Pap smear (07/19/2020) 07/19/2020 Narrative HISTORICAL TESTING LAB RESULTING AGENCY - 07/27/2020 2:21 PM EDT [id number] THINPREP PAP, IMAGED: NEGATIVE FOR SQUAMOUS INTRAEPITHELIAL LESION AND MALIGNANCY . CLUE CELLS ARE PRESENT. PRANEETH LOPEZ , CT(ASCP) (CASE ELECTRONICALLY SIGNED 07 27 2020) RESULT OF APTIMA HIGH RISK HPV ASSAY: HIGH RISK HPV: ??NEGATIVE (SEROTYPES 16,18,31,33,35,39,45,51,52,56,58,59,66,68) COMPLETED ON 2020-07-24 ADEQUACY: SATISFACTORY ENDOCERVICAL/TRANSFORMATION ZONE COMPONENT ABSENT. SOURCE: THINPREP PAP HPV ANY DX: ??REFLEX 16 AND 18, CERVICAL, IMAGED CLINICAL INFORMATION: HPV ANY DIAGNOSIS. HORMONES, Z12.4, PAP HX NEG 2018. 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
--- OUTSIDE RECORDS SUMMARY | 2024-05-09 19:23 | XMS_ITS | Clinical Summary ---
Author Organization [facility] Address [address] [place] [address] Care Team Providers Care Voice Over Artist Name Role Phone Hiral Cardona PA-C Primary Care Provider Source Comments PLEASE NOTE, if this patient is a minor, it may be UNLAWFUL to discuss sensitive information that is contained in these records (such as FAMILY PLANNING, MENTAL HEALTH or SUBSTANCE ABUSE) with the minor patient's parent or other person without the patient's specific authorization.[facility] Allergies Active Allergy Reactions Criticality Noted Date Comments Latex Rash 12/05/2014 Medications VITAMIN PLUS LOW IRON 27 mg iron- 1 mg tab Take 1 Tablet by mouth once daily 3 Active VITAMIN B-6 25 mg tablet Take 25 mg by mouth 3 (three) times daily 3 Active acetaminophen (TYLENOL) 500 mg tablet Take 2 Tablets by mouth 3 (three) times daily as needed for pain 60 Tablet 1 3 Active etonogestreL-et hinyl estradioL (HALOETTE) 0.12-0.015 mg/24 hr vaginal ringIndications :Family planning INSERT 1 RING VAGINALLY EVERY 28 DAYS 1 Each 11 4 Active famotidine (PEPCID) 20 mg tabletIndicatio ns:Gastroesopha geal reflux disease, unspecified whether esophagitis present Take 1 Tablet by mouth 2 (two) times daily 90 Tablet 1 4 Active hydrOXYzine HCL (ATARAX) 25 mg tabletIndicatio ns:Generalized anxiety disorder Take 1 Tablet by mouth 3 (three) times daily as needed for anxiety for up to 180 days 90 Tablet 5 5 10/17/19 25 Active sertraline (ZOLOFT) 50 mg tabletIndicatio ns:Generalized anxiety disorder Take 1 Tablet by mouth once daily for 180 days 30 Tablet 5 5 10/17/19 25 Active hydrOXYzine HCL (ATARAX) 25 mg tabletIndicatio ns:Generalized anxiety disorder Take 1 Tablet by mouth 3 (three) times daily as needed for anxiety for up to 180 days 90 Tablet 5 4 04/20/19 25 Discontinu ed(Reorder (E-Cancel Not Sent)) sertraline (ZOLOFT) 50 mg tabletIndicatio ns:Generalized anxiety disorder Take 1 Tablet by mouth once daily for 180 days 30 Tablet 5 4 04/20/19 25 Discontinu ed(Reorder (E-Cancel Not Sent)) Active Problems Problem Noted Date Diagnosed Date Chronic pelvic pain in female 06/25/2023 Myofascial pain syndrome 06/25/2023 Screening for malignant neoplasm of cervix perfo rmed 06/25/2023 Trigger point of abdomen 06/25/2023 Depression 03/31/2023 Generalized anxiety disorder 03/31/2023 Uses Czech as primary spoken language 01/16/20 23 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 If symptoms persist patient will have echo and may need Holter monitor. Patient has dizziness which is most likely due to low blood pressure. Patient taking a supplement ECHO 03/02/17- LV- Normal size,thickness and systolic function, Estimated LVEF 60%, No significant valve abnormalities, No prior study available Back pain 07/05/2015 Primary carnitine deficiency 03/13/2015 Overview (12/19/2016): She was seen at [facility] as her 1st baby boy was flagged by [place] new born screening prog for low CO. She had confirmatory lab testing and started on Carnitine 100mg/kg( Levocarnitine 330mg tab, 5 tab po TID. [place] [facility] to confirm Dx. Also recommend Cardiology evaluation. F/u in 4 mo. Patient seen by cardiology Dr. Johnson, no cardiomyopathy, Patient may need Holter monitor in the future if palpitations persist, ECHO discussed and patient to continue supplement at lower dose Mild intermittent asthma without complication Overview (04/27/2017): [facility] 04/23/2017 Lungs aooear clear. No Pleural effusion or pneumothorax. Heart, mediastinum, and diaphragm appear una. Bones ae unremarkable Negative study Uses inhalers as needed. Last asthma attack prior to current pragnancy Anemia 12/05/2014 Resolved Problems Problem Noted Date Diagnosed Date Resolved Date Currently ([facility]) 12/05/2014 03/14/2015 Overview (12/05/2014): STACY 01/09/15. Following with OB at [facility], asking for referral from PCP. Encounters Date Type Department Care Team Description 04/19/2024 3:00 PM EDT / Visits [address] [phone] Abbey Olivas Johanna, WAN Generalized anxiety disorder (Primary Dx); Unspecified mood (affective) disorder (HCC-CMS); Other depression from Last 3 Months Immunizations Immunization Administration Dates Next Due Flu, Preservative Free 10/16/2016 Hep B,adult,adjuvanted (HEPLISAV) 07/28/2023, PNEUMOCOCCAL CONJUGATE PCV 20 (Prevnar) 06/25/19 24 PPD 11/24/2016 TDAP 07/17/2022,03/06/2021,02/05/2017 Family History Medical History Relation Name Comments Bipolar disorder Mother Cancer Mother ? cancer, s/p h ysterectomy Depression Mother Hypertension Mother Mental illness Mother Schizophrenia Mother Asthma Sister Relation Name Status Comments Father Mother Alive Sister Alive Social History Tobacco Use Types Packs/Day Years Used Date Smoking Tobacco: Former Cigarettes 0.5 15 Passive Smoke Exposure: Never Smokeless Tobacco: Never Tobacco Cessation:Counseling Given: Yes Comments:5-6 cigarettes Alcohol Use Standard Drinks/Week Comments Not Currently 16 (1 standard drink = 0.6 oz pu re alcohol) on weekends Social Connections Answer Date Recorded Connectedness 1 06/25/2023 Financial Resource Strain Answer Date R ecorded Financial Resource Strain 1 2023 Stress Answer Date Recorded Stress 1 06/25/2023 Physical Activity Answer Date Recorded Physical Activity 0 09/27/2018 Food Insecurity Answer Date Recorded Food 1 06/25/2023 Transportation Needs Answer Date Record ed Transportation 1 06/25/2023 Housing Stability Answer Date Recorded Housing 1 06/25/2023 Safety and Environment Answer Date Shadi rded Safety 1 06/25/2023 Utilities Answer Date Recorded Utilities 1 06/25/2023 Employment Answer Date Recorded Employment 0 09/27/2018 Comments No Sex and Gender Information Value Date Recorded Sex Assigned at Female 11/24/2016 7:20 AM PDT Legal Sex Female 12:21 PM PDT Gender Identity Female 11/24/2016 7:20 AM PDT Sexual Orientation Straight 06/25/2023 10 :53 AM PDT Last Filed Vital Signs Vital Sign Reading Time Taken Comments Blood Pressure 110/68 07/28/2023 3:32 PM EDT Pulse 86 07/28/2023 3:32 PM EDT Temperature 36.5 ??C (97.7 ??F) 07/28/2023 3:32 PM ED T Respiratory Rate 16 07/28/2023 3:32 PM EDT Oxygen Saturation 99% 07/28/2023 3:32 PM EDT Inhaled Oxygen Concentration - - Weight 70.3 kg (155 lb) 07/28/2023 3:32 PM EDT Height 157.5 cm (5' 2 ) 07/28/2023 3:32 PM EDT Body Mass Index 28.35 07/28/2023 3:32 PM EDT Plan of Treatment Upcoming Encounters Date Type Department Care Team (Late st Contact Info) Description 07/12/2024 3:00 PM EDT / Visits [facility] [address] [place] [id number] Abbey Olivas [address] [place] [address] Jazmyn Smith, PMHNP [address] [place] [address] Health Maintenance Due Date Last Done Comments Anxiety Screening 1990 HPV Screening 1990 Pap + HPV 1990 Cervical Cancer Screening 2011 Pap Smear 2011 Diabetes Screening 03/06/2022 03/06/2021, 0 04/19/2018, 07/13/2015, Additional history exists Depression Monitoring 09/25/2023 06/25/2023 , 04/13/2023, 02/25/2023, Additional history exists [id number] ( season) 2023 Imm-Influenza (#1) 2023 10/16/2016 Dental BW 11/02/2023 10/30/2022, 05/01/2022 Dental Examination 11/02/2023 10/30/2022, 05/01/2022 Dental Perio Charting 11/02/2023 10/30/2022, 023 Dental Prophy 11/02/2023 10/30/2022, 05/01/2022 Alcohol and Drug Screen 02/10/2024 06/25/19 24, 02/25/2023, 03/07/2022, Additional history exists Annual Preventive Care Visit 06/24/2024, 03/07/2022, 03/06/2021, Additional history exists Relationship Safety Screening/Counseling 06/24/2024 06/25/2023, 11/12/2022, 03/07/2022, Additional history exists Hypertension Screening (#1) 07/27/2024 Tobacco Screening 07/27/2024 07/28/2023, , 01/31/2019 Dental FMX/Pano 12/18/2027 12/15/2022 Imm-DTaP/Tdap/Td (4 - Td or Tdap) 07/17/2032 07/17/2022, 03/06/2021, 02/05/2017 Imm-Pneumococcal Completed 06/25/2023 Imm-Hepatitis B Completed 07/28/2023, 06/25/2023 HIV Screening Completed 07/29/2023, 04/19/2018 Hepatitis C Screening Completed 07/29/2023 Cervical Ablation/Cold-Knife Conization Discontinued Cervical Cryotherapy Discontinued Colposcopy Discontinued Endometrial Biopsy Discontinued Excision/Leep Discontinued HPV Genotyping Discontinued Vaginal Pap Discontinued Vulvoscopy Discontinued Procedures Procedure Name Priority Date/Time Associated Diagnosis Comments HIV 1/2 AG & AB W/RFLX (4TH GEN) Routine 07/29/2023 9:20 AM EDT HEPATITIS C AB W/RFLX HCV RNA, QT, RT PCR Routine 07/29/2023 9:20 AM EDT PANORAMIC RADIOGRAPHIC IMAGE Routine 12/15/2022 2:20 PM EST Encounter for dental examination BITEWINGS - FOUR RADIOGRAPHIC IMAGES Routine 10/30/2022 1:40 PM EDT Caries PROPHYLAXIS - ADULT Routine 10/30/2022 1 :40 PM EDT Caries PERIODIC ORAL EVALUATION ESTABLISHED PATIENT Routine 10/30/2022 1:40 PM EDT Caries COMP PERIODONTAL EVALUATION - NEW/EST PATIENT Routine 05/01/2022 3:00 PM EDT Encounter for dental examination COMPREHENSIVE METABOLIC PANEL Routine 03/06/2021 3:37 PM EST Primary carnitine deficiency (HCC) Other iron deficiency anemia from Last 3 Months or Most Recently Relevant to Health Maintenance Results * HEPATITIS C AB W/RFLX HCV RNA, QT, RT PCR (07/29/2023 9:20 AM EDT) HEPATITIS C ANTIBODY NON-REACT BRAULIO NON-REACT BRAULIO [facility] Comment: HCV antibody was non-reactive. There is no laboratory evidence of HCV infection. In most cases, no further action is required. However, if recent HCV exposure is suspected, a test for HCV RNA (test code 90816) is suggested. For additional information please refer to http://education.Compass-EOS/faq/VPG22t9 (This link is being provided for informational/ educational purposes only.) 07/29/2023 9:20 AM EDT 07/29/2023 9:20 AM EDT Narrative [facility] - 08/02/2023 2:24 PM EDT SPLIT 06/25/2023 FROM [id number] Hiral Cardona PA-C LAB - BLOOD DRAW Edited Resu lt - Final [facility] [address] [address], [facility] [address] [address] * HIV 1/2 AG & AB W/RFLX (4TH GEN) (07/29/2023 9:20 AM EDT) HIV AG/AB, 4TH GEN NON-REAC TIVE NON-REAC TIVE [facility] Comment: HIV-1 antigen and HIV-1/HIV-2 antibodies were not detected. There is no laboratory evidence of HIV infection. PLEASE NOTE: This information has been disclosed to you from records whose confidentiality may be protected by state law. ??If your state requires such protection, then the state law prohibits you from making any further disclosure of the information without the specific written consent of the person to whom it pertains, or as otherwise permitted by law. A general authorization for the release of medical or other information is NOT sufficient for this purpose. ?? For additional information please refer to http://education.Compass-EOS/faq/PDP773 (This link is being provided for informational/ educational purposes only.) The performance of this assay has not been clinically validated in patients less than 2 years old. 07/29/2023 9:20 AM EDT 07/29/2023 9:20 AM EDT Narrative [facility] - 08/02/2023 2:24 PM EDT SPLIT 06/25/2023 FROM [id number] us Hiral Cardona PA-C LAB - BLOOD DRAW Final Resul t [facility] [address] [address], [facility] [address] [address] * COMPREHENSIVE METABOLIC PANEL (03/06/2021 3:37 PM EST) GLUCOSE 88 65 - 99 mg/dL [facility] Comment: ?Fasting reference interval UREA NITROGEN (BUN) 9 7 - 25 mg/dL [facility] CREATININE (blood) 0.78 0.50 - 1.10 mg/dL [facility] GFR ESTIMATED 101 > OR = 60 mL/min/1 .73m2 [facility] EGFR 117 > OR = 60 mL/min/1 .73m2 [facility] BUN/CREATININE RATIO NOT APPLICABLE 6 - 22 [facility] SODIUM 140 135 - 146 mmol/L [facility] POTASSIUM 3.6 3.5 - 5.3 mmol/L [facility] CHLORIDE 102 98 - 110 mmol/L [facility] CARBON DIOXIDE 29 20 - 32 mmol/L [facility] CALCIUM 9.3 8.6 - 10.2 mg/dL [facility] PROTEIN, TOTAL 7.5 6.1 - 8.1 g/dL [facility] ALBUMIN 4.7 3.6 - 5.1 g/dL [facility] GLOBULIN 2.8 1.9 - 3.7 g/dL (calc) [facility] ALBUMIN/GLOBUL IN RATIO 1.7 1.0 - 2.5 (calc) [facility] BILIRUBIN, TOTAL 0.4 0.2 - 1.2 mg/dL [facility] ALKALINE PHOSPHATASE 74 31 - 125 U/L [facility] AST 19 10 - 30 U/L [facility] ALT 17 6 - 29 U/L [facility] Blood Blood / Unknown 03/06/2021 3 :37 PM EST 03/06/2021 3:37 PM EST us Hiral Cardona PA-C LAB - BLOOD DRAW Final Resul t [facility] [address] [address], [employer] [facility] [address] [address] from Last 3 Months or Most Recently Relevant to Health Maintenance Insurance [employer] DENTAL [facility] DENTAL [facility] [address] [employer] Care Teams Voice Over Artist Relationship Specialty Start Date End Date Hiral Cardona PA-C [address] [place] [address] PCP - General FAMILY MEDICINETIFFANIE 08/30/20
[2024-05-09 19:33] VITALS: BP 102/46; PULSE 65; RESP 14; TEMP 36.4; O2SAT 99
[2024-05-09] MEDS: Ketorolac Tromethamine 30 MG/ML VIAL IM (20:14)
[2024-05-09] MEDS: Prochlorperazine Edisylate 10 MG/2 ML VIAL IM (20:15)
[2024-05-09 20:19] LABS: Basophils Percent Auto 0.3 % (0-2); Eosinophils Absolute Auto 0.1 X10*3/uL (0.0-0.4); Eosinophils Percent Auto 1.5 % (0-4); Hematocrit 38.7 % (37.0-47.0); Hemoglobin 12.7 g/dl (12.0-16.0); Imm Gran Abs Auto 0.03 X10*3/uL (0.00-0.03); Imm Gran Pct Auto 0.3 % (0.0-0.4); Lymphocytes Absolute Auto 3.5 X10*3/uL (1.2-4.9); Lymphocytes Percent Auto 40.1 % (20-40); MANUAL DIFF FLAG NO; Mean Corpuscular HGB Conc 32.8 g/dl (31.0-35.0); Mean Corpuscular Hemoglobin 28.6 pg (27.0-33.0); Mean Corpuscular Volume 87.2 fL (80.0-98.0); Mean Platelet Volume 9.9 fL (9.4-12.3); Monocytes Absolute Auto 0.5 X10*3/uL (0.1-1.2); Monocytes Percent Auto 6.1 % (2-11); Neutrophils Absolute Auto 4.5 x10*3/uL (2.0-8.3); Neutrophils Percent Auto 51.7 % (45-73); Platelet Count 261 X10*3/uL (160-400); Red Blood Count 4.44 X10*6/uL (4.20-5.50); Red Cell Distribution Width 13.2 % (11.0-16.0); White Blood Count 8.8 X10*3/uL (4.8-10.8)
[2024-05-09 20:23] LABS: IDNOW Serial# 6674DD1D; Strep A Nucleic Acid Negative (Negative)
[2024-05-09 20:39] LABS: Anion Gap 12 (12-20); Blood Urea Nitrogen 9 mg/dL (9-16); C Reactive Protein 0.44 mg/dL (< or = 0.50); Calcium 9.3 mg/dL (8.4-10.2); Carbon Dioxide 26 mmol/L (22-29); Chloride 107 mmol/L (96-108); Creatinine Clr Calc Pharmacy 107.4; Estimated Glomerular Filt Rate > 60; Glucose Random 86 mg/dL (60-115); Potassium 3.7 mmol/L (3.3-5.1); Sodium 141 mmol/L (135-145)
[2024-05-09 20:40] LABS: HCG Quantitative < 2 mIU/mL
[2024-05-09 20:55] LABS: Influenza A PCR NEGATIVE (Negative); Influenza B PCR NEGATIVE (Negative); Resp Syncy Virus RNA Qual PCR NEGATIVE (Negative); SARS COV2 PCR INHOUSE NEGATIVE (Negative)
[2024-05-09 21:29] VITALS: BP 110/67; PULSE 67; RESP 16; TEMP 36.6; O2SAT 99
== END 2024-05-09 21:31 | disposition home or self-care (01) ==
PROVIDERS: Emergency Provider Emergency Medicine; PCP Dentist General Practice
DX: R51.9 Headache, unspecified (principal); R68.84 Jaw pain; M54.2 Cervicalgia; J02.9 Acute pharyngitis, unspecified; R42 Dizziness and giddiness; Z03.818 Encounter for observation for suspected exposure to other biological agents ruled out
CPT/HCPCS: 0241U; 36415; 70450; 70486; 72125; 80048; 84702; 85025; 86140; 87651; 96372; 99284; J0737; J1885

== ENCOUNTER → 2024-05-09 12:41 | Outpatient (BNV) | payer MEDICAID, SELFPAY | PROVIDERS: PCP Dentist General Practice; Visit Provider Radiology Diagnostic Radiology | DX: M54.2 Cervicalgia (principal); R68.84 Jaw pain; R51.9 Headache, unspecified | CPT/HCPCS: 70450; 70486; 72125 ==

== ENCOUNTER 2024-10-03 13:45 | Emergency (ER) | payer MEDICAID, SELFPAY ==
[2024-10-03 14:35] VITALS: BP 119/68; PULSE 63; RESP 18; TEMP 36.6; O2SAT 100; BMI 28.8
--- NOTE | 2024-10-03 14:39 | ED.GENADULT ---
HPI - General Adult General Chief complaint: Headache Stated complaint: headache, eye pain Time Seen by Provider: 10/03/24 15:00 Source: patient, RN notes reviewed, old records reviewed and steward/stewardess second class Mode of arrival: ambulatory Limitations: language barrier History of Present Illness ED Provider: Elizabeth HPI narrative: Patient is a 34-year-old English speaking female presenting to the emergency department with complaint of headache, photophobia and nausea since yesterday. He reports history of migraines. Also complains of chills and generalized body aches. States mother has had similar symptoms. Used an unknown vitc-ito-yndsood medication with little relief of symptoms. Denies any abdominal pain, vomiting or diarrhea. Denies worst headache of life, denies sudden onset, not worse with standing, not worst in the a.m.. MD complaint: headache, body aches Related Data Previous Rx's ?Medication ?Instructions ?Recorded amoxicillin 500 mg tablet 500 mg PO TID #15 tabs 06/26/22 cyclobenzaprine 10 mg tablet 10 mg PO TID PRN muscle spasm #20 03/19/23 tabs ibuprofen 600 mg tablet 600 mg PO Q6H PRN pain #30 tabs 03/19/23 omeprazole 20 mg capsule,delayed 20 mg PO DAILY #14 caps 04/30/23 release ondansetron 4 mg disintegrating 4 mg PO Q8H PRN nausea and 04/30/23 tablet vomiting #20 tabs acetaminophen 500 mg capsule 1,000 mg (2 x 500 mg) PO Q8H PRN 05/09/24 fever or pain #14 caps Allergies Allergy/AdvReac Type Severity Reaction Status Date / Time latex (LATEX) AdvReac Mild RASH Verified 10/03/24 14:37 Review of Systems Review of Systems: As per HPI Yes all other systems are reviewed and are negative Constitutional: Constitutional: Reports as per HPI [facility] Past Medical History Medical History (Updated 10/03/24 @ 17:26 by Blanca Johnson NP) Carnitine deficiency No pertinent past medical history Surgical History H/O section Social History Social History Alcohol intake: never Patient Tobacco Use Status: Never used Tobacco Advance Directives: No Advance Directives Information Provided: No Do you have a plan to hurt others: No Plan Physical Exam ED Vital Signs: Vital Signs - 24 hr 10/03/24 14:35 Temperature 97.8 F Pulse Rate 63 Respiratory Rate 18 Blood Pressure 119/68 Pulse Oximetry 100 Oxygen Delivery Method Room Air BMI result Body Mass Index 28.8 Vital signs have been reviewed and appear to be correct. Blood pressure normal. Heart rate normal. Respiratory rate normal. Temperature normal. Oxygen saturation normal. Const General: cooperative, healthy appearing and no acute distress Orientation/consciousness: oriented to person, oriented to place, oriented to time and patient oriented x3 Limitations: no limitations HENNV Head: Yes normocephalic and Yes atraumatic Ears: external ears normal General nose exam: Normal external nose present Face and sinus: Yes face symmetric Mouth: oropharynx normal and moist mucous membranes Throat: Yes uvula midline Eyes Pupils: Equal, round and reactive pupils present Neck Neck: Yes normal visual inspection and Yes supple Resp Effort & Inspection: normal respiratory effort and able to speak in complete sentences Auscultation: clear to auscultation bilaterally Cardio Rate: regular rate Rhythm: regular rhythm Heart sounds: S1 normal heart sound present and S2 normal heart sound present GI Palpation (GI): Soft to palpation and nontender Auscultation: normoactive bowel sounds General: Yes no CVA tenderness Back/Spine/Pelvis Back: no CVA tenderness Skin General skin exam: elasticity normal and turgor normal Neuro General: oriented to person, oriented to place, oriented to time, patient oriented x3, moves all extremities, no focal motor deficits and CN's II-XI intact bilaterally Cranial nerves: Yes Equal, round and reactive pupils present Cognition (Neuro): normal cognition Extrem General: Yes full ROM, Yes no pedal edema and Yes no calf tenderness Psych Mental Status: mental status grossly normal Affect: normal affect Thought process: Normal thought process present Course Course Course Narrative: Rapid medical examination performed in triage by Myrna Quinteros PA-C. Patient is a 34 year old assigned female at presenting to the emergency department with a headache. Detailed physical exam and review of systems are deferred to the consulting sales executive. EKG, labs, and swabs ordered. Patient placed back in the waiting room pending room availability and results. Medications Administered Discontinued Medications Generic Name Dose Route Start Last Admin Trade Name Freq PRN Reason Stop Dose Admin Diphenhydramine HCl 12.5 mg 08/25/25 15:42 10/03/24 16:37 Diphenhydramine Hcl 50 Mg/Ml Vial IVPUSH 10/03/24 15:43 12.5 mg ONCE ONE Administration Sodium Chloride 1,000 mls @ 999 mls/hr 10/03/24 15:45 10/03/24 16:35 Ns IV 10/03/24 16:45 999 mls/hr .Q1H1M SEGUNDO Administration Ketorolac Tromethamine 15 mg 10/03/24 16:10 10/03/24 16:36 Ketorolac Tromethamine 15 Mg/Ml Vial IVPUSH 10/03/24 16:11 15 mg ONCE ONE Administration Metoclopramide HCl 10 mg 10/03/24 15:42 10/03/24 16:39 Metoclopramide Hcl 10 Mg/2 Ml Vial IVPUSH 10/03/24 15:43 10 mg ONCE ONE Administration Medical Decision Making Medical Decision Making [facility] Narrative: Patient is a 34-year-old English speaking female presenting to the emergency department with complaint of headache, photophobia and nausea since yesterday. On exam patient is awake, A+Ox3, VS WNL, afebrile, normal neurological exam without focal deficits, physical exam findings as above. Given reported symptoms and physical exam findings, initial differential includes but is not limited to migraine, viral illness, electrolyte abnormality. Labs notable for no leukocytosis, no anemia, negative HCG. Treated with IV fluids, migraine cocktail and reports significant improvement in symptoms. Flu and covid swabs ordered but not collected by nursing staff. Patient declining waiting in the ED for viral testing, states her symptoms have improved. Advised rest, adequate fluids, Tylenol and ibuprofen if symptoms return. Follow up with PCP. Return precautions discussed at bedside. Patient verbalized understanding of and agreement with plan. Differential Diagnosis Differential Diagnoses: The differential diagnosis associated with the presentation includes as per [facility] Admission/Observation Consideration of admission/observation: Escalation of care including admission/observation considered Patient would have been admitted to the hospital had their clinical presentation warranted hospital admission. Lab Data [facility] Lab Attestation statement: I reviewed the patient's lab results. as per [facility] 10/03/24 15:33 10/03/24 15:33 Labs: Lab Results 10/03/24 Range/Units 15:33 WBC 8.4 (4.8-10.8) X10*3/uL RBC 4.10 L (4.20-5.50) X10*6/uL Hgb 12.1 (12.0-16.0) g/dl Hct 36.3 L (37.0-47.0) % MCV 88.5 (80.0-98.0) fL MCH 29.5 (27.0-33.0) pg MCHC 33.3 (31.0-35.0) g/dl RDW 13.0 (11.0-16.0) % Plt Count 248 (160-400) X10*3/uL MPV 10.4 (9.4-12.3) fL Immature Gran % (Auto) 0.2 (0.0-0.4) % Neut % (Auto) 63.8 (45-73) % Lymph % (Auto) 30.1 (20-40) % Coffey % (Auto) 5.0 (2-11) % Eos % (Auto) 0.5 (0-4) % Baso % (Auto) 0.4 (0-2) % Lymph # (Auto) 2.5 (1.2-4.9) X10*3/uL Coffey # (Auto) 0.4 (0.1-1.2) X10*3/uL Eos # (Auto) 0.0 (0.0-0.4) X10*3/uL Baso # (Auto) 0.0 (0.0-0.2) X10*3/uL Abs Immat Gran (auto) 0.02 (0.00-0.03) X10*3/uL Absolute Neuts (auto) 5.3 (2.0-8.3) x10*3/uL Absolute Nucleated RBC 0.000 (0.0-0.012) X10*3/uL Nucleated RBC % (auto) 0.0 (0.0-0.2) /100WBC Sodium 140 (135-145) mmol/L Potassium 3.9 (3.3-5.1) mmol/L Chloride 107 (96-108) mmol/L Carbon Dioxide 27 (22-29) mmol/L Anion Gap 10 L (12-20) BUN 10 (9-16) mg/dL Creatinine 0.67 (0.5-1.4) mg/dL Estim Creat Clear Calc 109.5 Estimated GFR > 60 Random Glucose 92 (60-115) mg/dL Calcium 9.1 (8.4-10.2) mg/dL Magnesium 2.1 (1.6-2.6) mg/dL Total Bilirubin 0.5 (0.0-1.0) mg/dL AST 28 (5-31) U/L ALT 21 (0-31) U/L Alkaline Phosphatase 102 (39-117) U/L Total Protein 7.4 (6.5-8.0) g/dL Albumin 4.8 (3.5-5.0) g/dL Beta HCG, Quant < 2 mIU/mL External Record Review External record reviewed: Inpatient record, Office record and Outpatient record Discharge Plan Discharge Clinical Impression: Headache Patient Disposition: Home, Self-Care Instructions: Acute Headache (DC) Additional Instructions: You have been evaluated in the emergency department today for headache. Your evaluation did not show evidence of medical conditions requiring emergent intervention at this time, and your pain improved with medication in the ED. We recommend you take 600 mg ibuprofen every 6 hours or Tylenol 650 mg every 6 hours as needed for pain. If needed, you can alternate these medications so that you take 1 medication every 3 hours. For instance, at noon take ibuprofen, then at 3:00 p.m. take Tylenol, then at 6:00 p.m. take ibuprofen. Please follow-up with your primary care provider within 2 days. Return to the emergency department if you experience worsening or uncontrolled pain, vision changes, recurrent vomiting, difficulty with normal activities, abnormal behavior, difficulty walking, numbness, weakness, or any other concerning symptoms. Prescriptions: No Action amoxicillin 500 mg tablet 500 mg PO TID Qty: 15 0RF cyclobenzaprine 10 mg tablet 10 mg PO TID PRN (Reason: muscle spasm) Qty: 20 0RF ibuprofen 600 mg tablet 600 mg PO Q6H PRN (Reason: pain) Qty: 30 0RF omeprazole 20 mg capsule,delayed release(DR/EC) 20 mg PO DAILY Qty: 14 0RF ondansetron 4 mg tablet,disintegrating 4 mg PO Q8H PRN (Reason: nausea and vomiting) Qty: 20 0RF acetaminophen 500 mg capsule 1,000 mg PO Q8H PRN (Reason: fever or pain) Qty: 14 0RF Stand Alone Forms: Work/School Release Print Language: English
[2024-10-03 15:37] LABS: MANUAL DIFF FLAG NO
[2024-10-03 15:38] LABS: Hematocrit 36.3 % (37.0-47.0); Hemoglobin 12.1 g/dl (12.0-16.0); Imm Gran Abs Auto 0.02 X10*3/uL (0.00-0.03); Imm Gran Pct Auto 0.2 % (0.0-0.4); Lymphocytes Absolute Auto 2.5 X10*3/uL (1.2-4.9); Mean Corpuscular HGB Conc 33.3 g/dl (31.0-35.0); Mean Corpuscular Hemoglobin 29.5 pg (27.0-33.0); Mean Corpuscular Volume 88.5 fL (80.0-98.0); NRBC Abs Auto 0.000 X10*3/uL (0.0-0.012); NRBC Pct Auto 0.0 /100WBC (0.0-0.2); Platelet Count 248 X10*3/uL (160-400); Red Blood Count 4.10 X10*6/uL (4.20-5.50); White Blood Count 8.4 X10*3/uL (4.8-10.8)
[2024-10-03 15:53] LABS: Alanine Aminotransferase 21 U/L (0-31); Albumin Level 4.8 g/dL (3.5-5.0); Alkaline Phosphatase 102 U/L (39-117); Anion Gap 10 (12-20); Aspartate Amino Transferase 28 U/L (5-31); Blood Urea Nitrogen 10 mg/dL (9-16); Calcium 9.1 mg/dL (8.4-10.2); Carbon Dioxide 27 mmol/L (22-29); Chloride 107 mmol/L (96-108); Creatinine Clr Calc Pharmacy 109.5; Estimated Glomerular Filt Rate > 60; Magnesium 2.1 mg/dL (1.6-2.6); Potassium 3.9 mmol/L (3.3-5.1); Sodium 140 mmol/L (135-145); Total Protein 7.4 g/dL (6.5-8.0)
--- OUTSIDE RECORDS SUMMARY | 2024-10-03 16:38 | XMS_ITS | Clinical Summary ---
Author Organization [facility] Address [address] [place] [address] Care Team Providers Care Pet Nutrition Specialist Name Role Phone Unavailable Primary Care Provider Unavailabl e Encounters Date Type Department Care Team Description 08/30/2024 Population Health Risk Score [facility] (C[facility]) Department [address] [place] [address] Provider, Population Health Generic from Last 3 Months Social History Tobacco Use Types Packs/Day Years Used Date Smoking Tobacco: Never Assessed Comments Unknown Sex and Gender Information Value Date Recorded Sex Assigned at Female 10/14/2022 1:31 PM EDT Legal Sex Female 1:31 PM EDT Gender Identity Female 10/14/2022 1:31 PM EDT Sexual Orientation Not on file Plan of Treatment Health Maintenance Due Date Last Done Comments Depression Screening 1990 SDOH Screening 1990 Disability Screening 1990 Alcohol/Substance Use Screening 2002 Tobacco Screening 2002 Family Planning (PISQ) 2005 HPV Vaccines (1 - 3-dose series) 2005 Hepatitis C Screening 01/28/2008 Pap Smear 2011 Cervical Cancer Screening 01/28/2020 HPV/Cotest 01/28/2020 COVID-19 Vaccine (1 - 2023-2 5 season) 2023 Influenza Vaccine (#1) 2024 10/16/2016 DTaP/Tdap/Td Vaccines (4 - T d or Tdap) 07/17/2032 07/17/2022, 03/06/2021, 02/05/2017 Zoster Vaccines (1 of 2) 01/28/2040 RSV Patients and Patients Aged 60 years or older (1 - 1-dose 75+ series) 2065 Pneumococcal Vaccine: Pediatrics (0 to 5 Years) and At-Risk Patients (6 to 49) Years Completed 06/25/2023 Hepatitis B Vaccines Completed 07/28/2023, 06/25/2023 HIV Screening Completed 07/29/2023, 07/29/2023, 04/19/2018 HIB Vaccines Aged Out No longer eligi ble based on patient's age to complete this topic Hepatitis A Vaccines Aged Out No long er eligible based on patient's age to complete this topic IPV Vaccines Aged Out No longer eligi ble based on patient's age to complete this topic Meningococcal B Vaccine Aged Out No l onger eligible based on patient's age to complete this topic Meningococcal Vaccine Aged Out No janeth cam eligible based on patient's age to complete this topic RSV under 20 months Aged Out No longe r eligible based on patient's age to complete this topic Rotavirus Vaccines Aged Out No longer eligible based on patient's age to complete this topic Insurance [place] [address] C3
--- OUTSIDE RECORDS SUMMARY | 2024-10-03 16:38 | XMS_ITS | Clinical Summary ---
[facility] Organization [facility] Address [address] [place] [address] Care Team Providers Care Garbage Person Name Role Phone Yovanny Joya MD Primary Care Provider [phone] Surgical History Surgery Date Site/Laterality Comments SECTION [...] Maintenance Due Date Last Done Comments Hepatitis A Vaccines (1 of 2 - Risk 2-dose series) 2009 Hepatitis B Vaccines (1 of 3 - 19+ 3-dose series) 2009 HIV Screening 01/12/2022 Hepatitis C Screening 01/12/2022 Social Influencers of Health Screening 01/12/2022 Cervical Cancer Screening: P ap Smear 07/20/2023 07/19/2020, 01/11/2018, 01/11/2018 COVID-19 Vaccine (1 - 2023-2 5 season) 2023 Depression Screening 02/10/2024 Influenza Vaccine (#1) 2024 10/16/2016 DTaP,Tdap,and Td Vaccines (3 - Td [...] 5 Years) and At-Risk Patients (6 to 49 Years) Aged Out No longer eligible b [...] RESULTING AGENCY - 07/27/2020 2:21 PM EDT [id number] THINPREP PAP, IMAGED: NEGATIVE FOR SQUAMOUS INTRAEPITHELIAL LESION AND MALIGNANCY . CLUE CELLS ARE PRESENT. PRANEETH LOPEZ , CT(ASCP) (CASE ELECTRONICALLY SIGNED 07 27 2020) RESULT OF APTIMA HIGH RISK HPV ASSAY: HIGH RISK HPV: NEGATIVE (SEROTYPES 16,18,31,33,35,39,45,51,52,56,58,59,66,68) COMPLETED ON 2020-07-24 ADEQUACY: SATISFACTORY ENDOCERVICAL/TRANSFORMATION ZONE COMPONENT ABSENT. SOURCE: THINPREP PAP HPV ANY DX: REFLEX 16 AND 18, CERVICAL, IMAGED CLINICAL INFORMATION: HPV ANY DIAGNOSIS. HORMONES, Z12.4, PAP HX NEG 2018. Karina Thompson [facility] CYTOLOGY ORDERABLES Final Result HISTORICAL TESTING LAB RESULTING AGENCY from Last 3 Months or Most Recently Relevant to Health Maintenance Care Teams Garbage Person Relationship Specialty Start Date End Date Yovanny Joya MD [address] [place] [address] [id number] [place] [address] PCP - General 06/04/15
[2024-10-03 17:32] VITALS: BP 119/68; PULSE 63; RESP 18; TEMP 36.6; O2SAT 100
== END 2024-10-03 17:58 | disposition home or self-care (01) ==
PROVIDERS: Physician Assistant Medical; Registered Nurse Emergency; Emergency Provider Emergency Medicine; PCP Dentist General Practice
DX: R51.9 Headache, unspecified (principal); H53.143 Visual discomfort, bilateral; R11.0 Nausea; R10.2 Pelvic and perineal pain; Z79.899 Other long term (current) drug therapy
CPT/HCPCS: 36415; 80053; 83735; 84702; 85025; 96361; 96374; 96375; 99283; 99284; J1200; J1885; J2765